=== PATIENT | female | born 1970 | race Caucasian/White ===

== ENCOUNTER 2017-03-06 12:45 | Emergency (ER) | payer MEDICAID, OTHER ==
[~2017-03-06] VITALS: Wt 130.0 kg
[~2017-03-06 12:45] MED LIST: LEVE500S8 PO; MAGN400T27 PO; ONDA-43 PO; POTA20TA96 PO; [UNRECOGNIZED DRUG - CODE] PR
[2017-03-06 12:47] VITALS: Wt 130.0 kg
[2017-03-06] MEDS ORDERED: HYDROmorphONE 2 MG/ML SYG IV STA (13:41)
--- NOTE | 2017-03-06 14:56 | RADRPT ---
PROCEDURE: US Lower extremity Venous. CLINICAL INDICATION: Right leg edema , pain TECHNIQUE: Multiple sonographic images of the right lower extremity deep venous system was obtaine d utilizing grayscale, color-flow, compressive sonography and doppler imaging with augmentation. Th e images were reviewed on a PACS workstation. COMPARISON: None. FINDINGS: There is normal compressibility and flow within the right common femoral, femoral, posterior tibial, peroneal and popliteal veins. RPTAT: AA IMPRESSION: No sonographic evidence for deep venous thrombosis. .Eliazar Burgos MD, MD Date Time Electronically viewed and signed by .Elizaar Burgos MD, on 03/06/2017 14:55 .S/
--- NOTE | 2017-03-06 14:56 | RADRPT ---
PROCEDURE: US Lower extremity Venous. CLINICAL INDICATION: Right leg edema , pain TECHNIQUE: Multiple sonographic images of the right lower extremity deep venous system was obtaine d utilizing grayscale, color-flow, compressive sonography and doppler imaging with augmentation. Th e images were reviewed on a PACS workstation. COMPARISON: None. FINDINGS: There is normal compressibility and flow within the right common femoral, femoral, posterior tibial, peroneal and popliteal veins. RPTAT: AA IMPRESSION: No sonographic evidence for deep venous thrombosis. .Eliazar Burgos MD, MD Date Time Electronically viewed and signed by .Eliazar Burgos MD, on 03/06/2017 14:55 .S/
--- NOTE | 2017-03-06 15:14 | ERD ---
ER Documentation Chief Complaint Chief Complaint R LEG PAIN DENIES INJURY; CURRENTLY ON CHEMO (LAST ONE ON MON) HPI 46y/o female patient with metastatic lung cancer, presents to the emergency department with c/o severe acute right lower extremity pain, that started 2 hours ago. pain is sharp, rated 10/10, radiated to the entire extremity. Denies fever, chills, N/V/D. Denies history of previous episodes. Treatment attempted: The patient is taking Percocet without good response ROS SYSTEMIC symptoms: no fever, chills, no night sweats, no weight loss EYE symptoms: No blurred vision, no eye discharge OTOLARYNGEAL symptoms: No hearing loss. No ear pain, no sore throat CARDIOVASCULAR symptoms: No chest pain or discomfort, no palpitations. PULMONARY symptoms: No dyspnea, no cough, no wheezing. GASTROINTESTINAL symptoms: No abdominal pain, no nausea, no vomiting, no diarrhea MUSCULOSKELETAL symptoms: + arthralgias, +muscle aches. NEUROLOGY symptoms: No confusion, no syncope, no numbness or tingling. SKIN no rashes All systems reviewed and are negative except as per history of present illness. Medications Home Meds Active Scripts Hydromorphone Hcl* (Dilaudid*) 2 Mg Tablet, 2 MG PO Q6H Y for SEVERE PAIN LEVEL 7-10, #14 TAB Prov:SANFORD SARABIA MD 03/06/17 Potassium Chloride* (Potassium Chloride*) 20 Meq Tablet.er, 20 MEQ PO DAILY, #1 TAB.SA Prov:ELDER HORN MD 07/14/15 Magnesium Oxide* (Mag-Oxide*) 400 Mg Tablet, 400 MG PO DAILY, #20 TAB Prov:ELDER HORN MD 07/14/15 Levetiracetam* (Keppra*) 500 Mg/5 Ml Solution, 500 MG PO BID, #60 BOTTLE 1 Refill Prov:ELDER HORN MD 07/14/15 Promethazine Hcl* (Phenergan* Supp) 12.5 Mg/Supp.rect Supp.rect, 12.5 MG [place] Q6H Y for NAUSEA AND OR VOMITING, #1 SUPP.RECT Prov:ELDER HORN MD 07/14/15 Ondansetron Hcl* (Zofran*) 4 Mg Tab, 4 MG PO Q4H Y for NAUSEA AND OR VOMITING, # 1 TAB Prov:ELDER HORN MD 07/14/15 Allergies Allergies: Coded Allergies: No Known Allergy (Unverified , 07/13/15) PMhx/Soc 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 Alert and fully oriented. EYES: PERRLA, EOMI, Sclera and conjunctiva appear normal. EARS: Canals clear, tympanic membranes WNL THROAT: Normal oropharynx. NECK: Supple, No lymphadenopathy. Full ROM without pain or tenderness. HEART: RRR, no rubs, murmurs, clicks or gallops. LUNGS: Clear to auscultation. ABDOMEN: Soft, non-tender without masses or hepatosplenomegaly. EXTREMITIES: No edema bilaterally, (+) pedal pulses MUSC: Full ROM, no deformity, normal back exam Result Diagram: 03/06/17 1400 03/06/17 1400 Results 24 hrs Laboratory Tests Test 03/06/17 14:00 White Blood Count 6.910^3/ul Red Blood Count 4.0710^6/ul Hemoglobin 10.7g/dl Hematocrit 34.6% Mean Corpuscular Volume 85.0fl Mean Corpuscular Hemoglobin 26.3pg Mean Corpuscular Hemoglobin Concent 30.9g/dl Red Cell Distribution Width 15.5% Platelet Count 60700^3/UL Mean Platelet Volume 10.7fl Neutrophils % % Segmented Neutrophils % (Manual) 81% Lymphocytes % % Lymphocytes % (Manual) 18% Monocytes % % Eosinophils % % Eosinophils % (Manual) 1% Basophils % % Nucleated Red Blood Cells % 0.0/100WBC Neutrophils # 10^3/ul Absolute Lymphocytes (Manual) 1.210^3/ul Lymphocytes # 1.210^3/ul Monocytes # 10^3/ul Eosinophils # 0.110^3/ul Basophils # 10^3/ul Nucleated Red Blood Cells # 10^3/ul Sodium Level 137mmol/L Potassium Level 4.4mmol/L Chloride Level 98mmol/L Carbon Dioxide Level 30mmol/L Anion Gap 13 Blood Urea Nitrogen 25mg/dl Creatinine 0.86mg/dl Glucose Level 107mg/dl Calcium Level 9.1mg/dl Total Bilirubin 1.2mg/dl Direct Bilirubin 0.00mg/dl Indirect Bilirubin 1.2mg/dl Aspartate Amino Transf (AST/SGOT) 63IU/L Alanine Aminotransferase (ALT/SGPT) 275IU/L Alkaline Phosphatase 230IU/L Total Protein 7.1g/dl Albumin 3.8g/dl Globulin 3.30g/dl Albumin/Globulin Ratio 1.15 Current Medications Medications (Trade) Dose Ordered Sig/Nikolay Route PRN Reason Start Time Stop Time Status Last Admin Dose Admin Hydromorphone HCl (Dilaudid) 2 mg ONCE STAT IV 03/06/17 13:41 03/06/17 13:44 DC 03/06/17 14:11 [place] [address] Radiology Main Line: [phone] DIAGNOSTIC IMAGING REPORT Patient: IVONNE BRASEWLL : 1970 Age: 46 Sex: F MR #: [id number] DOS: 03/06/17 0000 Ordering MD: SANFORD SARABIA MD Location: [facility] Room/Bed: PROCEDURE: US Lower extremity Venous. CLINICAL INDICATION: Right leg edema , pain TECHNIQUE: Multiple sonographic images of the right lower extremity deep venous system was obtained utilizing grayscale, color-flow, compressive sonography and doppler imaging with augmentation. The images were reviewed on a PACS workstation. COMPARISON: None. FINDINGS: There is normal compressibility and flow within the right common femoral, femoral, posterior tibial, peroneal and popliteal veins. RPTAT: AA IMPRESSION: No sonographic evidence for deep venous thrombosis. .Eliazar Burgos MD, MD Date Time Electronically viewed and signed by .Eliazar Burgos MD, MD on 03/06/2017 14: 55 .S/ CC: SANFORD SARABIA MD Procedures/[facility] 46y/o chronic female patient with history of metastatic lung cancer under current chemotherapy, presents to the ED c/o acute onset of right leg pain for 3 hours. Vital signs revealed tachycardia likely secondary to pain, Physical exam unremarkable, no cough no respiratory distress no chest pain or palpitations. Differential diagnosis include but not limited to: Acute musculoskeletal injury, stress fracture, cellulitis, abscess, shingles, DVT less likely arterial occlusion. Pertinent Data: Labs: CBC: shows anemia, most likely 2/2 malignancy and chemo, CMP: normal kidney function, transaminases elevated likely 2/2 to chemo, normal electrolytes. Venous Doppler: FINDINGS: There is normal compressibility and flow within the right common femoral, femoral, posterior tibial, peroneal and popliteal veins. Physical examination and clinical presentation consistent most likely with acute right leg pain without injury DVT is ruled out. During the ED course the patient received treatment with Dilaudid IV presenting overall improvement of the symptoms. Results and medical impression discussed with patient who agrees with management. The patient will be discharged home with a Rx for Dilaudid p.o. as needed for severe pain Side effects of prescribed narcotic medications (drowsiness, constipation, habituation) were reviewed. If symptoms persist, worsen or new symptoms develop, then patient is instructed to follow-up with the primary care provider. If the patient is unable to see the primary care provider, then return to the ED immediately. Departure Diagnosis: Primary Impression: Pain of right leg Additional Impression: Severe pain Condition: Stable Additional Instructions: Muchas walter por [facility] para [place] servicio. Esperamos que en [place] visita a la mohsen de emergencia [place] problema medico haya sido solucionado y que se sienta mucho mejor. Para estar seguros que wilcox mejoria sigue en proceso, le pedimos el favor de hacer ana ophelia de seguimiento medico con [place] doctor primario en los proximos 2-4 ortega. Lleve con usted estos documentos y las medicinas recetadas. Si etelvina sintomas empeoran y no puede tiffanie a [place] doctor, por favor regrese a mohsen de emergencia. En frances que usted no tenga un mdico de atencin primaria: Llame al mdico o clnica comunitaria de referencia que aparece abajo claudio las horas de consultorio para hacer ana ophelia para que le vean. CLINICAS: [facility] [phone] [facility] [phone] [address] [facility] [phone] [address] [facility]. [facility] [phone] [address] [place] [address] [phone] [facility]. [phone] SANFORD VALLE MD Mar 06, 2017 15:14
--- NOTE | 2017-03-06 15:14 | ERD ---
ER Documentation Chief Complaint Chief Complaint R LEG PAIN DENIES INJURY; CURRENTLY ON CHEMO (LAST ONE ON MON) HPI 46y/o female patient with metastatic lung cancer, presents to the emergency department with c/o severe acute right lower extremity pain, that started 2 hours ago. pain is sharp, rated 10/10, radiated to the entire extremity. Denies fever, chills, N/V/D. Denies history of previous episodes. Treatment attempted: The patient is taking Percocet without good response ROS SYSTEMIC symptoms: no fever, chills, no night sweats, no weight loss EYE symptoms: No blurred vision, no eye discharge OTOLARYNGEAL symptoms: No hearing loss. No ear pain, no sore throat CARDIOVASCULAR symptoms: No chest pain or discomfort, no palpitations. PULMONARY symptoms: No dyspnea, no cough, no wheezing. GASTROINTESTINAL symptoms: No abdominal pain, no nausea, no vomiting, no diarrhea MUSCULOSKELETAL symptoms: + arthralgias, +muscle aches. NEUROLOGY symptoms: No confusion, no syncope, no numbness or tingling. SKIN no rashes All systems reviewed and are negative except as per history of present illness. Medications Home Meds Active Scripts Hydromorphone Hcl* (Dilaudid*) 2 Mg Tablet, 2 MG PO Q6H Y for SEVERE PAIN LEVEL 7-10, #14 TAB Prov:SANFORD SARABIA MD 03/06/17 Potassium Chloride* (Potassium Chloride*) 20 Meq Tablet.er, 20 MEQ PO DAILY, #1 TAB.SA Prov:ELDER HORN MD 07/14/15 Magnesium Oxide* (Mag-Oxide*) 400 Mg Tablet, 400 MG PO DAILY, #20 TAB Prov:ELDER HORN MD 07/14/15 Levetiracetam* (Keppra*) 500 Mg/5 Ml Solution, 500 MG PO BID, #60 BOTTLE 1 Refill Prov:ELDER HORN MD 07/14/15 Promethazine Hcl* (Phenergan* Supp) 12.5 Mg/Supp.rect Supp.rect, 12.5 MG [place] Q6H Y for NAUSEA AND OR VOMITING, #1 SUPP.RECT Prov:ELDER HORN MD 07/14/15 Ondansetron Hcl* (Zofran*) 4 Mg Tab, 4 MG PO Q4H Y for NAUSEA AND OR VOMITING, # 1 TAB Prov:ELDER HORN MD 07/14/15 Allergies Allergies: Coded Allergies: No Known Allergy (Unverified , 07/13/15) PMhx/Soc 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 Alert and fully oriented. EYES: PERRLA, EOMI, Sclera and conjunctiva appear normal. EARS: Canals clear, tympanic membranes WNL THROAT: Normal oropharynx. NECK: Supple, No lymphadenopathy. Full ROM without pain or tenderness. HEART: RRR, no rubs, murmurs, clicks or gallops. LUNGS: Clear to auscultation. ABDOMEN: Soft, non-tender without masses or hepatosplenomegaly. EXTREMITIES: No edema bilaterally, (+) pedal pulses MUSC: Full ROM, no deformity, normal back exam Result Diagram: 03/06/17 1400 03/06/17 1400 Results 24 hrs Laboratory Tests Test 03/06/17 14:00 White Blood Count 6.910^3/ul Red Blood Count 4.0710^6/ul Hemoglobin 10.7g/dl Hematocrit 34.6% Mean Corpuscular Volume 85.0fl Mean Corpuscular Hemoglobin 26.3pg Mean Corpuscular Hemoglobin Concent 30.9g/dl Red Cell Distribution Width 15.5% Platelet Count 65342^3/UL Mean Platelet Volume 10.7fl Neutrophils % % Segmented Neutrophils % (Manual) 81% Lymphocytes % % Lymphocytes % (Manual) 18% Monocytes % % Eosinophils % % Eosinophils % (Manual) 1% Basophils % % Nucleated Red Blood Cells % 0.0/100WBC Neutrophils # 10^3/ul Absolute Lymphocytes (Manual) 1.210^3/ul Lymphocytes # 1.210^3/ul Monocytes # 10^3/ul Eosinophils # 0.110^3/ul Basophils # 10^3/ul Nucleated Red Blood Cells # 10^3/ul Sodium Level 137mmol/L Potassium Level 4.4mmol/L Chloride Level 98mmol/L Carbon Dioxide Level 30mmol/L Anion Gap 13 Blood Urea Nitrogen 25mg/dl Creatinine 0.86mg/dl Glucose Level 107mg/dl Calcium Level 9.1mg/dl Total Bilirubin 1.2mg/dl Direct Bilirubin 0.00mg/dl Indirect Bilirubin 1.2mg/dl Aspartate Amino Transf (AST/SGOT) 63IU/L Alanine Aminotransferase (ALT/SGPT) 275IU/L Alkaline Phosphatase 230IU/L Total Protein 7.1g/dl Albumin 3.8g/dl Globulin 3.30g/dl Albumin/Globulin Ratio 1.15 Current Medications Medications (Trade) Dose Ordered Sig/Nikolay Route PRN Reason Start Time Stop Time Status Last Admin Dose Admin Hydromorphone HCl (Dilaudid) 2 mg ONCE STAT IV 03/06/17 13:41 03/06/17 13:44 DC 03/06/17 14:11 [place] [address] Radiology Main Line: [phone] DIAGNOSTIC IMAGING REPORT Patient: IVONNE BRASWELL : 1970 Age: 46 Sex: F MR #: [id number] DOS: 03/06/17 0000 Ordering MD: SANFORD SARABIA MD Location: [facility] Room/Bed: PROCEDURE: US Lower extremity Venous. CLINICAL INDICATION: Right leg edema , pain TECHNIQUE: Multiple sonographic images of the right lower extremity deep venous system was obtained utilizing grayscale, color-flow, compressive sonography and doppler imaging with augmentation. The images were reviewed on a PACS workstation. COMPARISON: None. FINDINGS: There is normal compressibility and flow within the right common femoral, femoral, posterior tibial, peroneal and popliteal veins. RPTAT: AA IMPRESSION: No sonographic evidence for deep venous thrombosis. .Eliazar Burgos MD, MD Date Time Electronically viewed and signed by .Eliazar Burgos MD, MD on 03/06/2017 14: 55 .S/ CC: SANFORD SARABIA MD Procedures/[facility] 46y/o chronic female patient with history of metastatic lung cancer under current chemotherapy, presents to the ED c/o acute onset of right leg pain for 3 hours. Vital signs revealed tachycardia likely secondary to pain, Physical exam unremarkable, no cough no respiratory distress no chest pain or palpitations. Differential diagnosis include but not limited to: Acute musculoskeletal injury, stress fracture, cellulitis, abscess, shingles, DVT less likely arterial occlusion. Pertinent Data: Labs: CBC: shows anemia, most likely 2/2 malignancy and chemo, CMP: normal kidney function, transaminases elevated likely 2/2 to chemo, normal electrolytes. Venous Doppler: FINDINGS: There is normal compressibility and flow within the right common femoral, femoral, posterior tibial, peroneal and popliteal veins. Physical examination and clinical presentation consistent most likely with acute right leg pain without injury DVT is ruled out. During the ED course the patient received treatment with Dilaudid IV presenting overall improvement of the symptoms. Results and medical impression discussed with patient who agrees with management. The patient will be discharged home with a Rx for Dilaudid p.o. as needed for severe pain Side effects of prescribed narcotic medications (drowsiness, constipation, habituation) were reviewed. If symptoms persist, worsen or new symptoms develop, then patient is instructed to follow-up with the primary care provider. If the patient is unable to see the primary care provider, then return to the ED immediately. Departure Diagnosis: Primary Impression: Pain of right leg Additional Impression: Severe pain Condition: Stable Additional Instructions: Muchas walter por [facility] para [place] servicio. Esperamos que en [place] visita a la mohsen de emergencia [place] problema medico haya sido solucionado y que se sienta mucho mejor. Para estar seguros que wilcox mejoria sigue en proceso, le pedimos el favor de hacer ana ophelia de seguimiento medico con [place] doctor primario en los proximos 2-4 ortega. Lleve con usted estos documentos y las medicinas recetadas. Si etelvina sintomas empeoran y no puede tiffanie a [place] doctor, por favor regrese a mohsen de emergencia. En frances que usted no tenga un mdico de atencin primaria: Llame al mdico o clnica comunitaria de referencia que aparece abajo claudio las horas de consultorio para hacer ana ophelia para que le vean. CLINICAS: [facility] [phone] [facility] [phone] [address] [facility] [phone] [address] [facility]. [facility] [phone] [place] [id number] [phone] [facility]. [phone] SANFORD VALLE MD Mar 06, 2017 15:14
--- NOTE | 2017-03-06 15:14 | ERD ---
ER Documentation Chief Complaint Chief Complaint R LEG PAIN DENIES INJURY; CURRENTLY ON CHEMO (LAST ONE ON MON) HPI 46y/o female patient with metastatic lung cancer, presents to the emergency department with c/o severe acute right lower extremity pain, that started 2 hours ago. pain is sharp, rated 10/10, radiated to the entire extremity. Denies fever, chills, N/V/D. Denies history of previous episodes. Treatment attempted: The patient is taking Percocet without good response ROS SYSTEMIC symptoms: no fever, chills, no night sweats, no weight loss EYE symptoms: No blurred vision, no eye discharge OTOLARYNGEAL symptoms: No hearing loss. No ear pain, no sore throat CARDIOVASCULAR symptoms: No chest pain or discomfort, no palpitations. PULMONARY symptoms: No dyspnea, no cough, no wheezing. GASTROINTESTINAL symptoms: No abdominal pain, no nausea, no vomiting, no diarrhea MUSCULOSKELETAL symptoms: + arthralgias, +muscle aches. NEUROLOGY symptoms: No confusion, no syncope, no numbness or tingling. SKIN no rashes All systems reviewed and are negative except as per history of present illness. Medications Home Meds Active Scripts Hydromorphone Hcl* (Dilaudid*) 2 Mg Tablet, 2 MG PO Q6H Y for SEVERE PAIN LEVEL 7-10, #14 TAB Prov:SANFORD SARABIA MD 03/06/17 Potassium Chloride* (Potassium Chloride*) 20 Meq Tablet.er, 20 MEQ PO DAILY, #1 TAB.SA Prov:ELDER HORN MD 07/14/15 Magnesium Oxide* (Mag-Oxide*) 400 Mg Tablet, 400 MG PO DAILY, #20 TAB Prov:ELDER HORN MD 07/14/15 Levetiracetam* (Keppra*) 500 Mg/5 Ml Solution, 500 MG PO BID, #60 BOTTLE 1 Refill Prov:ELDER HORN MD 07/14/15 Promethazine Hcl* (Phenergan* Supp) 12.5 Mg/Supp.rect Supp.rect, 12.5 MG [place] Q6H Y for NAUSEA AND OR VOMITING, #1 SUPP.RECT Prov:ELDER HORN MD 07/14/15 Ondansetron Hcl* (Zofran*) 4 Mg Tab, 4 MG PO Q4H Y for NAUSEA AND OR VOMITING, # 1 TAB Prov:ELDER HORN MD 07/14/15 Allergies Allergies: Coded Allergies: No Known Allergy (Unverified , 07/13/15) PMhx/Soc 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 Alert and fully oriented. EYES: PERRLA, EOMI, Sclera and conjunctiva appear normal. EARS: Canals clear, tympanic membranes WNL THROAT: Normal oropharynx. NECK: Supple, No lymphadenopathy. Full ROM without pain or tenderness. HEART: RRR, no rubs, murmurs, clicks or gallops. LUNGS: Clear to auscultation. ABDOMEN: Soft, non-tender without masses or hepatosplenomegaly. EXTREMITIES: No edema bilaterally, (+) pedal pulses MUSC: Full ROM, no deformity, normal back exam Result Diagram: 03/06/17 1400 03/06/17 1400 Results 24 hrs Laboratory Tests Test 03/06/17 14:00 White Blood Count 6.910^3/ul Red Blood Count 4.0710^6/ul Hemoglobin 10.7g/dl Hematocrit 34.6% Mean Corpuscular Volume 85.0fl Mean Corpuscular Hemoglobin 26.3pg Mean Corpuscular Hemoglobin Concent 30.9g/dl Red Cell Distribution Width 15.5% Platelet Count 06377^3/UL Mean Platelet Volume 10.7fl Neutrophils % % Segmented Neutrophils % (Manual) 81% Lymphocytes % % Lymphocytes % (Manual) 18% Monocytes % % Eosinophils % % Eosinophils % (Manual) 1% Basophils % % Nucleated Red Blood Cells % 0.0/100WBC Neutrophils # 10^3/ul Absolute Lymphocytes (Manual) 1.210^3/ul Lymphocytes # 1.210^3/ul Monocytes # 10^3/ul Eosinophils # 0.110^3/ul Basophils # 10^3/ul Nucleated Red Blood Cells # 10^3/ul Sodium Level 137mmol/L Potassium Level 4.4mmol/L Chloride Level 98mmol/L Carbon Dioxide Level 30mmol/L Anion Gap 13 Blood Urea Nitrogen 25mg/dl Creatinine 0.86mg/dl Glucose Level 107mg/dl Calcium Level 9.1mg/dl Total Bilirubin 1.2mg/dl Direct Bilirubin 0.00mg/dl Indirect Bilirubin 1.2mg/dl Aspartate Amino Transf (AST/SGOT) 63IU/L Alanine Aminotransferase (ALT/SGPT) 275IU/L Alkaline Phosphatase 230IU/L Total Protein 7.1g/dl Albumin 3.8g/dl Globulin 3.30g/dl Albumin/Globulin Ratio 1.15 Current Medications Medications (Trade) Dose Ordered Sig/Nikolay Route PRN Reason Start Time Stop Time Status Last Admin Dose Admin Hydromorphone HCl (Dilaudid) 2 mg ONCE STAT IV 03/06/17 13:41 03/06/17 13:44 DC 03/06/17 14:11 [place] [id number] Radiology Main Line: [phone] DIAGNOSTIC IMAGING REPORT Patient: IVONNE BRASWELL : 1970 Age: 46 Sex: F MR #: [id number] DOS: 03/06/17 0000 Ordering MD: SANFORD SARABIA MD Location: [facility] Room/Bed: PROCEDURE: US Lower extremity Venous. CLINICAL INDICATION: Right leg edema , pain TECHNIQUE: Multiple sonographic images of the right lower extremity deep venous system was obtained utilizing grayscale, color-flow, compressive sonography and doppler imaging with augmentation. The images were reviewed on a PACS workstation. COMPARISON: None. FINDINGS: There is normal compressibility and flow within the right common femoral, femoral, posterior tibial, peroneal and popliteal veins. RPTAT: AA IMPRESSION: No sonographic evidence for deep venous thrombosis. .Eliazar Burgos MD, MD Date Time Electronically viewed and signed by .Eliazar Burgos MD, MD on 03/06/2017 14: 55 .S/ CC: SANFORD SARABIA MD Procedures/[facility] 46y/o chronic female patient with history of metastatic lung cancer under current chemotherapy, presents to the ED c/o acute onset of right leg pain for 3 hours. Vital signs revealed tachycardia likely secondary to pain, Physical exam unremarkable, no cough no respiratory distress no chest pain or palpitations. Differential diagnosis include but not limited to: Acute musculoskeletal injury, stress fracture, cellulitis, abscess, shingles, DVT less likely arterial occlusion. Pertinent Data: Labs: CBC: shows anemia, most likely 2/2 malignancy and chemo, CMP: normal kidney function, transaminases elevated likely 2/2 to chemo, normal electrolytes. Venous Doppler: FINDINGS: There is normal compressibility and flow within the right common femoral, femoral, posterior tibial, peroneal and popliteal veins. Physical examination and clinical presentation consistent most likely with acute right leg pain without injury DVT is ruled out. During the ED course the patient received treatment with Dilaudid IV presenting overall improvement of the symptoms. Results and medical impression discussed with patient who agrees with management. The patient will be discharged home with a Rx for Dilaudid p.o. as needed for severe pain Side effects of prescribed narcotic medications (drowsiness, constipation, habituation) were reviewed. If symptoms persist, worsen or new symptoms develop, then patient is instructed to follow-up with the primary care provider. If the patient is unable to see the primary care provider, then return to the ED immediately. Departure Diagnosis: Primary Impression: Pain of right leg Additional Impression: Severe pain Condition: Stable Additional Instructions: Muchas walter por [facility] para wilcox servicio. Esperamos que en wilcox visita a la mohsen de emergencia wilcox problema medico haya sido solucionado y que se sienta mucho mejor. Para estar seguros que wilcox mejoria sigue en proceso, le pedimos el favor de hacer ana ophelia de seguimiento medico con wilcox doctor primario en los proximos 2-4 ortega. Lleve con usted estos documentos y las medicinas recetadas. Si etelvina sintomas empeoran y no puede tiffanie a wilcox doctor, por favor regrese a mohsen de emergencia. En frances que usted no tenga un mdico de atencin primaria: Llame al mdico o clnica comunitaria de referencia que aparece abajo claudio las horas de consultorio para hacer ana ophelia para que le vean. CLINICAS: [facility] [phone] [facility] [phone] [facility] [phone] [facility]. [facility] [phone] [place] [id number] [phone] [facility]. [phone] SANFORD VALLE MD Mar 06, 2017 15:14
[2017-03-06] MEDS ORDERED: HYDR2TAB36 PO (15:53)
[2017-03-06 16:04] VITALS: BP 119/68; PULSE 77; RESP 16; TEMP 98.3
== END 2017-03-06 16:05 | disposition home or self-care (01) ==
LOC: FTE 12:45
DX: M79.604 Pain in right leg (principal); Z85.118 Personal history of other malignant neoplasm of bronchus and lung; Z85.841 Personal history of malignant neoplasm of brain
CPT/HCPCS: 36415; 80053; 85025; 93971; 96374; 99284; J1170

== ENCOUNTER 2017-03-10 15:31 | Inpatient (IN) | payer OTHER ==
[~2017-03-10] VITALS: Ht 165.1 cm; Wt 115.5 kg
[~2017-03-10 15:31] MED LIST changes: +HYDR2TAB36 PO
[2017-03-10] MEDS ORDERED: ONDANSETRON 4 MG INJ IV STA ×2 (16:19→19:15)
[2017-03-10] MEDS ORDERED: SOD CHLORIDE 0.9% 1,000 ML IV STA (16:19)
[2017-03-10] MEDS ORDERED: HYDROmorphONE 1 MG/ML SYG IV STA ×2 (16:19→19:07)
[2017-03-10 17:20] LABS: ABNORMAL IP MESSAGE 1; HEMATOCRIT 27.1 % (37.0-47.0); HEMOGLOBIN 9.2 g/dl (12.0-16.0); MEAN CORPUSCULAR HEMOGLOBIN 27.7 pg (29.0-33.0); MEAN CORPUSCULAR HGB CONC 33.9 g/dl (32.0-37.0); MEAN CORPUSCULAR VOLUME 81.6 fl (82.0-101.0); MEAN PLATELET VOLUME 11.8 fl (7.4-10.4); PLATELET COUNT 83 10^3/UL (140-415); RED BLOOD COUNT 3.32 10^6/ul (4.20-5.40); RED CELL DISTRIBUTION WIDTH 14.9 % (11.5-14.5); WHITE BLOOD COUNT 0.5 10^3/ul (4.8-10.8)
[2017-03-10 17:33] LABS: INR 1.13; PROTIME 14.5 Sec (12.2-14.2); PT RATIO 1.1
[2017-03-10 17:40] LABS: ALANINE AMINOTRANSFERASE 62 IU/L (13-69); ALBUMIN 3.2 g/dl (3.3-4.9); ALKALINE PHOSPHATASE 104 IU/L (42-121); ANION GAP 13 (8-16); ASPARTATE AMINO TRANSFERASE 15 IU/L (15-46); BILIRUBIN,INDIRECT 0.7 mg/dl (0-1.1); BILIRUBIN,TOTAL 0.7 mg/dl (0.2-1.3); BLOOD UREA NITROGEN 18 mg/dl (7-20); CALCIUM 8.1 mg/dl (8.4-10.2); CARBON DIOXIDE 24 mmol/L (21-31); CHLORIDE 95 mmol/L (97-110); CREATININE 0.74 mg/dl (0.44-1.00); GLUCOSE 119 mg/dl (70-220); POTASSIUM 3.4 mmol/L (3.5-5.1); SODIUM 129 mmol/L (135-144); TOTAL PROTEIN 6.1 g/dl (6.1-8.1)
--- NOTE | 2017-03-10 18:15 | ERD ---
ER Documentation Chief Complaint Chief Complaint C/O N/V, WEAKNESS; ON CHEMO FOR LUNG CA HPI 46-year-old woman presents with multiple episodes of vomiting abdominal cramping , diarrhea. She started a 5 day course of chemotherapy about 2 weeks ago and states her last dose of radiation was 2 years ago. Patient has a history of stage IV metastatic lung cancer and is status post craniotomy. She denies fevers or chills, no chest pain or shortness of breath, no headache or blurry vision. Patient has not been able to tolerate oral analgesics at home. ROS All systems reviewed and are negative except as per history of present illness. Medications Home Meds Active Scripts Hydromorphone Hcl* (Dilaudid*) 2 Mg Tablet, 2 MG PO Q6H Y for SEVERE PAIN LEVEL 7-10, #14 TAB Prov:SANFORD SARABIA MD 03/06/17 Potassium Chloride* (Potassium Chloride*) 20 Meq Tablet.er, 20 MEQ PO DAILY, #1 TAB.SA Prov:ELDER HORN MD 07/14/15 Magnesium Oxide* (Mag-Oxide*) 400 Mg Tablet, 400 MG PO DAILY, #20 TAB Prov:ELDER HORN MD 07/14/15 Levetiracetam* (Keppra*) 500 Mg/5 Ml Solution, 500 MG PO BID, #60 BOTTLE 1 Refill Prov:ELDER HORN MD 07/14/15 Promethazine Hcl* (Phenergan* Supp) 12.5 Mg/Supp.rect Supp.rect, 12.5 MG GA Q6H Y for NAUSEA AND OR VOMITING, #1 SUPP.RECT Prov:ELDER HORN MD 07/14/15 Ondansetron Hcl* (Zofran*) 4 Mg Tab, 4 MG PO Q4H Y for NAUSEA AND OR VOMITING, # 1 TAB Prov:ELDER HORN MD 07/14/15 Reported Medications Docusate Sodium* (Docusate Sodium*) 100 Mg Capsule, 100 MG PO DAILY, #30 CAP 03/10/17 Allergies Allergies: Coded Allergies: No Known Allergy (Unverified , 07/13/15) PMhx/Soc Metastatic lung carcinoma 5 day course of chemotherapy was started 2 weeks ago, last radiation therapy was 2 years ago, history of seizure, craniotomy, chronic pain syndrome, obesity, prior intracerebral metastatic hemorrhage History of Surgery: Yes (CRANIOTOMY ) Anesthesia Reaction: No Hx Neurological Disorder: No Hx Respiratory Disorders: Yes (LUNG CA) Hx Cardiac Disorders: No Hx Psychiatric Problems: No Hx Miscellaneous Medical Probl: Yes (BRAIN CA) Hx Alcohol Use: No Hx Substance Use: No Hx Tobacco Use: No Smoking Status: Never smoker FmHx Family History: No diabetes Physical Exam Vitals Vital Signs Date Time Temp Pulse Resp B/P Pulse Ox O2 Delivery O2 Flow Rate FiO2 03/10/17 15:34 97.3 107 24 120/71 99 Physical Exam GENERAL: Well-developed, well-nourished, dehydrated, afebrile HEENT: Dry mucous membranes, pale conjunctiva, craniotomy scar, no cervical spine tenderness or step-off deformities, no goiter, no jaundice or icterus, extraocular movements intact without pain. No submandibular induration, and no pharyngeal erythema NEURO: Alert and oriented 3, cranial nerves II through XII intact bilaterally, pupils equal round reactive to light, no focal deficits or facial asymmetry, sensation intact distally Strength 5/5 in upper and lower extremities bilaterally CARDIAC: Tachycardic and regular, no murmurs rubs or gallops LUNGS: Clear bilaterally no wheezing crackles or stridor SKIN: Warm and dry to touch, no abrasions, contusions, or hematomas, no lacerations, no ecchymosis, no target lesions, and without ulcers EXTREMITIES: No clubbing cyanosis, 2+ pitting edema in the lower extremity bilaterally, calves are bilaterally symmetrical, no Homans sign, no popliteal cord sign. Distal pulses equal and bilateral PSYCH: Normal affect without agitation or irritability Result Diagram: 03/10/17170903/10/171709 Results 24 hrs Laboratory Tests Test 03/10/17 17:10 White Blood Count 0.510^3/ul Red Blood Count 3.3210^6/ul Hemoglobin 9.2g/dl Hematocrit 27.1% Mean Corpuscular Volume 81.6fl Mean Corpuscular Hemoglobin 27.7pg Mean Corpuscular Hemoglobin Concent 33.9g/dl Red Cell Distribution Width 14.9% Platelet Count 8310^3/UL Mean Platelet Volume 11.8fl Neutrophils % % Segmented Neutrophils % (Manual) 1% Band Neutrophils % (Manual) 10% Lymphocytes % % Lymphocytes % (Manual) 54% Monocytes % % Monocytes % (Manual) 13% Eosinophils % % Eosinophils % (Manual) 16% Basophils % % Metamyelocytes % (manual) 3% Blast Cells % (Manual) 3.1% Nucleated Red Blood Cells % 0.0/100WBC Neutrophils # 10^3/ul Neutrophils # (Manual) 0.010^3/ul Band Neutrophils # 0.010^3/ul Absolute Lymphocytes (Manual) 0.210^3/ul Lymphocytes # 10^3/ul Monocytes # 10^3/ul Absolute Monocytes (Manual) 0.010^3/ul Eosinophils # 10^3/ul Basophils # 10^3/ul Metamyelocytes # 0.010^3/ul Platelet Estimate NORMAL Giant Platelets 4% Polychromasia 1+ Poikilocytosis 3+ Anisocytosis 1+ Microcytosis 1+ Prothrombin Time 14.5Sec Prothrombin Time Ratio 1.1 INR International Normalized Ratio 1.13 Sodium Level 129mmol/L Potassium Level 3.4mmol/L Chloride Level 95mmol/L Carbon Dioxide Level 24mmol/L Anion Gap 13 Blood Urea Nitrogen 18mg/dl Creatinine 0.74mg/dl Glucose Level 119mg/dl Calcium Level 8.1mg/dl Total Bilirubin 0.7mg/dl Direct Bilirubin 0.00mg/dl Indirect Bilirubin 0.7mg/dl Aspartate Amino Transf (AST/SGOT) 15IU/L Alanine Aminotransferase (ALT/SGPT) 62IU/L Alkaline Phosphatase 104IU/L Total Protein 6.1g/dl Albumin 3.2g/dl Globulin 2.90g/dl Albumin/Globulin Ratio 1.10 Lipase < 10U/L Serum HCG, Qualitative POSITIVE Beta HCG, Quantitative 70150.0mIU/ml Current Medications Medications (Trade) Dose Ordered Sig/Nikolay Route PRN Reason Start Time Stop Time Status Last Admin Dose Admin Sodium Chloride (NS) 1,000 ml @ 1,000 mls/hr Q1H STAT IV 03/10/17 16:19 03/10/17 17:18 DC 03/10/17 16:56 Hydromorphone HCl (Dilaudid) 1 mg ONCE STAT IV 03/10/17 16:19 03/10/17 16:20 DC 03/10/17 16:56 Ondansetron HCl (Zofran Inj) 4 mg ONCE STAT IV 03/10/17 16:19 03/10/17 16:20 DC 03/10/17 16:56 Procedures/MDM IV line was established patient was placed on warp knitter rhythm strip revealed a sinus tachycardia at 110 bpm with upright P and T waves. Patient was afebrile I administered 1 L normal saline intravenously, hydromorphone 1 mg IV and Zofran 4 mg IV with good effect. One view chest x-ray performed, read by me there are multiple pulmonary nodules noted bilaterally, no acute infiltrates, no pneumothorax. CBC revealed a severe leukopenia 0.5, and overall thrombocytopenia, electrolytes revealed hypokalemia 3.4, liver function tests normal, troponin negative, urinalysis negative for infection. test was positive and serum beta-hCG elevated at about 40,000, I suspect this is secondary to her cancer and not . CT scan of the abdomen and pelvis was ordered due to her vomiting had to be deferred until status is confirmed. Pelvic ultrasound was performed no IUP was noted. Please refer to radiologist dictation for full report. Patient admitted to [facility] for continued medical management and pain control. CT abdomen and pelvis deferred until further evaluation. Departure Diagnosis: Primary Impression: Metastatic lung cancer (metastasis from lung to other site) Laterality: right Qualified Code: C34.91 - Primary malignant neoplasm of right lung metastatic to other site Additional Impressions: Thrombocytopenia Anemia Anemia type: unspecified type Qualified Code: D64.9 - Anemia, unspecified type Acute hypokalemia Leukopenia due to antineoplastic chemotherapy Condition: ROSEMARIE Gray MD Mar 10, 2017 18:06
--- NOTE | 2017-03-10 18:25 | RADRPT ---
PROCEDURE: Chest x-ray CLINICAL INDICATION: Abdominal pain TECHNIQUE: Chest single view COMPARISON: 07/12/2015 FINDINGS: The heart is normal in size. The pulmonary vessels are normal in caliber. The lungs are clear. Th e costophrenic angles are sharp. The visualized bony thorax is unremarkable. IMPRESSION: No acute cardiopulmonary disease. RPTAT: HH .Norberto Thomas MD, Date Time Electronically viewed and signed by .Norberto Thomas MD, on 03/10/2017 18:25 .W/
--- NOTE | 2017-03-10 19:18 | RADRPT ---
PROCEDURE: US Pelvis. CLINICAL INDICATION: vaginal bleeding TECHNIQUE: Multiple sonographic images of the pelvis were obtained utilizing a transabdominal and endovaginal technique. The images were reviewed on a PACS workstation. COMPARISON: None. FINDINGS: Limited study due to the patient's body habitus and limited mobility. The uterus is enlarged in size and demonstrates a heterogeneous appearance of the myometrium. There is a 7.9 cm heterogeneous mass in the fundus of the uterus, suspicious for fibroid. The uterus measu res 12.2 x 7.2 x 8.0 cm. The endometrial stripe is not well seen. The endometrium measures 1.4 mm in thickness. No intrauterine gestation is noted. The ovaries are not visualized. No free fluid is present within the pelvis.. RPTAT: AA IMPRESSION: No intrauterine gestation visualized. If there is a positive test, differential diagnosis includes early , missed abort ion or ectopic . Enlarged heterogeneous uterus with a possible large fundal fibroid. Ovaries not visualized. Follow-up ultrasound and HCG levels is recommended. .Eliazar Burgos MD, MD Date Time Electronically viewed and signed by .Eliazar Burgos MD, on 03/10/2017 19:18 .S/
[2017-03-10] MEDS ORDERED: PROMETHAZINE 12.5 MG SUPP PR PRN (19:30)
[2017-03-10] MEDS ORDERED: NACL 0.9% 3 ML SYG IV SCH (19:30)
[2017-03-10 20:06] VITALS: TEMP 100.2
[2017-03-10] MEDS ORDERED: DOCU-159 PO (20:16)
[2017-03-10 20:39] LABS: ANISOCYTOSIS 1+ (0-0); BLAST% (M) 3.1 % (0-0); BURR CELLS 2+ (0-0); EOSINOPHILS % (M) 16 % (0-7); GIANT THROMBO% (M) 4 % (0-0); METAMYELOCYTES %M 3 % (0-0); MICROCYTOSIS 1+ (0-0); MONOCYTES % (M) 13 % (0-11); PLATELET ESTIMATE NORMAL; POIKILOCYTOSIS 3+ (0-0); POLYCHROMASIA 1+ (0-0)
[2017-03-10 20:40] LABS: POSITIVE DIFF @See below
[2017-03-10] MEDS: morphine 2 MG INJ IV PRN (20:53)
[2017-03-10] MEDS: LEVETIRACETAM 500 MG TAB PO SCH (20:53)
[2017-03-10] MEDS: HYDROmorphONE 2 MG TAB PO PRN (21:56)
[2017-03-10] MEDS: D5-NS + KCL 20 MEQ 1,000 ML IV SCH (21:59)
[2017-03-10 22:05] VITALS: BP 138/79; RESP 22
[2017-03-10 22:18] VITALS: Ht 165.1 cm; Wt 115.5 kg
[2017-03-10 23:00] VITALS: BP 135/74; PULSE 116
[2017-03-10] MEDS: ONDANSETRON 4 MG INJ IV PRN (23:00)
[2017-03-11 00:25] LABS: ADD UMIC YES; UR ASCORBIC ACID NEGATIVE (NEGATIVE); UR BACTERIA FEW /HPF (NONE SEEN); UR BILIRUBIN (Dip) NEGATIVE (NEGATIVE); UR BLOOD (Dip) 1+ mg/dL (NEGATIVE); UR CLARITY CLEAR (CLEAR); UR COLOR YELLOW (YELLOW); UR GLUCOSE (Dip) NEGATIVE (NEGATIVE); UR KETONES (Dip) 2+ mg/dL (NEGATIVE); UR LEUKOCYTE ESTERASE (Dip) NEGATIVE Leu/ul (NEGATIVE); UR NITRITE (Dip) NEGATIVE (NEGATIVE); UR RBC 6 /HPF (0-5); UR SPECIFIC GRAVITY (Dip) 1.023 (1.003-1.030); UR SQUAMOUS EPITHELIAL CELL FEW /HPF (FEW); UR TOTAL PROTEIN (Dip) 2+ mg/dl (NEGATIVE); UR UROBILINOGEN (Dip) NEGATIVE (NEGATIVE)
[2017-03-11 02:51] VITALS: BP 132/73; RESP 21
[2017-03-11] MEDS: morphine 2 MG INJ IV PRN ×5 (02:52→13:02)
[2017-03-11] MEDS ORDERED: ACETAMINOPHEN 325 MG TAB PO PRN (03:00)
[2017-03-11] MEDS: ONDANSETRON 4 MG INJ IV PRN ×3 (03:31→20:33)
[2017-03-11] MEDS: HYDROmorphONE 2 MG TAB PO PRN ×2 (05:09→11:22)
[2017-03-11] MEDS: D5-NS + KCL 20 MEQ 1,000 ML IV SCH ×2 (05:30→20:31)
[2017-03-11 05:46] LABS: ABNORMAL IP MESSAGE 1; HEMATOCRIT 27.1 % (37.0-47.0); HEMOGLOBIN 8.9 g/dl (12.0-16.0); MEAN CORPUSCULAR HEMOGLOBIN 26.6 pg (29.0-33.0); MEAN CORPUSCULAR HGB CONC 32.8 g/dl (32.0-37.0); MEAN CORPUSCULAR VOLUME 81.1 fl (82.0-101.0); MEAN PLATELET VOLUME 11.6 fl (7.4-10.4); PLATELET COUNT 93 10^3/UL (140-415); RED BLOOD COUNT 3.34 10^6/ul (4.20-5.40); WHITE BLOOD COUNT 0.7 10^3/ul (4.8-10.8)
[2017-03-11 06:10] LABS: ALBUMIN/GLOBULIN RATIO 1.03; BILIRUBIN,INDIRECT 0.6 mg/dl (0-1.1); BILIRUBIN,TOTAL 0.6 mg/dl (0.2-1.3); CALCIUM 7.9 mg/dl (8.4-10.2); CREATININE 0.64 mg/dl (0.44-1.00); MAGNESIUM 1.5 mg/dl (1.7-2.5); PHOSPHORUS 2.3 mg/dl (2.5-4.9); POTASSIUM 3.3 mmol/L (3.5-5.1); TOTAL PROTEIN 5.9 g/dl (6.1-8.1)
[2017-03-11 06:29] LABS: POSITIVE DIFF @See below
[2017-03-11] MEDS ORDERED: LORAZEPAM 2 MG INJ IV PRN (07:00)
[2017-03-11 08:00] VITALS: BP 132/64; RESP 20
--- NOTE | 2017-03-11 09:04 | HP ---
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 She said she recently changed oncologist and was started on chemo last week. For the past 3 days she has been experiencing above-stated symptoms. She takes 8 mg of Zofran twice a day which has not been effective. She takes 2 mg of Dilaudid and 10/325 Percocet for pain. When she presented to the ER she was found to be leukopenic with a WBC of 0.5 and she was febrile with a temperature of 101. UA and chest x-ray are negative. PMH/Family/Social Past Surgical History Past Surgical Hx: no surgical history Social History Smoking Status: Never smoker Exam/Review of Systems Vital Signs Vitals Vital Signs Date Time Temp Pulse Resp B/P Pulse Ox O2 Delivery O2 Flow Rate FiO2 03/11/17 08:00 98.6 80 20 132/64 96 03/10/17 23:00 Room Air Intake and Output 03/10/17 03/10/17 03/11/17 15:00 23:00 07:00 Intake Total 1420 ml Balance 1420 ml Exam Constitutional: other (Obese. Appears weak and tired) Head: atraumatic, normocephalic Eyes: EOMI, PERRL Respiratory: clear to auscultation, normal air movement Gastrointestinal: soft Musculoskeletal: other (Right flank tenderness as well as some tenderness and lumbar area) Extremities: normal pulses Labs Result Diagram: 03/11/17 0500 03/11/17 0500 Medications Medications Current Medications Ondansetron HCl (Zofran Inj) 4 mg Q4 PRN IV NAUSEA AND/OR VOMITING Last administered on 03/11/17 03:31; Admin Dose 4 MG; Start 03/10/17 at 19:30 Morphine Sulfate 2 mg 2 mg Q3 PRN IV SEVERE PAIN LEVEL 7-10 Last administered on 03/11/17 06:14; Admin Dose 2 MG; Start 03/10/17 at 19:30 Potassium Chloride/Dextrose/ Sod Cl (D5-NS + KCl 20 Meq) 1,000 ml @ 100 mls/hr Q10H IV Last administered on 03/10/17 21:59; Admin Dose 100 MLS/HR; Start at 19:30 Hydromorphone HCl (Dilaudid) 2 mg Q6H PRN PO SEVERE PAIN LEVEL 7-10 Last administered on 03/11/17 05:09; Admin Dose 2 MG; Start 03/10/17 at 19:30 Levetiracetam (Keppra) 500 mg BID PO Last administered on 03/10/17 20:53; Admin Dose 500 MG; Start 03/10/17 at 21:00 Magnesium Oxide (Mag-Ox 400) 400 mg DAILY PO ; Start 03/11/17 at 09:00 Potassium Chloride (Klor-Con 20) 20 meq DAILY PO ; Start 03/11/17 at 09:00 Promethazine HCl (Phenadoz) 12.5 mg Q6H PRN ND NAUSEA AND/OR VOMITING Last administered on 03/11/17 02:38; Admin Dose 12.5 MG; Start 03/10/17 at 19:30 Acetaminophen (Tylenol Tab) 650 mg Q6H PRN PO PAIN AND OR ELEVATED TEMP Last administered on 03/11/17 03:32; Admin Dose 650 MG; Start 03/11/17 at 03:00 Lorazepam 1 mg 1 mg Q4H PRN IV anxiety; Start 03/11/17 at 07:00 Cefepime HCl (Maxipime 1gm/50 ml (Pmx)) 50 ml @ 100 mls/hr Q12 IVPB ; Start at 09:00 DEMETRIUS ARCOS MD Mar 11, 2017 09:04
[2017-03-11] MEDS: POTASSIUM CHLORIDE (SR) 20 MEQ TAB PO SCH (09:43)
[2017-03-11] MEDS: LEVETIRACETAM 500 MG TAB PO SCH ×2 (09:43→20:32)
[2017-03-11] MEDS: CEFEPIME 1GM/50 ML (PMX) 50 ML IVPB SCH ×2 (09:44→20:31)
[2017-03-11] MEDS: MAGNESIUM OXIDE 400 MG TAB PO SCH (09:53)
[2017-03-11] MEDS ORDERED: MAGNESIUM SULFATE 4 GM/100 ML 100 ML IVPB ONE (10:00)
[2017-03-11] MEDS ORDERED: IOHEXOL 300MG/ML 150 ML BTL ONE (11:38)
[2017-03-11] MEDS ORDERED: SOD CHLORIDE 0.9% 100 ML ONE (11:38)
--- NOTE | 2017-03-11 11:42 | PN ---
Date/Time of Note Date/Time of Note DATE: 03/11/17 TIME: 11:42 Assessment/Plan VTE Prophylaxis VTE Prophylaxis Intervention: SCD's Lines/Catheters IV Catheter Type (from Nrsg): Midline Assessment/Plan Assessment/Plan 1. Neutropenic fever - Patient has been afebrile - Will continue on IV antibiotics and monitor for fevers 2. Intractable nausea with vomiting - Zofran PRN - IVF for hydration - Will keep NPO for now 3. Abdominal pain secondary to ileitis seen on CT - CT scan abdomen shows mildly dilated segments of jejunum with thickening of the bowel wall and with stranding extending into the adjacent mesenteric fat suggestion of ileitis. There is no evidence of high-grade bowel obstruction. There is a small hiatal hernia and the stomach is moderately distended with fluid. A normal vermiform appendix is evident. - will keep NPO, continue IV antibiotics and monitor for improvement in pain - If no improvement, will consult Gi for further recommendations 4. h/o metastatic lung cancer - Follows with Dr. Aiken oncology. Finished round of chemotherapy last Monday and has not been feeling week since Monday. Does not want to continue with chemotherapy but advised patient to discuss with Oncologist 5. electrolyte abnormalities - K and Mg replaced 6. Leukopenia - neutropenic precautions. Starting to trend up but if no improvement, will consult Hematology 7. Pancytopenia - Continue to monitor 8. Disposition - Continue monitoring on med/surg - Keep NPO for now and will try clear liquid diet when nausea and abdominal pain improves Subjective 24 Hr Interval Summary Free Text/Dictation Patient still experiencing abdominal discomfort and nausea without vomiting. Exam/Review of Systems Vital Signs Vitals Vital Signs Date Time Temp Pulse Resp B/P Pulse Ox O2 Delivery O2 Flow Rate FiO2 03/11/17 08:00 98.6 80 20 132/64 96 03/10/17 23:00 Room Air Intake and Output 03/10/17 03/10/17 03/11/17 15:00 23:00 07:00 Intake Total 1420 ml Balance 1420 ml Exam Constitutional: alert, distress, oriented Psych: nl mood/affect Head: atraumatic, normocephalic Eyes: EOMI, PERRL ENMT: mucosa pink and moist Neck: non-tender, supple Respiratory: clear to auscultation, No crackles/rales, No wheezing Cardiovascular: nl pulses, other (tachycardia, normal rhythm), No systolic murmur Gastrointestinal: soft, tender, No distended, No rebound or guarding Genitourinary - Female: CVA tenderness (right) Musculoskeletal: nl extremities to inspection Extremities: normal pulses, No cyanosis, No edema 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, nl mental status, nl speech Skin: No ecchymosis, No laceration Lymph: nl lymph nodes Results Result Diagram: 03/11/17 0500 03/11/17 0500 Results 24 hrs Laboratory Tests Test 03/10/17 17:10 03/10/17 23:42 03/11/17 05:00 White Blood Count 0.5 #L 0.7 #L Red Blood Count 3.32 L 3.34 L Hemoglobin 9.2 L 8.9 L Hematocrit 27.1 #L 27.1 L Mean Corpuscular Volume 81.6 L 81.1 L Mean Corpuscular Hemoglobin 27.7 L 26.6 L Mean Corpuscular Hemoglobin Concent 33.9 32.8 Red Cell Distribution Width 14.9 H 15.0 H Platelet Count 83 #L 93 L Mean Platelet Volume 11.8 H 11.6 H Neutrophils % Segmented Neutrophils % (Manual) 1 L Band Neutrophils % (Manual) 10 H Lymphocytes % Lymphocytes % (Manual) 54 H Monocytes % Monocytes % (Manual) 13 H Eosinophils % Eosinophils % (Manual) 16 H Basophils % Metamyelocytes % (manual) 3 H Blast Cells % (Manual) 3.1 H Nucleated Red Blood Cells % 0.0 0.0 Neutrophils # Neutrophils # (Manual) 0.0 L Band Neutrophils # 0.0 Absolute Lymphocytes (Manual) 0.2 L Lymphocytes # Monocytes # Absolute Monocytes (Manual) 0.0 L Eosinophils # Basophils # Metamyelocytes # 0.0 Platelet Estimate NORMAL Giant Platelets 4 H Polychromasia 1+ Poikilocytosis 3+ Anisocytosis 1+ Microcytosis 1+ Prothrombin Time 14.5 H Prothrombin Time Ratio 1.1 INR International Normalized Ratio 1.13 Sodium Level 129 L 131 L Potassium Level 3.4 L 3.3 L Chloride Level 95 L 97 Carbon Dioxide Level 24 25 Anion Gap 13 12 Blood Urea Nitrogen 18 14 Creatinine 0.74 0.64 Glucose Level 119 141 Calcium Level 8.1 L 7.9 L Total Bilirubin 0.7 0.6 Direct Bilirubin 0.00 0.00 Indirect Bilirubin 0.7 0.6 Aspartate Amino Transf (AST/SGOT) 15 14 L Alanine Aminotransferase (ALT/SGPT) 62 51 Alkaline Phosphatase 104 83 Total Protein 6.1 5.9 L Albumin 3.2 L 3.0 L Globulin 2.90 2.90 Albumin/Globulin Ratio 1.10 1.03 Lipase < 10 L Serum HCG, Qualitative POSITIVE Beta HCG, Quantitative 11094.0 Urine Color YELLOW Urine Clarity CLEAR Urine pH 5.0 Urine Specific [place] 1.023 Urine Ketones 2+ H Urine Nitrite NEGATIVE Urine Bilirubin NEGATIVE Urine Urobilinogen NEGATIVE Urine Leukocyte Esterase NEGATIVE Urine Microscopic RBC 6 H Urine Microscopic WBC 1 Urine Squamous Epithelial Cells FEW Urine Bacteria FEW A Urine Hemoglobin 1+ H Urine Glucose NEGATIVE Urine Total Protein 2+ H Nucleated Red Blood Cells # Hemoglobin A1c 5.4 Phosphorus Level 2.3 L Magnesium Level 1.5 L Medications Medications Current Medications Ondansetron HCl (Zofran Inj) 4 mg Q4 PRN IV NAUSEA AND/OR VOMITING Last administered on 03/11/17 03:31; Admin Dose 4 MG; Start 03/10/17 at 19:30 Morphine Sulfate 2 mg 2 mg Q3 PRN IV SEVERE PAIN LEVEL 7-10 Last administered on 03/11/17 09:44; Admin Dose 2 MG; Start 03/10/17 at 19:30 Potassium Chloride/Dextrose/ Sod Cl (D5-NS + KCl 20 Meq) 1,000 ml @ 100 mls/hr Q10H IV Last administered on 03/10/17 21:59; Admin Dose 100 MLS/HR; Start at 19:30 Hydromorphone HCl (Dilaudid) 2 mg Q6H PRN PO SEVERE PAIN LEVEL 7-10 Last administered on 03/11/17 11:22; Admin Dose 2 MG; Start 03/10/17 at 19:30 Levetiracetam (Keppra) 500 mg BID PO Last administered on 03/11/17 09:43; Admin Dose 500 MG; Start 03/10/17 at 21:00 Magnesium Oxide (Mag-Ox 400) 400 mg DAILY PO Last administered on 03/11/17 09 :53; Admin Dose 400 MG; Start 03/11/17 at 09:00 Potassium Chloride (Klor-Con 20) 20 meq DAILY PO Last administered on 09:43; Admin Dose 20 MEQ; Start 03/11/17 at 09:00 Promethazine HCl (Phenadoz) 12.5 mg Q6H PRN [place] NAUSEA AND/OR VOMITING Last administered on 03/11/17 02:38; Admin Dose 12.5 MG; Start 03/10/17 at 19:30 Acetaminophen (Tylenol Tab) 650 mg Q6H PRN PO PAIN AND OR ELEVATED TEMP Last administered on 03/11/17 03:32; Admin Dose 650 MG; Start 03/11/17 at 03:00 Lorazepam 1 mg 1 mg Q4H PRN IV anxiety; Start 03/11/17 at 07:00 Cefepime HCl 50 ml @ 100 mls/hr Q12 IVPB Last administered on 03/11/17 09:44 ; Admin Dose 100 MLS/HR; Start 03/11/17 at 09:00 Magnesium Sulfate 100 ml @ 25 mls/hr ONCE ONCE IVPB ; Start 03/11/17 at 10:00 ; Stop 03/11/17 at 13:59 Potassium Chloride (KCl 40 MEQ/250 ML NS) 250 ml @ 62.5 mls/hr Q4H IVPB ; Start 03/11/17 at 10:00; Stop 03/11/17 at 17:59 PHIL SPEARS MD Mar 11, 2017 11:42
[2017-03-11] MEDS ORDERED: SENNA/DOCUSATE NA (8.6MG/50MG) TAB PO PRN (12:00)
--- NOTE | 2017-03-11 12:24 | RADRPT ---
PROCEDURE: CT Abdomen and Pelvis with Contrast CLINICAL INDICATION: Abdominal pain, and nausea, vomiting, history of metastatic along with mets to brain TECHNIQUE: Transaxial images were obtained through the abdomen and pelvis on a multi-slice scanner following the intravenous administration of 100 ml of Omnipaque-300 contrast. Some oral contrast schaffer d previously been given. Sagittal and coronal re-formations were subsequently reconstructed. One or more of the following dose reduction techniques were used: - Automated exposure control. - Adjustment of the mA and/or kV according to patient size. - Use of iterative reconstruction technique. Radiation dose: CTDIvol = 23.07 mGy; DLP = 1408.61 mGy-cm. COMPARISON: No prior studies are available for comparison. FINDINGS: Lung bases: Multiple noncalcified nodules are seen within the inferior lung daniel bilaterally with the largest measuring 1.2 cm in diameter. No effusion or pneumothorax is identified. There is a smal l pericardial effusion. Liver: The liver is mildly enlarged and appears mildly diffusely fatty infiltrated with no focal mas s identified. Gallbladder: Surgical sudheer are seen in the gallbladder fossa. Bile ducts: There is mild intrahepatic bile duct dilatation. The common hepatic duct measures 1.2 cm in cross diameter. The common bile duct tapers normally to the head of the pancreas. Pancreas: Appears normal with no mass or inflammation evident. Spleen: Normal in size with no focal lesion. Adrenals: Normal with no mass identified. Kidneys, ureters and bladder: The renal contours are slightly lobulated compatible with cortical sca rring at the kidneys are otherwise unremarkable without evidence of urinary outflow obstruction. The ureters appear unremarkable as does the bladder. Reproductive organs: Unremarkable. Stomach, bowel, and mesentery: There is a small hiatal hernia. The stomach is moderately distended w ith fluid. There is dilatation of bowel wall thickening involving several loops of jejunum with stra nding within the adjacent fat. The ileum appears unremarkable. There is contrast within the colon wi thout evidence of colonic obstruction or inflammation. Appendix: A normal vermiform appendix is evident. Peritoneum: There is a trace amount of free fluid seen within the cul-de-sac. No free air is identif ied. There is a small fat containing umbilical hernia. Aorta: Normal in caliber with no aneurysmal dilatation. 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 Lymph nodes: No pathologically enlarged nodes are identified. Osseous structures: There is minimal anterior wedging of T11 which is not appear acute. There is los s of disc height at all 5 S1 with degenerative endplate changes. There is mild diffuse degenerative change. IMPRESSION: 1. There are mildly dilated segments of jejunum with thickening of the bowel wall and with strandi ng extending into the adjacent mesenteric fat suggestion of ileitis. There is no evidence of high-gr brian bowel obstruction. There is a small hiatal hernia and the stomach is moderately distended with f luid. A normal vermiform appendix is evident. 2. Mild renal cortical scarring without evidence of urinary outflow obstruction or ureterolithiasis within normal appearing bladder. 3. Trace amount of free intraperitoneal fluid seen in the left cul-de-sac with no free air evident. There is a small fat containing umbilical hernia. 4. Status post cholecystectomy with mild intrahepatic and extrahepatic bile duct dilatation. No cho ledocholith is identified and the pancreas appears normal. 5. Multiple noncalcified nodules are seen within both the inferior lung daniel compatible with pulm onary metastasis. 6. 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 7. Minimal old compression fracture deformity to T11 with degenerative disc and endplate changes mo st severe at L5-S1. Physician Hemanth Date Time Electronically viewed and signed by Physician Hemanth on 03/11/2017 12:23 /
[2017-03-11] MEDS: POTASSIUM CHLORIDE 250 ML IVPB SCH ×2 (12:35→17:26)
[2017-03-11] MEDS ORDERED: OMEP40CA6 PO (12:39)
[2017-03-11] MEDS ORDERED: OXYC-209 PO (12:41)
[2017-03-11 14:00] VITALS: BP 165/73; RESP 18
[2017-03-11] MEDS: HYDROmorphONE 1 MG/ML SYG IV PRN ×2 (16:10→20:33)
[2017-03-11] MEDS: metroNIDAZOLE 500 MG/NS (PMX) 100 ML IVPB SCH ×2 (17:26→21:23)
[2017-03-11 19:42] VITALS: BP 122/84; RESP 18
[2017-03-11 22:15] VITALS: BP 125/82; PULSE 107
[2017-03-12] MEDS: HYDROmorphONE 1 MG/ML SYG IV PRN ×8 (00:33→23:49)
[2017-03-12] MEDS: ONDANSETRON 4 MG INJ IV PRN ×4 (00:33→12:39)
[2017-03-12] MEDS: D5-NS + KCL 20 MEQ 1,000 ML IV SCH ×3 (01:30→20:26)
[2017-03-12 02:04] VITALS: BP 137/70; RESP 20
[2017-03-12 05:12] LABS: ABNORMAL IP MESSAGE 1; HEMATOCRIT 26.4 % (37.0-47.0); HEMOGLOBIN 8.6 g/dl (12.0-16.0); MEAN CORPUSCULAR HEMOGLOBIN 26.5 pg (29.0-33.0); MEAN CORPUSCULAR HGB CONC 32.6 g/dl (32.0-37.0); MEAN CORPUSCULAR VOLUME 81.2 fl (82.0-101.0); MEAN PLATELET VOLUME 11.2 fl (7.4-10.4); PLATELET COUNT 83 10^3/UL (140-415); RED BLOOD COUNT 3.25 10^6/ul (4.20-5.40); RED CELL DISTRIBUTION WIDTH 15.2 % (11.5-14.5); WHITE BLOOD COUNT 0.9 10^3/ul (4.8-10.8)
[2017-03-12 05:18] LABS: POSITIVE DIFF @See below
[2017-03-12] MEDS: metroNIDAZOLE 500 MG/NS (PMX) 100 ML IVPB SCH ×3 (05:30→22:50)
[2017-03-12 05:46] LABS: ALBUMIN 2.5 g/dl (3.3-4.9); CREATININE 0.62 mg/dl (0.44-1.00); PHOSPHORUS 2.1 mg/dl (2.5-4.9); POTASSIUM 3.3 mmol/L (3.5-5.1)
[2017-03-12 07:25] VITALS: BP 134/87; RESP 18
[2017-03-12] MEDS: LEVETIRACETAM 500 MG TAB PO SCH ×2 (08:19→20:26)
[2017-03-12] MEDS: POTASSIUM CHLORIDE (SR) 20 MEQ TAB PO SCH (08:19)
[2017-03-12] MEDS: MAGNESIUM OXIDE 400 MG TAB PO SCH (08:19)
[2017-03-12] MEDS: CEFEPIME 1GM/50 ML (PMX) 50 ML IVPB SCH ×2 (08:19→20:26)
--- NOTE | 2017-03-12 09:45 | PN ---
Date/Time of Note Date/Time of Note DATE: 03/12/17 TIME: 09:45 Assessment/Plan VTE Prophylaxis VTE Prophylaxis Intervention: SCD's Lines/Catheters IV Catheter Type (from Nrsg): Mid Line Assessment/Plan Assessment/Plan 1. Neutropenic fever- improving - WBC trending up - Patient has been afebrile - Will continue on IV antibiotics and monitor for fevers 2. Intractable nausea with vomiting - Zofran PRN - IVF for hydration - Clear liquid diet and will advance as tolerated 3. Abdominal pain secondary to ileitis seen on CT - CT scan abdomen shows mildly dilated segments of jejunum with thickening of the bowel wall and with stranding extending into the adjacent mesenteric fat suggestion of ileitis. There is no evidence of high-grade bowel obstruction. There is a small hiatal hernia and the stomach is moderately distended with fluid. A normal vermiform appendix is evident. - Clear diet, continue IV antibiotics and monitor for improvement in pain - If no improvement, will consult Gi for further recommendations 4. h/o metastatic lung cancer - Follows with Dr. Aiken oncology. Finished round of chemotherapy last Monday and has not been feeling week since Monday. Does not want to continue with chemotherapy but advised patient to discuss with Oncologist 5. electrolyte abnormalities - K and Mg replaced 6. Leukopenia - neutropenic precautions. Starting to trend up but if no improvement, will consult Hematology 7. Pancytopenia - Continue to monitor 8. Disposition - Continue monitoring on med/surg - clear liquid diet and advance as tolerated Subjective 24 Hr Interval Summary Free Text/Dictation Patient still experiencing nausea but tolerating clear diet. States abdominal pain is slightly better than yesterday. No acute overnight events. Exam/Review of Systems Vital Signs Vitals Vital Signs Date Time Temp Pulse Resp B/P Pulse Ox O2 Delivery O2 Flow Rate FiO2 03/12/17 07:25 98.3 115 18 134/87 96 03/10/17 23:00 Room Air Intake and Output 03/11/17 03/11/17 03/12/17 14:59 22:59 06:59 Intake Total 1380 ml 1380 ml Balance 1380 ml 1380 ml Exam Constitutional: alert, distress, oriented Head: atraumatic, normocephalic Eyes: EOMI, PERRL Neck: non-tender, supple Respiratory: clear to auscultation, No crackles/rales, No wheezing Cardiovascular: nl pulses, tachycardia, normal rhythm, No systolic murmur Gastrointestinal: soft, tender, No distended, No rebound or guarding Musculoskeletal: nl extremities to inspection Extremities: normal pulses, No cyanosis, No edema 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, nl mental status, nl speech Results Result Diagram: 03/12/1743903/12/17439 Results 24 hrs Laboratory Tests Test 03/12/17 04:40 White Blood Count 0.9 #L Red Blood Count 3.25 L Hemoglobin 8.6 L Hematocrit 26.4 L Mean Corpuscular Volume 81.2 L Mean Corpuscular Hemoglobin 26.5 L Mean Corpuscular Hemoglobin Concent 32.6 Red Cell Distribution Width 15.2 H Platelet Count 83 L Mean Platelet Volume 11.2 H Neutrophils % Lymphocytes % Monocytes % Eosinophils % Basophils % Nucleated Red Blood Cells % 0.0 Neutrophils # Lymphocytes # Monocytes # Eosinophils # Basophils # Nucleated Red Blood Cells # Sodium Level 131 L Potassium Level 3.3 L Chloride Level 98 Carbon Dioxide Level 26 Anion Gap 10 Blood Urea Nitrogen 14 Creatinine 0.62 Glucose Level 131 Calcium Level 8.0 L Phosphorus Level 2.1 L Magnesium Level 2.0 Albumin 2.5 L Medications Medications Current Medications Ondansetron HCl (Zofran Inj) 4 mg Q4 PRN IV NAUSEA AND/OR VOMITING Last administered on 03/12/17 08:19; Admin Dose 4 MG; Start 03/10/17 at 19:30 Morphine Sulfate 2 mg 2 mg Q3 PRN IV SEVERE PAIN LEVEL 7-10 Last administered on 03/11/17 13:02; Admin Dose 2 MG; Start 03/10/17 at 19:30 Potassium Chloride/Dextrose/ Sod Cl (D5-NS + KCl 20 Meq) 1,000 ml @ 100 mls/hr Q10H IV Last administered on 03/12/17 06:52; Admin Dose 100 MLS/HR; Start at 19:30 Levetiracetam (Keppra) 500 mg BID PO Last administered on 03/12/17 08:19; Admin Dose 500 MG; Start 03/10/17 at 21:00 Magnesium Oxide (Mag-Ox 400) 400 mg DAILY PO Last administered on 03/12/17 08 :19; Admin Dose 400 MG; Start 03/11/17 at 09:00 Potassium Chloride (Klor-Con 20) 20 meq DAILY PO Last administered on 08:19; Admin Dose 20 MEQ; Start 03/11/17 at 09:00 Promethazine HCl (Phenadoz) 12.5 mg Q6H PRN [place] NAUSEA AND/OR VOMITING Last administered on 03/11/17 02:38; Admin Dose 12.5 MG; Start 03/10/17 at 19:30 Acetaminophen (Tylenol Tab) 650 mg Q6H PRN PO PAIN AND OR ELEVATED TEMP Last administered on 03/11/17 03:32; Admin Dose 650 MG; Start 03/11/17 at 03:00 Lorazepam 1 mg 1 mg Q4H PRN IV anxiety; Start 03/11/17 at 07:00 Cefepime HCl (Maxipime 1gm/50 ml (Pmx)) 50 ml @ 100 mls/hr Q12 IVPB Last administered on 03/12/17 08:19; Admin Dose 100 MLS/HR; Start 03/11/17 at 09: 00 Hydromorphone HCl (Dilaudid) 1 mg Q4H PRN IV PAIN LEVEL 7-10 Last administered on 03/12/17 08:19; Admin Dose 1 MG; Start 03/11/17 at 12:00 Senna/Docusate Sodium 1 tab 1 tab DAILY PRN PO constipation; Start 03/11/17 at 12:00 Metronidazole 100 ml @ 100 mls/hr Q8 IVPB Last administered on 03/12/17 05: 30; Admin Dose 100 MLS/HR; Start 03/11/17 at 16:00 Potassium Chloride (KCl 40 MEQ/250 ML NS) 250 ml @ 62.5 mls/hr Q4H IVPB ; Start 03/12/17 at 10:30; Stop 03/12/17 at 18:29 PHIL SPEARS MD Mar 12, 2017 09:45
[2017-03-12 10:17] LABS: EOSINOPHILS % (M) 18 % (0-7); ERYTHROBLAST% (NRBC) (M) 4 % (0-0); GIANT THROMBO% (M) 17 % (0-0); MONOCYTES % (M) 5 % (0-11); PLATELET ESTIMATE DECREASED; POIKILOCYTOSIS 1+ (0-0); POLYCHROMASIA 3+ (0-0)
[2017-03-12] MEDS: POTASSIUM CHLORIDE 250 ML IVPB SCH ×2 (10:51→15:57)
[2017-03-12 14:03] VITALS: BP 150/86; RESP 18
[2017-03-12 19:32] VITALS: BP 134/79; RESP 18
[2017-03-13 02:00] VITALS: BP 128/72; RESP 20
[2017-03-13] MEDS: D5-NS + KCL 20 MEQ 1,000 ML IV SCH ×2 (02:59→13:12)
[2017-03-13] MEDS: HYDROmorphONE 1 MG/ML SYG IV PRN ×7 (02:59→21:18)
[2017-03-13] MEDS: metroNIDAZOLE 500 MG/NS (PMX) 100 ML IVPB SCH ×3 (05:56→22:27)
[2017-03-13 06:18] LABS: ABNORMAL IP MESSAGE 1; HEMOGLOBIN 7.8 g/dl (12.0-16.0); MEAN CORPUSCULAR HEMOGLOBIN 26.2 pg (29.0-33.0); MEAN CORPUSCULAR HGB CONC 32.5 g/dl (32.0-37.0); MEAN CORPUSCULAR VOLUME 80.5 fl (82.0-101.0); MEAN PLATELET VOLUME 10.5 fl (7.4-10.4); PLATELET COUNT 73 10^3/UL (140-415); RED BLOOD COUNT 2.98 10^6/ul (4.20-5.40); RED CELL DISTRIBUTION WIDTH 15.2 % (11.5-14.5); WHITE BLOOD COUNT 2.4 10^3/ul (4.8-10.8)
[2017-03-13 06:48] LABS: ALBUMIN 2.1 g/dl (3.3-4.9); CALCIUM 7.6 mg/dl (8.4-10.2); CREATININE 0.6 mg/dl (0.44-1.00); PHOSPHORUS 1.8 mg/dl (2.5-4.9); POTASSIUM 3.6 mmol/L (3.5-5.1)
[2017-03-13 06:56] LABS: POSITIVE DIFF @See below
[2017-03-13 07:06] LABS: MAGNESIUM 1.8 mg/dl (1.7-2.5)
[2017-03-13 07:38] VITALS: BP 124/79; RESP 18
[2017-03-13 07:59] LABS: BASOPHILS % (M) 1 % (0-2); BLAST% (M) 6.1 % (0-0); EOSINOPHILS % (M) 12 % (0-7); GIANT THROMBO% (M) 5 % (0-0); MONOCYTES % (M) 10 % (0-11); MYELOCYTES % (M) 1 % (0-0); PLATELET ESTIMATE DECREASED; POIKILOCYTOSIS 2+ (0-0); POLYCHROMASIA 3+ (0-0)
[2017-03-13] MEDS: CEFEPIME 1GM/50 ML (PMX) 50 ML IVPB SCH ×2 (08:14→21:16)
[2017-03-13] MEDS: LEVETIRACETAM 500 MG TAB PO SCH ×2 (08:14→21:16)
[2017-03-13] MEDS: MAGNESIUM OXIDE 400 MG TAB PO SCH (08:14)
[2017-03-13] MEDS: POTASSIUM CHLORIDE (SR) 20 MEQ TAB PO SCH (08:14)
[2017-03-13] MEDS: ONDANSETRON 4 MG INJ IV PRN (09:21)
[2017-03-13 14:15] VITALS: BP 126/72; RESP 20
--- NOTE | 2017-03-13 15:23 | PN ---
Date/Time of Note Date/Time of Note DATE: 03/13/17 TIME: 15:13 Assessment/Plan VTE Prophylaxis VTE Prophylaxis Intervention: SCD's Lines/Catheters IV Catheter Type (from Nrsg): Mid Line Assessment/Plan Assessment/Plan 1. Neutropenic fever, improved, continue on antibiotics 2. Pancytopenia, chemotherapy related, follow up with CBC 3. Intractable nausea with vomiting, chemotherapy related, zofran prn, on protonix 4. Metastatic lung cancer, Follows with Dr. Aiken, oncology 5. DVT prophylaxis: SCDs Subjective 24 Hr Interval Summary Free Text/Dictation afebrile. diffuse abdominal pain. nausea but no vomiting today Exam/Review of Systems Vital Signs Vitals Vital Signs Date Time Temp Pulse Resp B/P Pulse Ox O2 Delivery O2 Flow Rate FiO2 03/13/17 14:15 98.5 91 20 126/72 96 03/10/17 23:00 Room Air Intake and Output 03/12/17 03/12/17 03/13/17 15:00 23:00 07:00 Intake Total 300 ml 1140 ml 1385 ml Balance 300 ml 1140 ml 1385 ml Exam Constitutional: alert, oriented, well developed Psych: nl mood/affect, no complaints Head: atraumatic, normocephalic Eyes: EOMI, nl conjunctiva, nl lids ENMT: nl external ears & nose, nl lips & teeth, nl nasal mucosa & septum Neck: non-tender, supple Respiratory: clear to auscultation, normal air movement, No congested cough, No crackles/rales, No diminished breath sounds, No intercostal retraction, No labored breathing, No other, No respirations, No tactile fremitus, No wheezing Cardiovascular: nl pulses, regular rate and rhythm, No S3, No S4, No bruits, No diastolic murmur, No edema, No gallop, No irregular rhythm, No jugular venous distention (JVD), No murmurs/extra sounds, No other, No rub, No systolic murmur Gastrointestinal: nl liver, spleen, soft, tender Musculoskeletal: nl extremities to inspection, No joint tenderness, No muscle tone, No muscle weakness, No nl gait and stance, No other, No range of motion, No spine non-tender, No swelling Extremities: normal pulses, No calf tenderness, No clubbing, No cyanosis, No edema, No other, No palpable cord, No pitting pedal edema, No tenderness 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, nl mental status, nl speech, nl strength Results Result Diagram: 03/13/17 0540 03/13/17 0540 Results 24 hrs Laboratory Tests Test 03/13/17 05:40 White Blood Count 2.4 #L Red Blood Count 2.98 L Hemoglobin 7.8 L Hematocrit 24.0 L Mean Corpuscular Volume 80.5 L Mean Corpuscular Hemoglobin 26.2 L Mean Corpuscular Hemoglobin Concent 32.5 Red Cell Distribution Width 15.2 H Platelet Count 73 L Mean Platelet Volume 10.5 H Neutrophils % Segmented Neutrophils % (Manual) 42 Band Neutrophils % (Manual) 7 H Lymphocytes % Lymphocytes % (Manual) 20 Monocytes % Monocytes % (Manual) 10 Eosinophils % Eosinophils % (Manual) 12 H Basophils % Basophils % (Manual) 1 Myelocytes % (Manual) 1 H Blast Cells % (Manual) 6.1 H Nucleated Red Blood Cells % 0.0 Neutrophils # Neutrophils # (Manual) 1.0 L Band Neutrophils # 0.1 Absolute Lymphocytes (Manual) 0.4 L Lymphocytes # Monocytes # Absolute Monocytes (Manual) 0.2 L Eosinophils # Basophils # Basophils # (Manual) 0.0 Myelocytes # 0.0 Nucleated Red Blood Cells # Platelet Estimate DECREASED Giant Platelets 5 H Polychromasia 3+ Poikilocytosis 2+ Sodium Level 131 L Potassium Level 3.6 Chloride Level 103 Carbon Dioxide Level 23 Anion Gap 9 Blood Urea Nitrogen 15 Creatinine 0.60 Glucose Level 104 Calcium Level 7.6 L Phosphorus Level 1.8 L Magnesium Level 1.8 Albumin 2.1 L Medications Medications Current Medications Ondansetron HCl 4 mg 4 mg Q4 PRN IV NAUSEA AND/OR VOMITING Last administered on 03/13/17 09:21; Admin Dose 4 MG; Start 03/10/17 at 19:30 Potassium Chloride/Dextrose/ Sod Cl (D5-NS + KCl 20 Meq) 1,000 ml @ 100 mls/hr Q10H IV Last administered on 03/13/17 13:12; Admin Dose 100 MLS/HR; Start at 19:30 Levetiracetam (Keppra) 500 mg BID PO Last administered on 03/13/17 08:14; Admin Dose 500 MG; Start 03/10/17 at 21:00 Magnesium Oxide (Mag-Ox 400) 400 mg DAILY PO Last administered on 03/13/17 08 :14; Admin Dose 400 MG; Start 03/11/17 at 09:00 Potassium Chloride (Klor-Con 20) 20 meq DAILY PO Last administered on 08:14; Admin Dose 20 MEQ; Start 03/11/17 at 09:00 Promethazine HCl (Phenadoz) 12.5 mg Q6H PRN [place] NAUSEA AND/OR VOMITING Last administered on 03/11/17 02:38; Admin Dose 12.5 MG; Start 03/10/17 at 19:30 Acetaminophen (Tylenol Tab) 650 mg Q6H PRN PO PAIN AND OR ELEVATED TEMP Last administered on 03/11/17 03:32; Admin Dose 650 MG; Start 03/11/17 at 03:00 Lorazepam 1 mg 1 mg Q4H PRN IV anxiety; Start 03/11/17 at 07:00 Cefepime HCl (Maxipime 1gm/50 ml (Pmx)) 50 ml @ 100 mls/hr Q12 IVPB Last administered on 03/13/17 08:14; Admin Dose 100 MLS/HR; Start 03/11/17 at 09: 00 Senna/Docusate Sodium 1 tab 1 tab DAILY PRN PO constipation; Start 03/11/17 at 12:00 Metronidazole (Flagyl 500 Mg (Pmx)) 100 ml @ 100 mls/hr Q8 IVPB Last administered on 03/13/17 13:19; Admin Dose 100 MLS/HR; Start 03/11/17 at 16: 00 Hydromorphone HCl (Dilaudid) 1 mg Q3H PRN IV PAIN LEVEL 7-10 Last administered on 03/13/17 12:03; Admin Dose 1 MG; Start 03/12/17 at 11:00 ROMAN LOONEY MD Mar 13, 2017 15:23
[2017-03-13 20:56] VITALS: BP 129/69; RESP 18
[2017-03-14] MEDS: D5-NS + KCL 20 MEQ 1,000 ML IV SCH ×3 (00:23→21:44)
[2017-03-14] MEDS: HYDROmorphONE 1 MG/ML SYG IV PRN ×8 (00:25→21:40)
[2017-03-14 03:23] VITALS: BP 132/68; RESP 20
[2017-03-14 05:41] LABS: ABNORMAL IP MESSAGE 1; HEMATOCRIT 24.3 % (37.0-47.0); HEMOGLOBIN 7.9 g/dl (12.0-16.0); MEAN CORPUSCULAR HEMOGLOBIN 26.8 pg (29.0-33.0); MEAN CORPUSCULAR HGB CONC 32.5 g/dl (32.0-37.0); MEAN CORPUSCULAR VOLUME 82.4 fl (82.0-101.0); MEAN PLATELET VOLUME 10.7 fl (7.4-10.4); PLATELET COUNT 69 10^3/UL (140-415); RED BLOOD COUNT 2.95 10^6/ul (4.20-5.40); RED CELL DISTRIBUTION WIDTH 15.5 % (11.5-14.5)
[2017-03-14] MEDS: metroNIDAZOLE 500 MG/NS (PMX) 100 ML IVPB SCH (05:48)
[2017-03-14 05:49] LABS: POSITIVE DIFF @See below
[2017-03-14 06:20] LABS: ALBUMIN 1.8 g/dl (3.3-4.9); CALCIUM 7.5 mg/dl (8.4-10.2); CREATININE 0.55 mg/dl (0.44-1.00); MAGNESIUM 1.5 mg/dl (1.7-2.5); PHOSPHORUS 2.3 mg/dl (2.5-4.9); POTASSIUM 3.3 mmol/L (3.5-5.1)
[2017-03-14 06:21] LABS: CALCIUM 7.6 mg/dl (8.4-10.2); CREATININE 0.58 mg/dl (0.44-1.00); POTASSIUM 3.3 mmol/L (3.5-5.1)
[2017-03-14 07:57] VITALS: BP 126/59; RESP 18
[2017-03-14] MEDS: MAGNESIUM OXIDE 400 MG TAB PO SCH (08:21)
[2017-03-14] MEDS: CEFEPIME 1GM/50 ML (PMX) 50 ML IVPB SCH (08:21)
[2017-03-14] MEDS: POTASSIUM CHLORIDE (SR) 20 MEQ TAB PO SCH (08:21)
[2017-03-14] MEDS: LEVETIRACETAM 500 MG TAB PO SCH ×2 (08:21→21:04)
[2017-03-14] MEDS ORDERED: MAGNESIUM SULFATE 2 GM/50 ML 50 ML IVPB ONE (13:00)
[2017-03-14 13:24] LABS: METAMYELOCYTES %M 2 % (0-0)
[2017-03-14 14:39] VITALS: BP 131/80; RESP 16
[2017-03-14] MEDS ORDERED: POTASSIUM CHLORIDE (SR) 20 MEQ TAB PO STA (14:48)
--- NOTE | 2017-03-14 14:58 | PN ---
Date/Time of Note Date/Time of Note DATE: 03/14/17 TIME: 14:56 Assessment/Plan VTE Prophylaxis VTE Prophylaxis Intervention: SCD's Lines/Catheters IV Catheter Type (from Nrsg): Mid Line Assessment/Plan Assessment/Plan 1. Neutropenic fever, improved, stop antibiotics 2. Pancytopenia, chemotherapy related, follow up with CBC 3. Intractable nausea with vomiting, chemotherapy related, zofran prn, on protonix 4. Metastatic lung cancer, Follows with Dr. Aiken, oncology 5. DVT prophylaxis: SCDs Subjective 24 Hr Interval Summary Free Text/Dictation nausea, no vomiting, no diarrhea. still with abdominal pain. no fever or chills Exam/Review of Systems Vital Signs Vitals Vital Signs Date Time Temp Pulse Resp B/P Pulse Ox O2 Delivery O2 Flow Rate FiO2 03/14/17 14:39 98.4 80 16 131/80 98 03/10/17 23:00 Room Air Intake and Output 03/13/17 03/13/17 03/14/17 15:00 23:00 07:00 Intake Total 850 ml 1200 ml 1410 ml Balance 850 ml 1200 ml 1410 ml Exam Constitutional: alert, oriented, well developed Psych: nl mood/affect, no complaints Head: atraumatic, normocephalic Eyes: EOMI, PERRL, nl conjunctiva, nl lids, nl sclera ENMT: nl external ears & nose, nl lips & teeth, nl nasal mucosa & septum Neck: non-tender, supple Respiratory: clear to auscultation, normal air movement, No congested cough, No crackles/rales, No diminished breath sounds, No intercostal retraction, No labored breathing, No other, No respirations, No tactile fremitus, No wheezing Cardiovascular: nl pulses, regular rate and rhythm, No S3, No S4, No bruits, No diastolic murmur, No edema, No gallop, No irregular rhythm, No jugular venous distention (JVD), No murmurs/extra sounds, No other, No rub, No systolic murmur Gastrointestinal: soft Musculoskeletal: nl extremities to inspection Extremities: normal pulses, No calf tenderness, No clubbing, No cyanosis, No edema, No other, No palpable cord, No pitting pedal edema, No tenderness Neurological: PREPARER SAMPLES AND REPAIRS II-XII intact, nl mental status, nl speech, nl strength Skin: nl turgor Lymph: nl lymph nodes Results Result Diagram: 03/14/17 0437 03/14/17 0438 Results 24 hrs Laboratory Tests Test 03/14/17 04:37 03/14/17 04:38 White Blood Count 4.0 #L Red Blood Count 2.95 L Hemoglobin 7.9 L Hematocrit 24.3 L Mean Corpuscular Volume 82.4 Mean Corpuscular Hemoglobin 26.8 L Mean Corpuscular Hemoglobin Concent 32.5 Red Cell Distribution Width 15.5 H Platelet Count 69 L Mean Platelet Volume 10.7 H Neutrophils % Lymphocytes % Monocytes % Eosinophils % Basophils % Nucleated Red Blood Cells % 0.0 Neutrophils # Lymphocytes # Monocytes # Eosinophils # Basophils # Nucleated Red Blood Cells # Sodium Level 134 L 133 L Potassium Level 3.3 L 3.3 L Chloride Level 104 104 Carbon Dioxide Level 26 25 Anion Gap 7 L 7 L Blood Urea Nitrogen 10 10 Creatinine 0.58 0.55 Glucose Level 91 90 Calcium Level 7.6 L 7.5 L Phosphorus Level 2.3 L Magnesium Level 1.5 L Albumin 1.8 L Medications Medications Current Medications Ondansetron HCl 4 mg 4 mg Q4 PRN IV NAUSEA AND/OR VOMITING Last administered on 03/13/17 09:21; Admin Dose 4 MG; Start 03/10/17 at 19:30 Potassium Chloride/Dextrose/ Sod Cl (D5-NS + KCl 20 Meq) 1,000 ml @ 100 mls/hr Q10H IV Last administered on 03/14/17 11:59; Admin Dose 100 MLS/HR; Start at 19:30 Levetiracetam (Keppra) 500 mg BID PO Last administered on 03/14/17 08:21; Admin Dose 500 MG; Start 03/10/17 at 21:00 Magnesium Oxide (Mag-Ox 400) 400 mg DAILY PO Last administered on 03/14/17 08 :21; Admin Dose 400 MG; Start 03/11/17 at 09:00 Potassium Chloride (Klor-Con 20) 20 meq DAILY PO Last administered on 08:21; Admin Dose 20 MEQ; Start 03/11/17 at 09:00 Promethazine HCl (Phenadoz) 12.[address] NAUSEA AND/OR VOMITING Last administered on 03/11/17 02:38; Admin Dose 12.5 MG; Start 03/10/17 at 19:30 Acetaminophen (Tylenol Tab) 650 mg Q6H PRN PO PAIN AND OR ELEVATED TEMP Last administered on 03/11/17 03:32; Admin Dose 650 MG; Start 03/11/17 at 03:00 Lorazepam (Ativan) 1 mg Q4H PRN IV anxiety; Start 03/11/17 at 07:00 Senna/Docusate Sodium (Senokot-S) 1 tab DAILY PRN PO constipation; Start 03/11 at 12:00 Hydromorphone HCl 1 mg 1 mg Q3H PRN IV PAIN LEVEL 7-10 Last administered on 12:02; Admin Dose 1 MG; Start 03/12/17 at 11:00 Magnesium Sulfate (Magnesium Sulfate 2 Gm/50 ml) 50 ml @ 25 mls/hr ONCE ONCE IVPB Last administered on 03/14/17 13:08; Admin Dose 25 MLS/HR; Start at 13:00; Stop 03/14/17 at 14:59 ROMAN LOONEY MD Mar 14, 2017 14:58
[2017-03-14 20:20] VITALS: BP 134/73; RESP 20
[2017-03-15] MEDS: HYDROmorphONE 1 MG/ML SYG IV PRN ×8 (00:40→22:55)
[2017-03-15 01:57] VITALS: BP 122/59; RESP 20
[2017-03-15 06:21] LABS: ABNORMAL IP MESSAGE 1; HEMATOCRIT 26.2 % (37.0-47.0); HEMOGLOBIN 8.2 g/dl (12.0-16.0); MEAN CORPUSCULAR HEMOGLOBIN 26.7 pg (29.0-33.0); MEAN CORPUSCULAR HGB CONC 31.3 g/dl (32.0-37.0); MEAN CORPUSCULAR VOLUME 85.3 fl (82.0-101.0); MEAN PLATELET VOLUME 10.8 fl (7.4-10.4); NUCLEATED RED BLOOD CELLS% 1.4 /100WBC (0.0-0.0); PLATELET COUNT 82 10^3/UL (140-415); RED BLOOD COUNT 3.07 10^6/ul (4.20-5.40); RED CELL DISTRIBUTION WIDTH 15.7 % (11.5-14.5)
[2017-03-15 06:22] LABS: POSITIVE DIFF @See below
[2017-03-15] MEDS: D5-NS + KCL 20 MEQ 1,000 ML IV SCH ×3 (06:41→19:30)
[2017-03-15 07:00] LABS: CALCIUM 7.4 mg/dl (8.4-10.2); CREATININE 0.55 mg/dl (0.44-1.00); MAGNESIUM 1.8 mg/dl (1.7-2.5); PHOSPHORUS 2.7 mg/dl (2.5-4.9); POTASSIUM 4.1 mmol/L (3.5-5.1)
[2017-03-15 07:46] VITALS: BP 125/73; RESP 17
[2017-03-15 09:20] LABS: EOSINOPHILS # 0.4 10^3/ul (0.0-0.5); EOSINOPHILS % (M) 7 % (0.0-7.0); ERYTHROBLAST% (NRBC) (M) 2 % (0-0); LYMPHOCYTES # 1.9 10^3/ul (0.8-2.9); METAMYELOCYTES %M 5 % (0-0); MONOCYTE # 0.6 10^3/ul (0.3-0.9); MONOCYTES % (M) 11 % (0-11); MYELOCYTES % (M) 4 % (0-0); REACTIVE LYMPHOCYTES% (M) 3 % (0-0)
[2017-03-15] MEDS: LEVETIRACETAM 500 MG TAB PO SCH ×2 (09:47→20:48)
[2017-03-15] MEDS: MAGNESIUM OXIDE 400 MG TAB PO SCH (09:47)
[2017-03-15] MEDS: POTASSIUM CHLORIDE (SR) 20 MEQ TAB PO SCH (09:48)
[2017-03-15 15:17] VITALS: BP 140/79; RESP 16
--- NOTE | 2017-03-15 15:30 | PN ---
Date/Time of Note Date/Time of Note DATE: 03/15/17 TIME: 15:28 Assessment/Plan VTE Prophylaxis VTE Prophylaxis Intervention: SCD's Lines/Catheters IV Catheter Type (from Nrsg): Mid Line Urinary Cath still in place: No Assessment/Plan Assessment/Plan 1. Neutropenic fever, improved, stop antibiotics 2. Pancytopenia, chemotherapy related, improving 3. Intractable nausea with vomiting, chemotherapy related, improving, zofran prn , on protonix, advance diet 4. Metastatic lung cancer, Follows with Dr. Aiken, oncology 5. DVT prophylaxis: SCDs Subjective 24 Hr Interval Summary Free Text/Dictation no fever or chills. abdominal pain is much less, some retrosternal pain Exam/Review of Systems Vital Signs Vitals Vital Signs Date Time Temp Pulse Resp B/P Pulse Ox O2 Delivery O2 Flow Rate FiO2 03/15/17 15:17 98.5 85 16 140/79 96 Intake and Output 03/14/17 03/14/17 03/15/17 15:00 23:00 07:00 Intake Total 550 ml 2240 ml 1350 ml Balance 550 ml 2240 ml 1350 ml Exam Constitutional: alert, oriented, well developed Psych: nl mood/affect, no complaints Head: atraumatic, normocephalic Eyes: EOMI, PERRL, nl conjunctiva, nl lids, nl sclera ENMT: mucosa pink and moist, nl external ears & nose, nl lips & teeth, nl nasal mucosa & septum Neck: non-tender, supple Respiratory: clear to auscultation, normal air movement, No congested cough, No crackles/rales, No diminished breath sounds, No intercostal retraction, No labored breathing, No other, No respirations, No tactile fremitus, No wheezing Cardiovascular: regular rate and rhythm, No S3, No S4, No bruits, No diastolic murmur, No edema, No gallop, No irregular rhythm, No jugular venous distention (JVD), No murmurs/extra sounds, No nl pulses, No other, No rub, No systolic murmur Gastrointestinal: nl liver, spleen, soft Musculoskeletal: nl extremities to inspection Extremities: normal pulses, No calf tenderness, No clubbing, No cyanosis, No edema, No other, No palpable cord, No pitting pedal edema, No tenderness Neurological: MOLD OPERATOR II-XII intact, nl mental status, nl speech, nl strength Skin: nl turgor Lymph: nl lymph nodes Results Result Diagram: 03/15/1742303/15/17423 Results 24 hrs Laboratory Tests Test 03/15/17 04:24 White Blood Count 5.0 # Red Blood Count 3.07 L Hemoglobin 8.2 L Hematocrit 26.2 L Mean Corpuscular Volume 85.3 Mean Corpuscular Hemoglobin 26.7 L Mean Corpuscular Hemoglobin Concent 31.3 L Red Cell Distribution Width 15.7 H Platelet Count 82 L Mean Platelet Volume 10.8 H Neutrophils % Segmented Neutrophils % (Manual) 25 L Band Neutrophils % (Manual) 7 H Lymphocytes % Lymphocytes % (Manual) 38 Reactive Lymphocytes % (Manual) 3 H Monocytes % Monocytes % (Manual) 11 Eosinophils % Eosinophils % (Manual) 7 Basophils % Metamyelocytes % (manual) 5 H Myelocytes % (Manual) 4 H Nucleated Red Blood Cells % 2 H Neutrophils # Neutrophils # (Manual) 1.3 L Band Neutrophils # 0.3 Absolute Lymphocytes (Manual) 1.9 Lymphocytes # 1.9 Reactive Lymphocytes # 0.1 H Monocytes # 0.6 Absolute Monocytes (Manual) 0.5 Eosinophils # 0.4 Basophils # Metamyelocytes # 0.2 H Myelocytes # 0.2 H Nucleated Red Blood Cells # Sodium Level 136 Potassium Level 4.1 Chloride Level 104 Carbon Dioxide Level 27 Anion Gap 9 Blood Urea Nitrogen 8 Creatinine 0.55 Glucose Level 87 Calcium Level 7.4 L Phosphorus Level 2.7 Magnesium Level 1.8 Medications Medications Current Medications Ondansetron HCl 4 mg 4 mg Q4 PRN IV NAUSEA AND/OR VOMITING Last administered on 03/13/17 09:21; Admin Dose 4 MG; Start 03/10/17 at 19:30 Potassium Chloride/Dextrose/ Sod Cl (D5-NS + KCl 20 Meq) 1,000 ml @ 100 mls/hr Q10H IV Last administered on 03/15/17 06:41; Admin Dose 100 MLS/HR; Start at 19:30 Levetiracetam (Keppra) 500 mg BID PO Last administered on 03/15/17 09:47; Admin Dose 500 MG; Start 03/10/17 at 21:00 Magnesium Oxide (Mag-Ox 400) 400 mg DAILY PO Last administered on 03/15/17 09 :47; Admin Dose 400 MG; Start 03/11/17 at 09:00 Potassium Chloride (Klor-Con 20) 20 meq DAILY PO Last administered on 09:48; Admin Dose 20 MEQ; Start 03/11/17 at 09:00 Promethazine HCl (Phenadoz) 12.5 mg Q6H PRN [place] NAUSEA AND/OR VOMITING Last administered on 03/11/17 02:38; Admin Dose 12.5 MG; Start 03/10/17 at 19:30 Acetaminophen (Tylenol Tab) 650 mg Q6H PRN PO PAIN AND OR ELEVATED TEMP Last administered on 03/11/17 03:32; Admin Dose 650 MG; Start 03/11/17 at 03:00 Lorazepam (Ativan) 1 mg Q4H PRN IV anxiety; Start 03/11/17 at 07:00 Senna/Docusate Sodium (Senokot-S) 1 tab DAILY PRN PO constipation; Start 03/11 at 12:00 Hydromorphone HCl (Dilaudid) 1 mg Q3H PRN IV PAIN LEVEL 7-10 Last administered on 03/15/17 12:58; Admin Dose 1 MG; Start 03/12/17 at 11:00 ROMAN LOONEY MD Mar 15, 2017 15:30
[2017-03-15 20:57] VITALS: BP 120/68; RESP 18
[2017-03-16 02:15] VITALS: BP 123/72; PULSE 90; RESP 18
[2017-03-16] MEDS: HYDROmorphONE 1 MG/ML SYG IV PRN ×5 (04:39→20:33)
[2017-03-16] MEDS: D5-NS + KCL 20 MEQ 1,000 ML IV SCH ×3 (04:40→16:38)
[2017-03-16 06:22] LABS: ABNORMAL IP MESSAGE 1; HEMATOCRIT 26.4 % (37.0-47.0); HEMOGLOBIN 8.4 g/dl (12.0-16.0); MEAN CORPUSCULAR HEMOGLOBIN 26.7 pg (29.0-33.0); MEAN CORPUSCULAR HGB CONC 31.8 g/dl (32.0-37.0); MEAN CORPUSCULAR VOLUME 83.8 fl (82.0-101.0); MEAN PLATELET VOLUME 10.9 fl (7.4-10.4); PLATELET COUNT 109 10^3/UL (140-415); RED BLOOD COUNT 3.15 10^6/ul (4.20-5.40); RED CELL DISTRIBUTION WIDTH 15.9 % (11.5-14.5); WHITE BLOOD COUNT 6.9 10^3/ul (4.8-10.8)
[2017-03-16 06:34] LABS: POSITIVE DIFF @See below
[2017-03-16 06:57] LABS: CALCIUM 7.5 mg/dl (8.4-10.2); CREATININE 0.56 mg/dl (0.44-1.00); POTASSIUM 4.3 mmol/L (3.5-5.1)
[2017-03-16 07:55] VITALS: BP 116/59; RESP 18
[2017-03-16] MEDS: MAGNESIUM OXIDE 400 MG TAB PO SCH (08:06)
[2017-03-16] MEDS: POTASSIUM CHLORIDE (SR) 20 MEQ TAB PO SCH (08:06)
[2017-03-16] MEDS: LEVETIRACETAM 500 MG TAB PO SCH ×2 (08:06→20:30)
[2017-03-16 08:39] LABS: ANISOCYTOSIS 1+ (0-0); EOSINOPHILS % (M) 5 % (0-7); ERYTHROBLAST% (NRBC) (M) 1 % (0-0); METAMYELOCYTES %M 9 % (0-0); MICROCYTOSIS 1+ (0-0); MONOCYTES % (M) 7 % (0-11); MYELOCYTES % (M) 6 % (0-0); PLATELET ESTIMATE DECREASED; POIKILOCYTOSIS 1+ (0-0); POLYCHROMASIA 3+ (0-0); PROMYELOCYTES % (M) 1 % (0-0); REACTIVE LYMPHOCYTES% (M) 4 % (0-0)
[2017-03-16 14:00] VITALS: BP 120/61; RESP 18
--- NOTE | 2017-03-16 15:04 | DS ---
Date/Time of Note Date/Time of Note DATE: 03/16/17 TIME: 15:00 Discharge Summary Admission/Discharge Info Admit Date/Time Mar 10, 2017 at 18:30 Discharge Date/Time Discharge Diagnosis 1. Neutropenic fever, improved 2. Pancytopenia, chemotherapy related, improving 3. Intractable nausea with vomiting, chemotherapy related, improved 4. Metastatic lung cancer, Follows with Dr. 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 She said she recently changed oncologist and was started on chemo last week. For the past 3 days she has been experiencing above-stated symptoms. She takes 8 mg of Zofran twice a day which has not been effective. She takes 2 mg of Dilaudid and 10/325 Percocet for pain. When she presented to the ER she was found to be leukopenic with a WBC of 0.5 and she was febrile with a temperature of 101. UA and chest x-ray are negative. Patient was treated with antibiotics initially for neutropenic fever then stopped when WBC improved. She was treated with IVF and symptomatic treatment for nausea, vomiting and diarrhea those symptoms are improved. Patient will follow up with oncology outpatient. On 03/16/2017: WBC 6.9, H/H 8.4/26.4, PLT 109. Home Meds Active Scripts Magnesium Oxide* (Mag-Oxide*) 400 Mg Tablet, 400 MG PO DAILY, #20 TAB Prov:ELDER HORN MD 07/14/15 Levetiracetam* (Keppra*) 500 Mg/5 Ml Solution, 500 MG PO BID, #60 BOTTLE 1 Refill Prov:ELDER HORN MD 07/14/15 Promethazine Hcl* (Phenergan* Supp) 12.5 Mg/Supp.rect Supp.rect, 12.5 MG SD Q6H Y for NAUSEA AND OR VOMITING, #1 SUPP.RECT Prov:ELDER HORN MD 07/14/15 Ondansetron Hcl* (Zofran*) 4 Mg Tab, 4 MG PO Q4H Y for NAUSEA AND OR VOMITING, # 1 TAB Prov:ELDER HORN MD 07/14/15 Reported Medications Omeprazole* (Omeprazole*) 40 Mg Capsule.dr, 40 MG PO DAILY, #30 CAP 03/11/17 Discontinued Reported Medications Oxycodone HCl/Acetaminophen (Percocet 10-325 mg Tablet) 1 Each Tablet, 1 EACH PO Q4, TAB 03/11/17 Docusate Sodium* (Docusate Sodium*) 100 Mg Capsule, 100 MG PO DAILY, #30 CAP 03/10/17 Discontinued Scripts Hydromorphone Hcl* (Dilaudid*) 2 Mg Tablet, 2 MG PO Q6H Y for SEVERE PAIN LEVEL 7-10, #14 TAB Prov:SANFORD SARABIA MD 03/06/17 Potassium Chloride* (Potassium Chloride*) 20 Meq Tablet.er, 20 MEQ PO DAILY, #1 TAB.SA Prov:ELDER HORN MD 07/14/15 Follow-up Plan PCP and oncology in one week Primary Care Provider Joann Sharp Pending Labs Laboratory Tests Test 03/16/17 05:52 White Blood Count 6.910^3/ul (4.8-10.8) Red Blood Count 3.1510^6/ul (4.20-5.40) Hemoglobin 8.4g/dl (12.0-16.0) Hematocrit 26.4% (37.0-47.0) Mean Corpuscular Volume 83.8fl (82.0-101.0) Mean Corpuscular Hemoglobin 26.7pg (29.0-33.0) Mean Corpuscular Hemoglobin Concent 31.8g/dl (32.0-37.0) Red Cell Distribution Width 15.9% (11.5-14.5) Platelet Count 76783^3/UL (140-415) Mean Platelet Volume 10.9fl (7.4-10.4) Neutrophils % % (39.0-77.0) Segmented Neutrophils % (Manual) 38% (39-77) Band Neutrophils % (Manual) 10% (0-4) Lymphocytes % % (15.0-51.0) Lymphocytes % (Manual) 20% (15-51) Reactive Lymphocytes % (Manual) 4% (0-0) Monocytes % % (0.0-11.0) Monocytes % (Manual) 7% (0-11) Eosinophils % % (0.0-7.0) Eosinophils % (Manual) 5% (0-7) Basophils % % (0.0-2.0) Metamyelocytes % (manual) 9% (0-0) Myelocytes % (Manual) 6% (0-0) Promyelocytes % (Manual) 1% (0-0) Nucleated Red Blood Cells % 1% (0-0) Neutrophils # 10^3/ul (1.6-7.5) Neutrophils # (Manual) 2.710^3/ul (1.7-7.5) Band Neutrophils # 0.610^3/ul (0.0-0.6) Absolute Lymphocytes (Manual) 1.310^3/ul (0.8-2.9) Lymphocytes # 10^3/ul (0.8-2.9) Reactive Lymphocytes # 0.210^3/ul (0.0-0.0) Monocytes # 10^3/ul (0.3-0.9) Absolute Monocytes (Manual) 0.410^3/ul (0.3-0.9) Eosinophils # 10^3/ul (0.0-0.5) Basophils # 10^3/ul (0.0-0.1) Metamyelocytes # 0.610^3/ul (0.0-0.0) Myelocytes # 0.410^3/ul (0.0-0.0) Promyelocytes # 0.010^3/ul (0-0) Nucleated Red Blood Cells # 10^3/ul (0.0-0.0) Platelet Estimate DECREASED Polychromasia 3+ (0-0) Poikilocytosis 1+ (0-0) Anisocytosis 1+ (0-0) Microcytosis 1+ (0-0) Sodium Level 133mmol/L (135-144) Potassium Level 4.3mmol/L (3.5-5.1) Chloride Level 104mmol/L (97-110) Carbon Dioxide Level 24mmol/L (21-31) Anion Gap 9 (8-16) Blood Urea Nitrogen 8mg/dl (7-20) Creatinine 0.56mg/dl (0.44-1.00) Glucose Level 104mg/dl (70-220) Calcium Level 7.5mg/dl (8.4-10.2) ROMAN LOONEY MD Mar 16, 2017 15:04
[2017-03-16 20:00] VITALS: BP 113/68; RESP 19
[2017-03-17] MEDS: HYDROmorphONE 1 MG/ML SYG IV PRN ×6 (01:54→19:58)
[2017-03-17 02:00] VITALS: BP 129/69; RESP 19
[2017-03-17] MEDS: D5-NS + KCL 20 MEQ 1,000 ML IV SCH ×2 (06:08→11:30)
[2017-03-17 08:00] VITALS: BP 114/62; RESP 19
[2017-03-17] MEDS: MAGNESIUM OXIDE 400 MG TAB PO SCH (09:14)
[2017-03-17] MEDS: LEVETIRACETAM 500 MG TAB PO SCH (09:14)
[2017-03-17] MEDS: POTASSIUM CHLORIDE (SR) 20 MEQ TAB PO SCH (09:14)
[2017-03-17 14:00] VITALS: BP 103/68; RESP 19
--- NOTE | 2017-03-17 15:30 | DS ---
Date/Time of Note Date/Time of Note DATE: 03/17/17 TIME: 15:30 Discharge Summary Admission/Discharge Info Admit Date/Time Mar 10, 2017 at 18:30 Discharge Date/Time Discharge Diagnosis 1. Neutropenic fever, improved 2. Pancytopenia, chemotherapy related, improving 3. Intractable nausea with vomiting, chemotherapy related, improved 4. Metastatic lung cancer, Follows with Dr. 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 She said she recently changed oncologist and was started on chemo last week. For the past 3 days she has been experiencing above-stated symptoms. She takes 8 mg of Zofran twice a day which has not been effective. She takes 2 mg of Dilaudid and 10/325 Percocet for pain. When she presented to the ER she was found to be leukopenic with a WBC of 0.5 and she was febrile with a temperature of 101. UA and chest x-ray are negative. Patient was treated with antibiotics initially for neutropenic fever then stopped when WBC improved. She was treated with IVF and symptomatic treatment for nausea, vomiting and diarrhea those symptoms are improved. Patient will follow up with oncology outpatient. On 03/16/2017: WBC 6.9, H/H 8.4/26.4, PLT 109. Patient complained of abdominal pain yesterday that improved today. Home Meds Active Scripts Magnesium Oxide* (Mag-Oxide*) 400 Mg Tablet, 400 MG PO DAILY, #20 TAB Prov:ELDER HORN MD 07/14/15 Levetiracetam* (Keppra*) 500 Mg/5 Ml Solution, 500 MG PO BID, #60 BOTTLE 1 Refill Prov:ELDER HORN MD 07/14/15 Promethazine Hcl* (Phenergan* Supp) 12.5 Mg/Supp.rect Supp.rect, 12.5 MG NM Q6H Y for NAUSEA AND OR VOMITING, #1 SUPP.RECT Prov:ELDER HORN MD 07/14/15 Ondansetron Hcl* (Zofran*) 4 Mg Tab, 4 MG PO Q4H Y for NAUSEA AND OR VOMITING, # 1 TAB Prov:ELDER HORN MD 07/14/15 Reported Medications Omeprazole* (Omeprazole*) 40 Mg Capsule.dr, 40 MG PO DAILY, #30 CAP 03/11/17 Discontinued Reported Medications Oxycodone HCl/Acetaminophen (Percocet 10-325 mg Tablet) 1 Each Tablet, 1 EACH PO Q4, TAB 03/11/17 Docusate Sodium* (Docusate Sodium*) 100 Mg Capsule, 100 MG PO DAILY, #30 CAP 03/10/17 Discontinued Scripts Hydromorphone Hcl* (Dilaudid*) 2 Mg Tablet, 2 MG PO Q6H Y for SEVERE PAIN LEVEL 7-10, #14 TAB Prov:SANFORD SARABIA MD 03/06/17 Potassium Chloride* (Potassium Chloride*) 20 Meq Tablet.er, 20 MEQ PO DAILY, #1 TAB.SA Prov:ELDER HORN MD 07/14/15 Follow-up Plan PCP and oncology in one week Primary Care Provider ROMAN Jones MD Mar 17, 2017 15:30
== END 2017-03-17 20:24 | disposition home or self-care (01) | DRG 871 ==
LOC: E/R 15:31 → PP2 18:30
PROVIDERS: ADMIT Internal Medicine; ATTEND Internal Medicine
DX: A41.9 Sepsis, unspecified organism (principal); D61.810 Antineoplastic chemotherapy induced pancytopenia; C79.31 Secondary malignant neoplasm of brain; Z68.41 Body mass index [BMI] 40.0-44.9, adult; D70.1 Agranulocytosis secondary to cancer chemotherapy; E87.1 Hypo-osmolality and hyponatremia; E66.01 Morbid (severe) obesity due to excess calories; C34.90 Malignant neoplasm of unspecified part of unspecified bronchus or lung; R50.81 Fever presenting with conditions classified elsewhere; G40.909 Epilepsy, unspecified, not intractable, without status epilepticus; G89.4 Chronic pain syndrome; R11.2 Nausea with vomiting, unspecified; T45.1X5A Adverse effect of antineoplastic and immunosuppressive drugs, initial encounter; Y92.019 Unspecified place in single-family (private) house as the place of occurrence of the external cause
CPT/HCPCS: 36415; 71010; 74177; 76801; 76817; 80048; 80053; 80069; 81001; 83036; 83690; 83735; 84100; 84702; 84703; 85025; 85610; 87040; 87086; 96374; 96375; 96376; 97163; J0692; J1170; J2270; J2405; J3475; J3480; J7030; Q9967

== ENCOUNTER → 2017-04-04 | Outpatient (CLI) | payer OTHER ==
[~2017-04-04] MED LIST changes: -HYDR2TAB36 PO; +OMEP40CA6 PO; +ONDA8TAB83 PO; -POTA20TA96 PO
--- NOTE | 2017-04-04 14:25 | RADRPT ---
PROCEDURE: Right knee radiographs. CLINICAL INDICATION: Trauma. Right knee pain. TECHNIQUE: Three views. Frontal, lateral, and oblique. COMPARISON: No prior studies are available for comparison. FINDINGS: There is an acute supracondylar fracture of the distal femur with angulation apex-anterior. There is marked surrounding soft tissue swelling. There is a joint effusion. The articular surfaces are intact. There are degenerative changes with osteophytes arising from the joint margins. There is no lytic or blastic lesion. There is no radiopaque foreign body. IMPRESSION: 1. Acute supracondylar fracture of the distal femur with angulation apex-anterior. 2. Surrounding soft tissue swelling. 3. Joint effusion. 4. Mild degenerative changes of the right knee. 5. Otherwise unremarkable images of the right knee. RPTAT: QQ .Louis Valentin MD, MD Date Time Electronically viewed and signed by .Louis Valentin MD, on 04/04/2017 14:24 .R/
== END | disposition home or self-care (01) ==
LOC: RAD 13:12
PROVIDERS: ATTEND Emergency Medicine
DX: M25.561 Pain in right knee (principal); M25.461 Effusion, right knee
CPT/HCPCS: 73562

== ENCOUNTER 2017-04-07 08:59 | Inpatient (IN) | payer OTHER ==
[~2017-04-07] VITALS: Ht 162.6 cm; Wt 107.0 kg
[~2017-04-07 08:59] MED LIST changes: -ONDA8TAB83 PO
[2017-04-07] MEDS ORDERED: SOD CHLORIDE 0.9% 1,000 ML IV STA (09:09)
[2017-04-07] MEDS ORDERED: ONDANSETRON 4 MG INJ IV STA (09:09)
[2017-04-07] MEDS ORDERED: HYDROmorphONE 1 MG/ML SYG IV STA ×2 (09:09→13:42)
--- NOTE | 2017-04-07 09:30 | RADRPT ---
PROCEDURE: Chest x-ray CLINICAL INDICATION: Shortness of breath TECHNIQUE: Chest single view COMPARISON: 03/10/2017 FINDINGS: The heart is normal in size. The pulmonary vessels are normal in caliber. Lung volumes are low. No confluent pneumonia seen. The costophrenic angles are sharp. The visualized bony thorax is unremar kable. IMPRESSION: No acute cardiopulmonary disease. Low lung volumes RPTAT: HH .Norberto Thomas MD, MD Date Time Electronically viewed and signed by .Norberto Thomas MD, on 04/07/2017 09:30 .W/
[2017-04-07 09:49] LABS: BASOPHIL # 0.1 10^3/ul (0.0-0.1); BASOPHILS % 0.6 % (0.0-2.0); EOSINOPHILS # 0.3 10^3/ul (0.0-0.5); EOSINOPHILS % 3.9 % (0.0-7.0); HEMATOCRIT 28.3 % (37.0-47.0); HEMOGLOBIN 8.8 g/dl (12.0-16.0); LYMPHOCYTES # 1.5 10^3/ul (0.8-2.9); MEAN CORPUSCULAR HEMOGLOBIN 27.3 pg (29.0-33.0); MEAN CORPUSCULAR HGB CONC 31.1 g/dl (32.0-37.0); MEAN CORPUSCULAR VOLUME 87.9 fl (82.0-101.0); MEAN PLATELET VOLUME 10.4 fl (7.4-10.4); MONOCYTE # 0.8 10^3/ul (0.3-0.9); NEUTROPHILS % 64.8 % (39.0-77.0); PLATELET COUNT 237 10^3/UL (140-415); RED BLOOD COUNT 3.22 10^6/ul (4.20-5.40); RED CELL DISTRIBUTION WIDTH 17.6 % (11.5-14.5); WHITE BLOOD COUNT 7.8 10^3/ul (4.8-10.8)
--- NOTE | 2017-04-07 09:51 | RADRPT ---
PROCEDURE: XR Knee. CLINICAL INDICATION: Pain TECHNIQUE: AP, lateral and oblique view of the right knee were obtained. The images reviewed on a PACS workstation. COMPARISON: 04/04/2017 FINDINGS: Again noted is a supracondylar fracture with impaction. The alignment of the fracture fragments is u nchanged. No new fractures are seen. Fracture cleft does not appear to extend to the articular surfa ce. The medial lateral joint spaces are well preserved. Bones are moderately osteopenic. There is a small knee joint effusion. IMPRESSION: 1. A stable appearance of supracondylar fracture with impaction and mild angulation. 2. The alignment of the fracture fragments is unchanged. 3. No new fractures are seen. 4. Small knee joint effusion. 5. Mild osteopenia 6. There is an area of mild sclerosis along the intramedullary space on the lateral side in the reg ion of the fracture. Given the history of cancer, this could represent a bone lesion/pathologic frac ture. Recommend obtaining a CT scan for further clarification. RPTAT: HH .Norberto Thomas MD, Date Time Electronically viewed and signed by .Norberto Thomas MD, on 04/07/2017 09:51 .W/
--- NOTE | 2017-04-07 09:58 | ERD ---
ER Documentation Chief Complaint Chief Complaint R90, BIBA FROM , SINCE LAST NIGHT WITH VOMITTING, R KNEE PAIN HPI This is a 46-year-old female with a history of metastatic lung cancer to the bone and brain who presents with multiple complaints that include chest pain, shortness of breath, headache, nausea. She is also been describing several weeks of right knee pain. She denies any fall or injury. No history of DVT or pulmonary embolism. The chest pain is occasionally sharp, no significant pleuritic pain, no hemoptysis. Headache is mild at this time, gradual in onset. Her last chemotherapy was 1 month ago. ROS All systems reviewed and are negative except as per history of present illness. Medications Home Meds Active Scripts Levetiracetam* (Keppra*) 500 Mg/5 Ml Solution, 500 MG PO BID, #60 BOTTLE 1 Refill Prov:ELDER HORN MD 07/14/15 Reported Medications Ondansetron Hcl* (Ondansetron Hcl*) 8 Mg Tablet, 8 MG PO Q6H Y for NAUSEA AND OR VOMITING, TAB 04/07/17 Omeprazole* (Omeprazole*) 40 Mg Capsule.dr, 40 MG PO DAILY, #30 CAP 03/11/17 Discontinued Scripts Magnesium Oxide* (Mag-Oxide*) 400 Mg Tablet, 400 MG PO DAILY, #20 TAB Prov:ELDER HORN MD 07/14/15 Promethazine Hcl* (Phenergan* Supp) 12.5 Mg/Supp.rect Supp.rect, 12.5 MG TN Q6H Y for NAUSEA AND OR VOMITING, #1 SUPP.RECT Prov:ELDER HORN MD 07/14/15 Ondansetron Hcl* (Zofran*) 4 Mg Tab, 4 MG PO Q4H Y for NAUSEA AND OR VOMITING, # 1 TAB Prov:ELDER HORN MD 07/14/15 Allergies Allergies: Coded Allergies: No Known Allergy (Unverified , 04/07/17) PMhx/Soc History of Surgery: Yes (BRAIN SUGERY 2013, OVARIAN REMOVAL 2011, CHOLECYSTECTOMY 2004) Anesthesia Reaction: No Hx Neurological Disorder: Yes (HX OF SEIZURE) Hx Respiratory Disorders: Yes (LUNG CA) Hx Cardiac Disorders: No Hx Psychiatric Problems: No Hx Miscellaneous Medical Probl: Yes (morbid obesity, lung CA w mets to brain, crainotomy, seizure) Hx Alcohol Use: No Hx Substance Use: No Hx Tobacco Use: No FmHx Family History: No diabetes Physical Exam Vitals Vital Signs Date Time Temp Pulse Resp B/P Pulse Ox O2 Delivery O2 Flow Rate FiO2 04/07/17 13:52 81 136/71 99 Room Air 04/07/17 12:15 79 18 128/71 99 Room Air 04/07/17 09:10 98.9 72 14 121/68 100 Physical Exam General: Well developed, well nourished, no acute distress Head: Normocephalic, atraumatic. Eyes: Pupils equally reactive, EOM intact ENT: Moist mucous membranes Neck: Supple, no lymphadenopathy Respiratory: Lungs clear bilaterally, no distress Cardiovascular: RRR, no murmurs, rubs, or gallops Abdominal: Soft, non-tender, non-distended, no peritoneal signs : Deferred MSK: Negative Homans sign bilaterally. mild soft tissue tenderness to the right knee with limited range of motion secondary to pain. Neurologic: Alert and oriented, moving all extremities, normal speech, no focal weakness, no cerebellar signs Skin: No rash Psych: Normal mood Result Diagram: 04/07/17 0910 04/07/17 0910 Results 24 hrs Laboratory Tests Test 04/07/17 09:10 04/07/17 10:14 04/07/17 11:50 White Blood Count 7.810^3/ul Red Blood Count 3.2210^6/ul Hemoglobin 8.8g/dl Hematocrit 28.3% Mean Corpuscular Volume 87.9fl Mean Corpuscular Hemoglobin 27.3pg Mean Corpuscular Hemoglobin Concent 31.1g/dl Red Cell Distribution Width 17.6% Platelet Count 33362^3/UL Mean Platelet Volume 10.4fl Neutrophils % 64.8% Lymphocytes % 19.0% Monocytes % 10.0% Eosinophils % 3.9% Basophils % 0.6% Nucleated Red Blood Cells % 0.0/100WBC Neutrophils # 5.010^3/ul Lymphocytes # 1.510^3/ul Monocytes # 0.810^3/ul Eosinophils # 0.310^3/ul Basophils # 0.110^3/ul Nucleated Red Blood Cells # 0.010^3/ul Prothrombin Time 12.8Sec Prothrombin Time Ratio 1.0 INR International Normalized Ratio 0.95 Activated Partial Thromboplast Time 27.8Sec Sodium Level 138mmol/L Potassium Level 3.9mmol/L Chloride Level 103mmol/L Carbon Dioxide Level 28mmol/L Anion Gap 11 Blood Urea Nitrogen 14mg/dl Creatinine 0.74mg/dl Glucose Level 99mg/dl Lactic Acid Level 1.4mmol/L 0.9mmol/L Calcium Level 9.1mg/dl Total Bilirubin 0.5mg/dl Direct Bilirubin 0.00mg/dl Indirect Bilirubin 0.5mg/dl Aspartate Amino Transf (AST/SGOT) 33IU/L Alanine Aminotransferase (ALT/SGPT) 33IU/L Alkaline Phosphatase 104IU/L Troponin I 2.910ng/ml Total Protein 6.6g/dl Albumin 3.5g/dl Globulin 3.10g/dl Albumin/Globulin Ratio 1.12 Urine Color COLORLESS Urine Clarity CLEAR Urine pH 7.0 Urine Specific Steger 1.004 Urine Ketones NEGATIVEmg/dL Urine Nitrite NEGATIVEmg/dL Urine Bilirubin NEGATIVEmg/dL Urine Urobilinogen NEGATIVEmg/dL Urine Leukocyte Esterase NEGATIVELeu/ul Urine Hemoglobin NEGATIVEmg/dL Urine Glucose NEGATIVEmg/dL Urine Total Protein NEGATIVEmg/dl Current Medications Medications (Trade) Dose Ordered Sig/Nikolay Route PRN Reason Start Time Stop Time Status Last Admin Dose Admin Sodium Chloride (NS) 1,000 ml @ 1,000 mls/hr Q1H STAT IV 04/07/17 09:09 04/07/17 10:08 DC 04/07/17 09:33 Ondansetron HCl (Zofran Inj) 4 mg ONCE STAT IV 04/07/17 09:09 04/07/17 09:12 DC 04/07/17 09:32 Hydromorphone HCl (Dilaudid) 1 mg ONCE STAT IV 04/07/17 09:09 04/07/17 09:12 DC 04/07/17 09:33 IV Flush 10 ml 10 ml STK-MED ONCE .ROUTE 04/07/17 10:39 04/07/17 10:40 DC Sodium Chloride 100 ml @ ud STK-MED ONCE .ROUTE 04/07/17 10:39 04/07/17 10:40 DC Iohexol (Omnipaque) 100 ml @ ud STK-MED ONCE .ROUTE 04/07/17 10:39 04/07/17 10:40 DC Iohexol (Omnipaque 350mg/ ml) 50 ml STK-MED ONCE .ROUTE 04/07/17 10:39 04/07/17 10:40 DC Hydromorphone HCl (Dilaudid) 1 mg ONCE STAT IV 04/07/17 13:42 04/07/17 13:45 DC 04/07/17 13:51 Aspirin (Aspirin) 324 mg ONCE ONCE PO 04/07/17 14:00 04/07/17 14:01 DC 04/07/17 13:51 Ondansetron HCl (Zofran Inj) 4 mg ER BRIDGE PRN IV NAUSEA AND/OR VOMITING 04/07/17 14:00 04/08/17 13:59 Acetaminophen (Tylenol Tab) 650 mg ER BRIDGE PRN PO MILD PAIN/FEVER 04/07/17 14:00 04/08/17 13:59 Procedures/MDM EKG, MONITORS, & DIAGNOSTIC IMAGING: EKG: I reviewed and interpreted a 12-lead EKG. Rhythm: Normal sinus rhythm Ectopy: None Intervals: No abnormalities ST segments: No elevations or depressions T waves: No contiguous inversions Chest x-ray: I reviewed and interpreted a 1 view of the chest Mediastinum: No enlargement Cardiac silhouette: No cardiomegaly Airspace: Clear lung daniel bilaterally without evidence of pneumothorax Bones: No evidence of fracture CT brain: No evidence of acute intracranial process CTPA: IMPRESSION: 1. No evidence of acute pulmonary emboli. No evidence of aortic aneurysm or dissection. Cardiomegaly. 2. Numerous pulmonary nodules scattered throughout both lungs, most likely consistent with malignancy/metastatic disease. 3. No focal air space disease/consolidation. No pleural effusions. 4. Status post cholecystectomy. Mild intrahepatic and extrahepatic biliary dilatation. X-ray right knee: IMPRESSION: 1. A stable appearance of supracondylar fracture with impaction and mild angulation. 2. The alignment of the fracture fragments is unchanged. 3. No new fractures are seen. 4. Small knee joint effusion. 5. Mild osteopenia 6. There is an area of mild sclerosis along the intramedullary space on the lateral side in the region of the fracture. Given the history of cancer, this could represent a bone lesion/pathologic fracture. Recommend obtaining a CT scan for further clarification. RPTAT: PROCEDURE: PROCEDURES: Splint Application Note: Splint type: Knee immobilizer Extremity: Right lower extremity Indication: Knee fracture The patient was consented at bedside prior to splint application and states understanding of risks, benefits, and alternatives. The patient was neurovascularly intact prior to and status post application of the splint. The patient tolerated the procedure well and there were no complications. LAB INTERPRETATION: Troponin elevation MEDICAL DECISION MAKING: The patient has metastatic cancer from the lung to the brain. I spoke to the patient's oncologist, Dr. Aiken, phone #[phone]. He states that the patient has advanced disease process. He also reviewed an x-ray of the right knee from several days ago that showed a knee fracture. He states the patient has no evidence of persistent lesions in the brain, anticoagulation would be appropriate if the patient truly has a pulmonary embolism. There seems to be a significant disconnect between the patient's understanding of her prognosis and what is described by her oncologist. Her oncologist reports significant and advanced disease that is likely end-stage. The patient does not report similar understanding. Further inpatient care will likely be required, consideration of palliative care consultation would be reasonable. The patient has multiple etiologies for her pain. She appears to have a potential occult fracture of the right knee concerning for metastatic disease process. The patient is at risk for pulmonary embolism. The patient will need CT imaging of the head, CT pulmonary angiogram and inpatient hospitalization. Low concern for cardiac etiology. ER COURSE: Patient's troponin is elevated. She is not having active chest pain. Patient' s EKG was nonischemic. The patient CTPA is negative for pulmonary embolism. Unclear etiology of troponin leak as given her age it seems unlikely this is acute plaque rupture though aspirin provided. The patient will benefit from inpatient hospitalization, echocardiogram, serial enzymes. Consider troponin leak is related to malignancy. The patient has no evidence of DVT on ultrasound. She also has evidence of a subacute knee fracture and will benefit from nonemergent orthopedic surgery consultation. She was immobilized as documented above. I kept the patient and/or family informed of laboratory and diagnostic imaging results throughout the emergency room course. DISPOSITION PLAN: Telemetry admission CONSULTATION: [] Accepting care team and consultations: I discussed the current laboratory data, diagnostic imaging and emergency care provided. Admitting team: Dr. Celestin Admitting team indication: Insurance directed Departure Diagnosis: Primary Impression: Metastatic primary lung cancer Laterality: unspecified laterality Qualified Code: C34.90 - Primary malignant neoplasm of lung metastatic to other site, unspecified laterality Additional Impressions: Non-ST elevation myocardial infarction (NSTEMI) Headache Headache type: unspecified Headache chronicity pattern: acute headache Intractability: not intractable Qualified Code: R51 - Acute nonintractable headache, unspecified headache type Closed fracture of right knee region Condition: Stable RAIN CURTIS MD Apr 07, 2017 09:58
--- NOTE | 2017-04-07 10:02 | RADRPT ---
PROCEDURE: US Lower extremity Venous. CLINICAL INDICATION: leg pain hx of ca TECHNIQUE: Multiple sonographic images of the bilateral lower extremity deep venous system was obt ained utilizing grayscale, color-flow, compressive sonography and doppler imaging with augmentation. The images were reviewed on a PACS workstation. COMPARISON: None. FINDINGS: There is normal compressibility and flow within the bilateral common femoral, deep femoral, superfic ial femoral, posterior tibial, peroneal and popliteal veins. IMPRESSION: No sonographic evidence for deep venous thrombosis. RPTAT:AAJJ Physician Jessica Date Time Electronically viewed and signed by Physician Jessica on 04/07/2017 10:01 SUNNY/
[2017-04-07 10:11] LABS: ALBUMIN 3.5 g/dl (3.3-4.9); ALBUMIN/GLOBULIN RATIO 1.12; BILIRUBIN,INDIRECT 0.5 mg/dl (0-1.1); BILIRUBIN,TOTAL 0.5 mg/dl (0.2-1.3); CALCIUM 9.1 mg/dl (8.4-10.2); CREATININE 0.74 mg/dl (0.44-1.00); POTASSIUM 3.9 mmol/L (3.5-5.1); TOTAL PROTEIN 6.6 g/dl (6.1-8.1)
[2017-04-07 10:14] LABS: INR 0.95; PROTIME 12.8 Sec (11.9-14.9)
[2017-04-07 10:15] LABS: PARTIAL THROMBOPLASTIN TIME 27.8 Sec (25.0-35.0)
[2017-04-07 10:33] LABS: TROPONIN-I 2.91 ng/ml (0.00-0.12)
[2017-04-07] MEDS ORDERED: IOHEXOL 350MG/ML 50 ML BTL ONE (10:39)
[2017-04-07] MEDS ORDERED: SOD CHLORIDE 0.9% 100 ML ONE (10:39)
[2017-04-07] MEDS ORDERED: IOHEXOL 100 ML ONE (10:39)
[2017-04-07 11:10] LABS: ADD UMIC NO; UR ASCORBIC ACID NEGATIVE (NEGATIVE); UR BILIRUBIN (Dip) NEGATIVE (NEGATIVE); UR BLOOD (Dip) NEGATIVE (NEGATIVE); UR CLARITY CLEAR (CLEAR); UR COLOR COLORLESS (YELLOW); UR GLUCOSE (Dip) NEGATIVE (NEGATIVE); UR KETONES (Dip) NEGATIVE (NEGATIVE); UR LEUKOCYTE ESTERASE (Dip) NEGATIVE Leu/ul (NEGATIVE); UR NITRITE (Dip) NEGATIVE (NEGATIVE); UR SPECIFIC GRAVITY (Dip) 1.004 (1.003-1.030); UR TOTAL PROTEIN (Dip) NEGATIVE (NEGATIVE); UR UROBILINOGEN (Dip) NEGATIVE (NEGATIVE)
[2017-04-07] MEDS ORDERED: ONDA8TAB83 PO (11:24)
--- NOTE | 2017-04-07 13:15 | RADRPT ---
PROCEDURE: CT Brain without contrast. CLINICAL INDICATION: Metastatic cancer TECHNIQUE: A CT of the brain was performed on a multidetector CT scanner utilizing axial imaging f rom the skull base through the vertex without IV contrast. Multiplanar reformatted images were made . Images were reviewed on a PACS workstation. The CTDIvol is 43 mGy and the DLP is a 630 mGycm. DICOM images are available. One or more of the following dose reduction techniques were utilized: 1.) Automated exposure control 2.) Adjustment of the mA +/- kV according to patient's size 3.) Use of iterative reconstruction technique. COMPARISON: None FINDINGS: There is no intracranial hemorrhage, mass effect, or midline shift. No extra-axial fluid collection is seen. There is mild to moderate diffuse cerebral volume loss with sulcal and ventricular dilatat ion. Ventricles are in the midline and of normal configuration. The density of the brain is normal, and the jimenez white matter differentiation appears well-preserved. The visualized paranasal sinuses are grossly unremarkable. Patient is status post right temporal parietal craniotomy. IMPRESSION: 1. No evidence of acute intracranial pathology. 2. Atrophy. .Donovan Abraham MD, Date Time Electronically viewed and signed by .Donovan Abraham MD, on 04/07/2017 13:15 .A/
--- NOTE | 2017-04-07 13:36 | RADRPT ---
PROCEDURE: CTA Chest and pulmonary angiogram. CLINICAL INDICATION: Chest pain and shortness of breath. TECHNIQUE: CT scan of the chest and CT pulmonary angiogram was performed on a multidetector high-r esolution CT scanner. High-resolution thin slice coronal and sagittal imaging was obtained from the axial source images. 3-D volumetric rendered post processing was not performed. The patient was e xamined following the uncomplicated intravenous administration of 110 cc of Omnipaque-300 E. The brandon ges were reviewed on a PACS workstation. The total exam CTDI equals 68 mGy, and the total exam DLP e quals 750 mGy-cm. One or more of the following dose reduction techniques were used: Automated exposure control. Adjustment of the mA and/or kV according to patient size. Use of iterative reconstruction technique. DICOM images are available. COMPARISON: None FINDINGS: CT chest: The trachea is midline. Thyroid gland is unremarkable. There is no significant axillary lymphadenopa thy. There is no significant mediastinal or hilar lymphadenopathy. The aorta is within normal limits. The pulmonary arterial trunk is normal size. There is no evidence of abnormal filling defects in the main pulmonary artery and its segmental branches. The heart size is enlarged. There is no significant pericardial effusion. Numerous pulmonary nodules are scattered throughout the entire lungs, highly concerning for malignan cy/metastatic disease. No focal air space disease/consolidation. No pleural effusions. Airways are p atent. The visualized upper abdominal organs demonstrates nonvisualization of the gallbladder. There is mil d intrahepatic dilatation and dilatation of the common bile duct. The visualized osseous structures demonstrate multilevel degenerative disease of the spine. IMPRESSION: 1. No evidence of acute pulmonary emboli. No evidence of aortic aneurysm or dissection. Cardiomegaly . 2. Numerous pulmonary nodules scattered throughout both lungs, most likely consistent with malignanc y/metastatic disease. 3. No focal air space disease/consolidation. No pleural effusions. 4. Status post cholecystectomy. Mild intrahepatic and extrahepatic biliary dilatation. RPTAT: AAPP Physician Mecca Date Time Electronically viewed and signed by Physician Mecca on 04/07/2017 13:36 JL/
[2017-04-07] MEDS ORDERED: ONDANSETRON 4 MG INJ IV PRN ×2 (14:00→15:30)
[2017-04-07] MEDS ORDERED: ACETAMINOPHEN 325 MG TAB PO PRN (14:00)
[2017-04-07] MEDS ORDERED: ASPIRIN 81 MG TAB PO ONE (14:00)
--- NOTE | 2017-04-07 15:32 | HP ---
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 1. Chest pain secondary to an STEMI 2. Right knee pain likely secondary to possible pathologic fracture seen on x- ray 3. 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 Known metastatic choriocarcinoma: Chemo currently on hold per patient's wishes. Plan Patient is admitted to telemetry floor, full dose anticoagulation, aspirin therapy, cardiology consult, trend troponins, 2D echo, pain management, low- dose beta-yoko. CT of the lower extremity for her right knee, consider orthopedic consultation if necessary. Continue home Keppra for seizures. At this time oncology consultation is not indicated as patient has voluntarily chosen not to pursue chemo, however upon review of findings and her CT if patient chooses to speak to an oncologist we can consult one at that time. In the interim we will continue supportive care. Further interventions per clinical course. HPI/ROS Admit Date/Time Admit Date/Time 04/07/17 Hx of Present Illness This is a very pleasant 46-year-old unfortunate female with a history of metastatic choriocarcinoma with metastases to the lungs as well as to the brain. She is managed as outpatient with Dr. Aiken but after 4 years of different therapies, at this time she has chosen to put chemotherapy on hold. After her last session about 5 weeks ago, she developed severe pain in her right knee. This pain has kept her debilitated, and now she is only able to ambulate with assist assistance and sometimes with a walker. She has had multiple outpatient imaging studies for this knee, and she is still awaiting insurance approval to see an outpatient surgeon for her knee. The knee pain is quite severe, but also 2 days ago she started having intermittent left-sided chest pain that was associated with some shortness of breath. Pain is said to radiates to the back of her neck. She has no history of coronary artery disease. She has a history of high blood pressure or diabetes. ROS 12 point review if systems was done and pertinent findings are as noted. PMH/Family/Social Past Medical History * Metastatic choriocarcinoma * GERD * R knee pain * Seizure episode from brain mets Past Surgical History * Hx of craniectomy in the past "to relieve pressure from mets" * Cholecystectomy Family History Significant Family History: diabetes Social History Alcohol Use: none Smoking Status: Never smoker Drug Use: none Exam/Review of Systems Vital Signs Vitals VS - Last 72 Hours, by Label Date Time Temp Pulse Resp B/P Pulse Ox O2 Delivery O2 Flow Rate FiO2 04/07/17 13:52 81 136/71 99 Room Air 04/07/17 12:15 79 18 128/71 99 Room Air 04/07/17 09:10 98.9 72 14 121/68 100 Vital Signs Date Time Temp Pulse Resp B/P Pulse Ox O2 Delivery O2 Flow Rate FiO2 04/07/17 13:52 81 136/71 99 Room Air 04/07/17 12:15 18 04/07/17 09:10 98.9 Exam Constitutional: alert, oriented, other (obese, currently comfortable) Psych: nl mood/affect Head: normocephalic Eyes: PERRL ENMT: mucosa pink and moist Neck: non-tender, supple Respiratory: clear to auscultation, No crackles/rales, No labored breathing Cardiovascular: regular rate and rhythm, No murmurs/extra sounds Gastrointestinal: bowel sounds, non-tender, soft Musculoskeletal: other (Right knee swollen and immobilized in a soft brace.) Extremities: No edema Neurological: nl mental status, No focal weakness Skin: No rash or lesions Labs Result Diagram: 04/07/17 0910 04/07/17 0910 Procedures Procedures Laboratory Tests Test 04/07/17 09:10 04/07/17 10:14 04/07/17 11:50 White Blood Count 7.810^3/ul Red Blood Count 3.2210^6/ul Hemoglobin 8.8g/dl Hematocrit 28.3% Mean Corpuscular Volume 87.9fl Mean Corpuscular Hemoglobin 27.3pg Mean Corpuscular Hemoglobin Concent 31.1g/dl Red Cell Distribution Width 17.6% Platelet Count 27458^3/UL Mean Platelet Volume 10.4fl Neutrophils % 64.8% Lymphocytes % 19.0% Monocytes % 10.0% Eosinophils % 3.9% Basophils % 0.6% Nucleated Red Blood Cells % 0.0/100WBC Neutrophils # 5.010^3/ul Lymphocytes # 1.510^3/ul Monocytes # 0.810^3/ul Eosinophils # 0.310^3/ul Basophils # 0.110^3/ul Nucleated Red Blood Cells # 0.010^3/ul Prothrombin Time 12.8Sec Prothrombin Time Ratio 1.0 INR International Normalized Ratio 0.95 Activated Partial Thromboplast Time 27.8Sec Sodium Level 138mmol/L Potassium Level 3.9mmol/L Chloride Level 103mmol/L Carbon Dioxide Level 28mmol/L Anion Gap 11 Blood Urea Nitrogen 14mg/dl Creatinine 0.74mg/dl Glucose Level 99mg/dl Lactic Acid Level 1.4mmol/L 0.9mmol/L Calcium Level 9.1mg/dl Total Bilirubin 0.5mg/dl Direct Bilirubin 0.00mg/dl Indirect Bilirubin 0.5mg/dl Aspartate Amino Transf (AST/SGOT) 33IU/L Alanine Aminotransferase (ALT/SGPT) 33IU/L Alkaline Phosphatase 104IU/L Troponin I 2.910ng/ml Total Protein 6.6g/dl Albumin 3.5g/dl Globulin 3.10g/dl Albumin/Globulin Ratio 1.12 Urine Color COLORLESS Urine Clarity CLEAR Urine pH 7.0 Urine Specific [place] 1.004 Urine Ketones NEGATIVEmg/dL Urine Nitrite NEGATIVEmg/dL Urine Bilirubin NEGATIVEmg/dL Urine Urobilinogen NEGATIVEmg/dL Urine Leukocyte Esterase NEGATIVELeu/ul Urine Hemoglobin NEGATIVEmg/dL Urine Glucose NEGATIVEmg/dL Urine Total Protein NEGATIVEmg/dl Current Medications Medications (Trade) Dose Ordered Sig/Nikolay Route PRN Reason Start Time Stop Time Status Last Admin Dose Admin Sodium Chloride (NS) 1,000 ml @ 1,000 mls/hr Q1H STAT IV 04/07/17 09:09 04/07/17 10:08 DC 04/07/17 09:33 1,000 MLS/HR Ondansetron HCl (Zofran Inj) 4 mg ONCE STAT IV 04/07/17 09:09 04/07/17 09:12 DC 04/07/17 09:32 4 MG Hydromorphone HCl (Dilaudid) 1 mg ONCE STAT IV 04/07/17 09:09 04/07/17 09:12 DC 04/07/17 09:33 1 MG IV Flush 10 ml 10 ml STK-MED ONCE .ROUTE 04/07/17 10:39 04/07/17 10:40 DC Sodium Chloride 100 ml @ ud STK-MED ONCE .ROUTE 04/07/17 10:39 04/07/17 10:40 DC Iohexol (Omnipaque) 100 ml @ ud STK-MED ONCE .ROUTE 04/07/17 10:39 04/07/17 10:40 DC Iohexol (Omnipaque 350mg/ ml) 50 ml STK-MED ONCE .ROUTE 04/07/17 10:39 04/07/17 10:40 DC Hydromorphone HCl (Dilaudid) 1 mg ONCE STAT IV 04/07/17 13:42 04/07/17 13:45 DC 04/07/17 13:51 1 MG Aspirin (Aspirin) 324 mg ONCE ONCE PO 04/07/17 14:00 04/07/17 14:01 DC 04/07/17 13:51 324 MG Ondansetron HCl (Zofran Inj) 4 mg ER BRIDGE PRN IV NAUSEA AND/OR VOMITING 04/07/17 14:00 04/08/17 13:59 Acetaminophen (Tylenol Tab) 650 mg ER BRIDGE PRN PO MILD PAIN/FEVER 04/07/17 14:00 04/08/17 13:59 PROCEDURE: XR Knee. CLINICAL INDICATION: Pain TECHNIQUE: AP, lateral and oblique view of the right knee were obtained. The images reviewed on a PACS workstation. COMPARISON: 04/04/2017 FINDINGS: Again noted is a supracondylar fracture with impaction. The alignment of the fracture fragments is unchanged. No new fractures are seen. Fracture cleft does not appear to extend to the articular surface. The medial lateral joint spaces are well preserved. Bones are moderately osteopenic. There is a small knee joint effusion. IMPRESSION: 1. A stable appearance of supracondylar fracture with impaction and mild angulation. 2. The alignment of the fracture fragments is unchanged. 3. No new fractures are seen. 4. Small knee joint effusion. 5. Mild osteopenia 6. There is an area of mild sclerosis along the intramedullary space on the lateral side in the region of the fracture. Given the history of cancer, this could represent a bone lesion/pathologic fracture. Recommend obtaining a CT scan for further clarification. RPTAT: HH .Norberto Thomas MD, MD Date Time Electronically viewed and signed by .Norberto Thomas MD, MD on 04/07/2017 09:51 .W/ CC: ARIN CURTIS MD PROCEDURE: CTA Chest and pulmonary angiogram. CLINICAL INDICATION: Chest pain and shortness of breath. TECHNIQUE: CT scan of the chest and CT pulmonary angiogram was performed on a multidetector high-resolution CT scanner. High-resolution thin slice coronal and sagittal imaging was obtained from the axial source images. 3-D volumetric rendered post processing was not performed. The patient was examined following the uncomplicated intravenous administration of 110 cc of Omnipaque-300 E. The images were reviewed on a PACS workstation. The total exam CTDI equals 68 mGy, and the total exam DLP equals 750 mGy-cm. One or more of the following dose reduction techniques were used: Automated exposure control. Adjustment of the mA and/or kV according to patient size. Use of iterative reconstruction technique. DICOM images are available. COMPARISON: None FINDINGS: CT chest: The trachea is midline. Thyroid gland is unremarkable. There is no significant axillary lymphadenopathy. There is no significant mediastinal or hilar lymphadenopathy. The aorta is within normal limits. The pulmonary arterial trunk is normal size. There is no evidence of abnormal filling defects in the main pulmonary artery and its segmental branches. The heart size is enlarged. There is no significant pericardial effusion. Numerous pulmonary nodules are scattered throughout the entire lungs, highly concerning for malignancy/metastatic disease. No focal air space disease/ consolidation. No pleural effusions. Airways are patent. The visualized upper abdominal organs demonstrates nonvisualization of the gallbladder. There is mild intrahepatic dilatation and dilatation of the common bile duct. The visualized osseous structures demonstrate multilevel degenerative disease of the spine. IMPRESSION: 1. No evidence of acute pulmonary emboli. No evidence of aortic aneurysm or dissection. Cardiomegaly. 2. Numerous pulmonary nodules scattered throughout both lungs, most likely consistent with malignancy/metastatic disease. 3. No focal air space disease/consolidation. No pleural effusions. 4. Status post cholecystectomy. Mild intrahepatic and extrahepatic biliary dilatation. RPTAT: AAPP Physician Mecca Date Time Electronically viewed and signed by Physician Mecca on 04/07/2017 13:36 JL/ CC: RAIN CURTIS MD PROCEDURE: Chest x-ray CLINICAL INDICATION: Shortness of breath TECHNIQUE: Chest single view COMPARISON: 03/10/2017 FINDINGS: The heart is normal in size. The pulmonary vessels are normal in caliber. Lung volumes are low. No confluent pneumonia seen. The costophrenic angles are sharp. The visualized bony thorax is unremarkable. IMPRESSION: No acute cardiopulmonary disease. Low lung volumes RPTAT: HH .Norberto Thomas MD, MD Date Time Electronically viewed and signed by .Norberto Thomas MD, MD on 04/07/2017 09:30 .W/ CC: RAIN CURTIS MD I reviewed EKG Rate: Within normal limits Rhythm: sinus Note: No ST elevation or depressions noted concerning for acute ischemic event. PROCEDURE: US Lower extremity Venous. CLINICAL INDICATION: leg pain hx of ca TECHNIQUE: Multiple sonographic images of the bilateral lower extremity deep venous system was obtained utilizing grayscale, color-flow, compressive sonography and doppler imaging with augmentation. The images were reviewed on a PACS workstation. COMPARISON: None. FINDINGS: There is normal compressibility and flow within the bilateral common femoral, deep femoral, superficial femoral, posterior tibial, peroneal and popliteal veins. IMPRESSION: No sonographic evidence for deep venous thrombosis. RPTAT:AAJJ Demian Piña, Physician Date Time Electronically viewed and signed by Demian Piña, Physician on 04/07/2017 10: 01 MC/ CC: RAIN CURTIS MD ABE, BOLATITO M. Apr 07, 2017 15:27
[2017-04-07 16:42] LABS: CK-MB 12.8 ng/ml (0.0-2.4)
[2017-04-07 16:44] LABS: TROPONIN-I 4.17 ng/ml (0.00-0.12)
--- NOTE | 2017-04-07 17:06 | RADRPT ---
PROCEDURE: CT SCAN right knee without IV contrast CLINICAL INDICATION: Pain, fracture, evaluate for pathologic fracture TECHNIQUE: Transaxial slices through the chest was obtained without IV contrast.. Additional sagit enrico and coronal MPR images were acquired. . DICOM images available One of more of the following dose reduction techniques were utilized: -automatic exposure control.-a djustment of the mA and/or kV according to patient size. -Use of iterative reconstruction technique. Contrast: None Radiation Dose: CTDI 18.39 mGy. DLP 644.81 mGy-cm. COMPARISON: 04/07/2017 FINDINGS: Supracondylar fracture is seen without significant displacement. Abnormal sclerotic lesion in the in tramedullary region with periosteal reaction noted anterior to it suggestive of pathologic fracture. Osseous structures appear osteopenic. Femoral condyles, patella, proximal tibia appears intact. Sup rapatellar effusion is seen. IMPRESSION: Abnormal sclerotic trabeculae in the medullary cavity of the distal femur at the fracture site is wilcox ggestive of infiltrative process. Periosteal reaction is seen in the anterior tissue. Findings hig hly suggestive of pathologic fracture. RPTAT: AAOO Physician Krystal Date Time Electronically viewed and signed by Physician Krystal on 04/07/2017 17:06 MB/
[2017-04-07] MEDS: morphine 4 MG/ML VIAL IV PRN ×2 (17:19→20:00)
[2017-04-07] MEDS: ENOXAPARIN 100 MG/ML SYG SC SCH (17:24)
[2017-04-07 18:11] VITALS: BP 124/80; RESP 16
[2017-04-07 18:16] VITALS: PULSE 69
[2017-04-07 20:09] VITALS: BP 115/58; RESP 20
[2017-04-07 20:28] VITALS: PULSE 73
[2017-04-07] MEDS: LEVETIRACETAM (100 MG/ML) 5ML CUP PO SCH (21:24)
[2017-04-07] MEDS: METOPROLOL 25 MG TAB PO SCH (21:25)
[2017-04-07] MEDS ORDERED: HYDROCODONE/APAP (10/325) TAB PO PRN (22:00)
[2017-04-07 22:11] LABS: CK-MB 8.5 ng/ml (0.0-2.4)
[2017-04-07 22:14] LABS: TROPONIN-I 3.12 ng/ml (0.00-0.12)
[2017-04-07] MEDS: morphine (ER) 15 MG TAB PO SCH (22:41)
[2017-04-07] MEDS: HYDROmorphONE 1 MG/ML SYG IV PRN (22:42)
[2017-04-07 23:15] VITALS: Ht 162.6 cm; Wt 107.0 kg
[2017-04-08] VITALS (13 sets, daily range): BP systolic 110–127; BP diastolic 57–65; PULSE 50–84; RESP 18–19
[2017-04-08 03:51] LABS: CK-MB 5.25 ng/ml (0.0-2.4)
[2017-04-08 04:09] LABS: TROPONIN-I 2.05 ng/ml (0.00-0.12)
[2017-04-08] MEDS: HYDROmorphONE 1 MG/ML SYG IV PRN ×5 (05:02→21:19)
[2017-04-08] MEDS: ENOXAPARIN 100 MG/ML SYG SC SCH ×2 (05:09→17:00)
[2017-04-08] MEDS: PANTOPRAZOLE (EC) 40 MG TAB PO SCH (05:55)
[2017-04-08] MEDS: LEVETIRACETAM (100 MG/ML) 5ML CUP PO SCH ×2 (08:10→21:33)
[2017-04-08] MEDS: morphine (ER) 15 MG TAB PO SCH ×2 (08:11→21:19)
[2017-04-08] MEDS: ASPIRIN (EC) 81 MG TAB PO SCH (08:11)
[2017-04-08] MEDS: METOPROLOL 25 MG TAB PO SCH ×2 (08:12→21:35)
[2017-04-08 08:26] LABS: BASOPHIL # 0.1 10^3/ul (0.0-0.1); BASOPHILS % 0.7 % (0.0-2.0); EOSINOPHILS # 0.4 10^3/ul (0.0-0.5); EOSINOPHILS % 5.1 % (0.0-7.0); HEMATOCRIT 27.6 % (37.0-47.0); HEMOGLOBIN 8.6 g/dl (12.0-16.0); LYMPHOCYTES # 1.6 10^3/ul (0.8-2.9); LYMPHOCYTES % 22.7 % (15.0-51.0); MEAN CORPUSCULAR HEMOGLOBIN 27.3 pg (29.0-33.0); MEAN CORPUSCULAR HGB CONC 31.2 g/dl (32.0-37.0); MEAN CORPUSCULAR VOLUME 87.6 fl (82.0-101.0); MEAN PLATELET VOLUME 10.9 fl (7.4-10.4); MONOCYTE # 0.6 10^3/ul (0.3-0.9); NEUTROPHIL # 4.2 10^3/ul (1.6-7.5); NEUTROPHILS % 61.3 % (39.0-77.0); PLATELET COUNT 238 10^3/UL (140-415); RED BLOOD COUNT 3.15 10^6/ul (4.20-5.40); RED CELL DISTRIBUTION WIDTH 17.4 % (11.5-14.5); WHITE BLOOD COUNT 6.9 10^3/ul (4.8-10.8)
[2017-04-08 08:41] LABS: INR 1.09; PROTIME 14.3 Sec (11.9-14.9); PT RATIO 1.1
[2017-04-08 08:42] LABS: PARTIAL THROMBOPLASTIN TIME 43.7 Sec (25.0-35.0)
[2017-04-08 08:46] LABS: CALCIUM 9.1 mg/dl (8.4-10.2); CHOL/HDL RATIO 3.8 RATIO; CREATININE 0.82 mg/dl (0.44-1.00); MAGNESIUM 1.8 mg/dl (1.7-2.5); POTASSIUM 4.1 mmol/L (3.5-5.1)
[2017-04-08 09:15] LABS: THYROID STIMULATING HORMONE 0.632 MIU/L (0.465-4.680)
--- NOTE | 2017-04-08 11:28 | CONS ---
Date/Time of Note Date/Time of Note DATE: 04/08/17 TIME: 11:23 Assessment/Plan Assessment/Plan Additional Assessment/Plan Assessment: 1. NSTEMI 2. Metastatic choriocarcinoma 3. Right knee pathologic fracture 4. Seizures secondary to brain metastases stable on Keppra therapy Recommendations: 1. ASA 81 mg daily, start Plavix 75 mg daily. Continue Lovenox until tomorrow 2. Lipitor 40 mg qhs 3. Continue Lopressor 12.5 mg bid 4. Discussed management options considering advanced metastatic choriocarcinoma. Med Rx vs cardiac cath +/- PCI. She wants to discuss with her prior to making a decision. Conservative measures may be more reasonable given poor prognosis. Will readdress tomorrow am Remainder per other MDs Consultation Date/Type/Reason Admit Date/Time 04/07/17 Date of Consultation: Apr 08, 2017 Type of Consultation: Cardiology Reason for Consultation Elevated troponin Referring Provider: HARVINDER ESCOBAR Hx of Present Illness 46-year-old female with a history of 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 She is followed by Oncology as an OP. Last chemo was 5 weeks ago and she is contemplating discontinuing treatment. On 04/06/17 at 10:00 pm, while at rest she developed acute onset of mid-sternal chest pressure with radiation to the jaw and posterior neck. Her face felt warm as well. The symptoms lasted 15 minutes and spontaneously subsided. On 04/07/17 at 0800, the constellation of symptoms returned with a 8/10 severity. She then presented to the [facility] ED. Here. troponins have been elevated and are now down-trending. EKG showed no acute changes. Her cardiac symptoms have completely resolved. She now denies chest pain, shortness of breath, PND, orthopnea, LE edema, presyncope, syncope or palpitations. No prior CV history or known CV risk factors. She also complains of severe right knee pain. Full 14 point ROS is negative unless otherwise stated. Past Medical History * Metastatic choriocarcinoma * GERD * Seizure episode from brain mets Past Surgical History * Hx of craniectomy in the past "to relieve pressure from mets" * Cholecystectomy * s/p right salpingo-oopherectomy Social History Alcohol Use: none Smoking Status: Never smoker Drug Use: none Other Social History Exam/Review of Systems Vital Signs Vitals Vital Signs Date Time Temp Pulse Resp B/P Pulse Ox O2 Delivery O2 Flow Rate FiO2 04/08/17 08:26 62 04/08/17 07:49 98.1 18 110/57 98 04/07/17 13:52 Room Air Intake and Output 04/07/17 04/07/17 04/08/17 15:00 23:00 07:00 Intake Total 250 ml Balance 250 ml Exam Constitutional: alert, oriented Psych: nl mood/affect, no complaints Head: other (old craniotomy scar noted) Eyes: EOMI, nl conjunctiva, nl lids ENMT: nl external ears & nose, nl lips & teeth, nl nasal mucosa & septum Neck: non-tender, supple, No bruits, No jvd Respiratory: clear to auscultation, normal air movement, No crackles/rales, No wheezing Cardiovascular: nl pulses, regular rate and rhythm, No S3, No S4, No diastolic murmur, No edema, No jugular venous distention ( JVD), No murmurs/extra sounds, No systolic murmur Gastrointestinal: bowel sounds, non-tender, soft Extremities: normal pulses, No calf tenderness, No clubbing, No cyanosis, No edema Neurological: nl mental status, nl speech Skin: nl turgor, rash or lesions Results Result Diagram: 04/08/1772104/08/17721 Results 24 hrs Laboratory Tests Test 04/07/17 11:50 04/07/17 15:30 04/07/17 21:20 04/08/17 02:55 Lactic Acid Level 0.9 0.8 Creatine Kinase 228 H 211 H 151 Creatine Kinase Index 5.6 4.0 3.5 Creatinine Kinase MB (Mass) 12.80 H 8.50 H 5.25 H Troponin I 4.170 *H 3.120 *H 2.050 *H Test 04/08/17 07:22 White Blood Count 6.9 Red Blood Count 3.15 L Hemoglobin 8.6 L Hematocrit 27.6 L Mean Corpuscular Volume 87.6 Mean Corpuscular Hemoglobin 27.3 L Mean Corpuscular Hemoglobin Concent 31.2 L Red Cell Distribution Width 17.4 H Platelet Count 238 Mean Platelet Volume 10.9 H Neutrophils % 61.3 Lymphocytes % 22.7 Monocytes % 9.0 Eosinophils % 5.1 Basophils % 0.7 Nucleated Red Blood Cells % 0.0 Neutrophils # 4.2 Lymphocytes # 1.6 Monocytes # 0.6 Eosinophils # 0.4 Basophils # 0.1 Nucleated Red Blood Cells # 0.0 Prothrombin Time 14.3 Prothrombin Time Ratio 1.1 INR International Normalized Ratio 1.09 Activated Partial Thromboplast Time 43.7 H Sodium Level 137 Potassium Level 4.1 Chloride Level 101 Carbon Dioxide Level 29 Anion Gap 11 Blood Urea Nitrogen 15 Creatinine 0.82 Glucose Level 85 Hemoglobin A1c 5.0 Calcium Level 9.1 Phosphorus Level 4.0 Magnesium Level 1.8 Triglycerides Level 147 Cholesterol Level 131 LDL Cholesterol, Calculated 68 HDL Cholesterol 34 Cholesterol/HDL Ratio 3.8 Thyroid Stimulating Hormone (TSH) 0.632 Imaging Free Text/Dictation BLE venous ultrasound: no DVT CT right knee: Abnormal sclerotic trabeculae in the medullary cavity of the distal femur at the fracture site is suggestive of infiltrative process. Periosteal reaction is seen in the anterior tissue. Findings highly suggestive of pathologic fracture. CT brain: atrophic changes CXR: unremarkable CTPA: 1. No evidence of acute pulmonary emboli. No evidence of aortic aneurysm or dissection. Cardiomegaly. 2. Numerous pulmonary nodules scattered throughout both lungs, most likely consistent with malignancy/metastatic disease. 3. No focal air space disease/consolidation. No pleural effusions. 4. Status post cholecystectomy. Mild intrahepatic and extrahepatic biliary dilatation. Medications Medications Current Medications Enoxaparin Sodium (Lovenox) 105 mg Q12H SC Last administered on 04/08/17 05:09 ; Admin Dose 105 MG; Start 04/07/17 at 17:00 Aspirin (Halfprin) 81 mg DAILY PO Last administered on 04/08/17 08:11; Admin Dose 81 MG; Start 04/08/17 at 09:00 Ondansetron HCl (Zofran Inj) 4 mg Q6H PRN IV NAUSEA AND/OR VOMITING; Start 04/07/17 at 15:30 Levetiracetam (Keppra Liquid) 500 mg BID PO Last administered on 04/08/17 08: 10; Admin Dose 500 MG; Start 04/07/17 at 21:00 Pantoprazole (Protonix Tab) 40 mg DAILY@06 PO Last administered on 04/08/17 05 :55; Admin Dose 40 MG; Start 04/08/17 at 06:00 Metoprolol Tartrate (Lopressor) 12.5 mg BID PO Last administered on 04/08/17 08:12; Admin Dose 12.5 MG; Start 04/07/17 at 21:00 Morphine Sulfate (morphine) 4 mg Q4H PRN IV pain; Start 04/07/17 at 23:30 Hydromorphone HCl (Dilaudid) 1 mg Q3H PRN IV pain Last administered on 08:16; Admin Dose 1 MG; Start 04/07/17 at 22:00 Acetaminophen/ Hydrocodone Bitart ([place] (10/325)) 1 tab Q4H PRN PO PAIN; Start 04/07/17 at 22:00 Morphine Sulfate (Ms Contin (Er)) 15 mg BID PO Last administered on 04/08/17 08:11; Admin Dose 15 MG; Start 04/07/17 at 22:00 Procedures Procedures Echo 04/08/17: 1. Normal left ventricular systolic function. Ejection fraction is visually estimated at 55-60 %. 2. Mild left ventricular hypertrophy with Stage I diastolic dysfunction. 3. Normal valvular structure and function. 4. Borderline PHTN. MIREILLE CHAND MD Apr 08, 2017 11:28
--- NOTE | 2017-04-08 11:43 | RADRPT ---
Echocardiogram Report Patient Name: IVONNE BRASWELL Gender: Female Date: 1970 Study Date: 08-Apr-2017 General Inspector: VEE Location: E Ref. Physician: HARVINDER ESCOBAR Quality: Adequate Procedures: Transthoracic echocardiogram with complete 2D, M-Mode, and Doppler examination. Indications: NSTEMI. 2D/M Mode Doppler Measurement Value Normal Ranges Measurement Value Normal Ranges AoR Diam MM 3.1 cm AV Peak Ajith 1.6 m/sec ACS MM 2.0 cm AV Peak PG 10.0 mmHg LVIDd 2D 4.0 3.5 - 5.6 cm LVOT Peak Ajith 0.9 m/sec LVIDs 2D 2.6 2.1 - 4.1 cm LVOT Peak PG 2.9 mmHg LVPWd 2D 1.0 0.6 - 1.1 cm MV E Peak Ajith 0.7 m/sec IVSd 2D 1.0 0.6 - 1.1 cm MV A Peak Ajith 0.8 m/sec EDV 2D 71.8 cm3 MV E/A 0.8 ESV 2D 16.6 cm3 MV Decel Time 227 msec LA Dimen 2D 4.2 2.3 - 4.0 cm MV Decel [place] 3 MV E/A 0.8 TR Peak Ajith 3.0 m/sec TR Peak PG 35.4 mmHg PV Peak Ajith 1.0 m/sec PV Peak PG 4.0 mmHg RVSP 38.4 mmHg Findings Left Ventricle: Normal left ventricular systolic function. Normal left ventricular cavity size. Mild concentric left ventricular hypertrophy. Ejection fraction is visually estimated at 5560 %. Tissue Doppler/Mitral Doppler indices are consistent with impaired relaxation (Stage I diastolic dysfunction). E/E`=8. Right Ventricle: Normal right ventricular size. Normal right ventricular systolic function. Left Atrium: There is mild to moderate enlargement of left atrium. Right Atrium: The right atrium is normal in size. Atrial Septum: Normal atrial septum. Aneurysmal atrial septum. Mitral Valve: Normal appearance and function of the mitral valve with trace physiologic regurgitation. Aortic Valve: No significant aortic stenosis or insufficiency. Normal trileaflet aortic valve structure. Tricuspid Valve: Normal appearance of the tricuspid valve. Estimated peak PA systolic pressure 38 mmHg. There is mild tricuspid regurgitation. Pulmonic Valve: Normal pulmonic valve appearance. There is trace pulmonic regurgitation. Pericardium: Normal pericardium with no significant pericardial effusion. No pleural effusion noted. Aorta: Normal aortic root. IVC: Normal size and normal respiratory collapse consistent with normal right atrial pressure. Pulmonary Artery: Normal pulmonary artery size. Conclusions 1.Normal left ventricular systolic function. Ejection fraction is visually estimated at 55-60 %. 2.Mild left ventricular hypertrophy with Stage I diastolic dysfunction. 3.Normal valvular structure and function. 4.Borderline PHTN. Electronically Signed By: Bhupendra Hsieh 08-Apr-2017 11:41:44 -0800 Patient Name: IVONNE BRASWELL Study Date: 08-Apr-[id number]
[2017-04-08] MEDS: CLOPIDOGREL 75 MG TAB PO SCH (12:46)
--- NOTE | 2017-04-08 14:47 | PN ---
Date/Time of Note Date/Time of Note DATE: 04/08/17 TIME: 14:43 Assessment/Plan VTE Prophylaxis VTE Prophylaxis Intervention: SCD's Lines/Catheters IV Catheter Type (from Nrs): Saline Lock Assessment/Plan Chief Complaint/Hosp Course Assessment and plan 1. Chest pain secondary to non ST elevated myocardial infarction. Hook Tender following. Continue the recommendations. Patient at this time is considering possible PCI. Will follow up with decision. Continue on therapeutic Lovenox for now 2. Right knee pathologic fracture. Continue with analgesics. 3. 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 Continue Keppra 4. Metastatic cholangiocarcinoma. Chemotherapy on hold due to patient's decision. Patient for outpatient follow-up for this issue. Disposition and plan: Continue monitoring on telemetry. Follow-up with patient decision for possible PCI. Will follow up. Discussed plan of care with Dr. Mera Problems: Subjective 24 Hr Interval Summary Free Text/Dictation Seen sitting in chair. No reports of chest pain at this time. Exam/Review of Systems Vital Signs Vitals Vital Signs Date Time Temp Pulse Resp B/P Pulse Ox O2 Delivery O2 Flow Rate FiO2 04/08/17 12:16 64 04/08/17 11:31 97.8 18 120/59 98 04/07/17 13:52 Room Air Intake and Output 04/07/17 04/07/17 04/08/17 14:59 22:59 06:59 Intake Total 250 ml Balance 250 ml Exam Constitutional: alert, obese, oriented Head: atraumatic, normocephalic Neck: non-tender, supple Respiratory: clear to auscultation Cardiovascular: regular rate and rhythm Gastrointestinal: non-tender, soft Musculoskeletal: nl extremities to inspection Extremities: normal pulses Neurological: CLOCK MAKER II-XII intact, nl mental status, nl speech Skin: nl turgor Results Result Diagram: 04/08/17 0722 04/08/17 0722 Results 24 hrs Laboratory Tests Test 04/07/17 15:30 04/07/17 21:20 04/08/17 02:55 04/08/17 07:22 Lactic Acid Level 0.8 Creatine Kinase 228 H 211 H 151 Creatine Kinase Index 5.6 4.0 3.5 Creatinine Kinase MB (Mass) 12.80 H 8.50 H 5.25 H Troponin I 4.170 *H 3.120 *H 2.050 *H White Blood Count 6.9 Red Blood Count 3.15 L Hemoglobin 8.6 L Hematocrit 27.6 L Mean Corpuscular Volume 87.6 Mean Corpuscular Hemoglobin 27.3 L Mean Corpuscular Hemoglobin Concent 31.2 L Red Cell Distribution Width 17.4 H Platelet Count 238 Mean Platelet Volume 10.9 H Neutrophils % 61.3 Lymphocytes % 22.7 Monocytes % 9.0 Eosinophils % 5.1 Basophils % 0.7 Nucleated Red Blood Cells % 0.0 Neutrophils # 4.2 Lymphocytes # 1.6 Monocytes # 0.6 Eosinophils # 0.4 Basophils # 0.1 Nucleated Red Blood Cells # 0.0 Prothrombin Time 14.3 Prothrombin Time Ratio 1.1 INR International Normalized Ratio 1.09 Activated Partial Thromboplast Time 43.7 H Sodium Level 137 Potassium Level 4.1 Chloride Level 101 Carbon Dioxide Level 29 Anion Gap 11 Blood Urea Nitrogen 15 Creatinine 0.82 Glucose Level 85 Hemoglobin A1c 5.0 Calcium Level 9.1 Phosphorus Level 4.0 Magnesium Level 1.8 Triglycerides Level 147 Cholesterol Level 131 LDL Cholesterol, Calculated 68 HDL Cholesterol 34 Cholesterol/HDL Ratio 3.8 Thyroid Stimulating Hormone (TSH) 0.632 Medications Medications Current Medications Enoxaparin Sodium (Lovenox) 105 mg Q12H SC Last administered on 04/08/17 05:09 ; Admin Dose 105 MG; Start 04/07/17 at 17:00 Aspirin (Halfprin) 81 mg DAILY PO Last administered on 04/08/17 08:11; Admin Dose 81 MG; Start 04/08/17 at 09:00 Ondansetron HCl (Zofran Inj) 4 mg Q6H PRN IV NAUSEA AND/OR VOMITING; Start 04/07/17 at 15:30 Levetiracetam (Keppra Liquid) 500 mg BID PO Last administered on 04/08/17 08: 10; Admin Dose 500 MG; Start 04/07/17 at 21:00 Pantoprazole (Protonix Tab) 40 mg DAILY@06 PO Last administered on 04/08/17 05 :55; Admin Dose 40 MG; Start 04/08/17 at 06:00 Metoprolol Tartrate (Lopressor) 12.5 mg BID PO Last administered on 04/08/17 08:12; Admin Dose 12.5 MG; Start 04/07/17 at 21:00 Morphine Sulfate (morphine) 4 mg Q4H PRN IV pain; Start 04/07/17 at 23:30 Hydromorphone HCl (Dilaudid) 1 mg Q3H PRN IV pain Last administered on 12:46; Admin Dose 1 MG; Start 04/07/17 at 22:00 Acetaminophen/ Hydrocodone Bitart ([place] (10/325)) 1 tab Q4H PRN PO PAIN; Start 04/07/17 at 22:00 Morphine Sulfate (Ms Contin (Er)) 15 mg BID PO Last administered on 04/08/17 08:11; Admin Dose 15 MG; Start 04/07/17 at 22:00 Atorvastatin Calcium (Lipitor) 40 mg HS PO ; Start 04/08/17 at 21:00 Clopidogrel Bisulfate (plaVIX) 75 mg DAILY PO Last administered on 04/08/17 12 :46; Admin Dose 75 MG; Start 04/08/17 at 13:00 BERENICE COE Apr 08, 2017 14:47
[2017-04-08] MEDS: ATORVASTATIN 40 MG TAB PO SCH (21:33)
[2017-04-09] VITALS (12 sets, daily range): BP systolic 96–125; BP diastolic 57–71; PULSE 62–94; RESP 15–19
[2017-04-09] MEDS: PANTOPRAZOLE (EC) 40 MG TAB PO SCH (05:35)
[2017-04-09] MEDS: HYDROmorphONE 1 MG/ML SYG IV PRN ×5 (05:35→21:15)
[2017-04-09] MEDS: ENOXAPARIN 100 MG/ML SYG SC SCH (05:49)
[2017-04-09 06:12] LABS: BASOPHIL # 0.1 10^3/ul (0.0-0.1); BASOPHILS % 0.9 % (0.0-2.0); EOSINOPHILS # 0.4 10^3/ul (0.0-0.5); EOSINOPHILS % 5.4 % (0.0-7.0); HEMOGLOBIN 8.7 g/dl (12.0-16.0); LYMPHOCYTES # 1.7 10^3/ul (0.8-2.9); LYMPHOCYTES % 25.9 % (15.0-51.0); MEAN CORPUSCULAR HEMOGLOBIN 27.1 pg (29.0-33.0); MEAN CORPUSCULAR HGB CONC 31.1 g/dl (32.0-37.0); MEAN CORPUSCULAR VOLUME 87.2 fl (82.0-101.0); MEAN PLATELET VOLUME 10.5 fl (7.4-10.4); MONOCYTE # 0.7 10^3/ul (0.3-0.9); MONOCYTES % 10.5 % (0.0-11.0); NEUTROPHIL # 3.8 10^3/ul (1.6-7.5); NUCLEATED RED BLOOD CELLS% 0.3 /100WBC (0.0-0.0); PLATELET COUNT 225 10^3/UL (140-415); RED BLOOD COUNT 3.21 10^6/ul (4.20-5.40); RED CELL DISTRIBUTION WIDTH 17.6 % (11.5-14.5); WHITE BLOOD COUNT 6.7 10^3/ul (4.8-10.8)
[2017-04-09 06:48] LABS: CALCIUM 9.1 mg/dl (8.4-10.2); CREATININE 0.77 mg/dl (0.44-1.00); POTASSIUM 3.9 mmol/L (3.5-5.1)
--- NOTE | 2017-04-09 07:38 | CONS ---
Date/Time of Note Date/Time of Note DATE: 04/09/17 TIME: 07:36 Consult Date/Type/Reason Admit Date/Time Apr 07, 2017 at 13:46 Initial Consult Date 04/08/17 Type of Consultation: Cardiology Ordering Provider: HARVINDER ESCOBAR Subjective Had short-lived jaw pain yest. Now resolved. Denies CP/SOB Objective Vital Signs Date Time Temp Pulse Resp B/P Pulse Ox O2 Delivery O2 Flow Rate FiO2 04/09/17 04:09 62 04/09/17 04:06 98.2 19 118/60 98 04/07/17 13:52 Room Air Intake and Output 04/08/17 04/08/17 04/09/17 15:00 23:00 07:00 Intake Total 400 ml Balance 400 ml Exam Constitutional: alert, oriented Neck: non-tender, supple, no bruits, No jvd Respiratory: clear to auscultation, normal air movement, no crackles/rales, No wheezing Cardiovascular: nl pulses, regular rate and rhythm, N S3, No S4, No diastolic murmur, No edema, No jugular venous distention (JVD), No murmurs/extra sounds Gastrointestinal: bowel sounds, non-tender, soft Extremities: normal pulses, no calf tenderness, No clubbing, No cyanosis, No edema Skin: nl turgor, rash or lesions Results/Medications Result Diagram: 04/09/17 0550 04/09/17 0550 Results 24 hrs Laboratory Tests Test 04/09/17 05:50 White Blood Count 6.7 Red Blood Count 3.21 L Hemoglobin 8.7 L Hematocrit 28.0 L Mean Corpuscular Volume 87.2 Mean Corpuscular Hemoglobin 27.1 L Mean Corpuscular Hemoglobin Concent 31.1 L Red Cell Distribution Width 17.6 H Platelet Count 225 Mean Platelet Volume 10.5 H Neutrophils % 56.0 Lymphocytes % 25.9 Monocytes % 10.5 Eosinophils % 5.4 Basophils % 0.9 Nucleated Red Blood Cells % 0.3 H Neutrophils # 3.8 Lymphocytes # 1.7 Monocytes # 0.7 Eosinophils # 0.4 Basophils # 0.1 Nucleated Red Blood Cells # 0.0 Sodium Level 140 Potassium Level 3.9 Chloride Level 104 Carbon Dioxide Level 29 Anion Gap 11 Blood Urea Nitrogen 13 Creatinine 0.77 Glucose Level 89 Calcium Level 9.1 Medications Current Medications Enoxaparin Sodium (Lovenox) 105 mg Q12H SC Last administered on 04/09/17 05: 49; Admin Dose 105 MG; Start 04/07/17 at 17:00 Aspirin (Halfprin) 81 mg DAILY PO Last administered on 04/08/17 08:11; Admin Dose 81 MG; Start 04/08/17 at 09:00 Ondansetron HCl (Zofran Inj) 4 mg Q6H PRN IV NAUSEA AND/OR VOMITING; Start 04/07/17 at 15:30 Levetiracetam (Keppra Liquid) 500 mg BID PO Last administered on 04/08/17 21: 33; Admin Dose 500 MG; Start 04/07/17 at 21:00 Pantoprazole (Protonix Tab) 40 mg DAILY@06 PO Last administered on 04/09/17 05:35; Admin Dose 40 MG; Start 04/08/17 at 06:00 Metoprolol Tartrate (Lopressor) 12.5 mg BID PO Last administered on 04/08/17 21:35; Admin Dose 12.5 MG; Start 04/07/17 at 21:00 Morphine Sulfate (morphine) 4 mg Q4H PRN IV pain; Start 04/07/17 at 23:30 Hydromorphone HCl (Dilaudid) 1 mg Q3H PRN IV pain Last administered on 05:35; Admin Dose 1 MG; Start 04/07/17 at 22:00 Acetaminophen/ Hydrocodone Bitart ([place] (10/325)) 1 tab Q4H PRN PO PAIN; Start 04/07/17 at 22:00 Morphine Sulfate (Ms Contin (Er)) 15 mg BID PO Last administered on 04/08/17 21:19; Admin Dose 15 MG; Start 04/07/17 at 22:00 Atorvastatin Calcium (Lipitor) 40 mg HS PO Last administered on 04/08/17 21:33 ; Admin Dose 40 MG; Start 04/08/17 at 21:00 Clopidogrel Bisulfate (plaVIX) 75 mg DAILY PO Last administered on 04/08/17 12 :46; Admin Dose 75 MG; Start 04/08/17 at 13:00 Assessment/Plan Chief Complaint/Hosp Course 46-year-old female with a history of 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 She is followed by Oncology as an OP. Last chemo was 5 weeks ago and she is contemplating discontinuing treatment. On 04/06/17 at 10:00 pm, while at rest she developed acute onset of mid-sternal chest pressure with radiation to the jaw and posterior neck. Her face felt warm as well. The symptoms lasted 15 minutes and spontaneously subsided. On 04/07/17 at 0800, the constellation of symptoms returned with a 8/10 severity. She then presented to the [facility] ED. Here. troponins have been elevated and are now down-trending. EKG showed no acute changes. Her cardiac symptoms have completely resolved. She now denies chest pain, shortness of breath, PND, orthopnea, LE edema, presyncope, syncope or palpitations. No prior CV history or known CV risk factors. She also complains of severe right knee pain. Problems: Additional Assessment/Plan Assessment: 1. NSTEMI 2. Metastatic choriocarcinoma 3. Right knee pathologic fracture 4. Seizures secondary to brain metastases stable on Keppra therapy Recommendations: 1. ASA 81 mg daily, Plavix 75 mg daily. Discontinue Lovenox after this am dose 2. Lipitor 40 mg qhs 3. Continue Lopressor 12.5 mg bid 4. Discussed management options with patient/. Complex situation considering advanced metastatic choriocarcinoma. After discussing indications/ risks/benefits/alternatives she wishes to proceed. Cardiac cath scheduled for tomorrow at 12:[address] Evans. 5. Patient requesting a second opinion from Oncology 6. Consider Ortho eval of right knee pathologic fracture 7. NPO post light breakfast, gently hydrate overnight MIREILLE CHAND MD Apr 09, 2017 07:38
[2017-04-09] MEDS: LEVETIRACETAM (100 MG/ML) 5ML CUP PO SCH ×2 (08:14→21:07)
[2017-04-09] MEDS: CLOPIDOGREL 75 MG TAB PO SCH (08:15)
[2017-04-09] MEDS: morphine (ER) 15 MG TAB PO SCH ×2 (08:15→21:14)
[2017-04-09] MEDS: ASPIRIN (EC) 81 MG TAB PO SCH (08:15)
[2017-04-09] MEDS: METOPROLOL 25 MG TAB PO SCH ×2 (08:40→21:07)
--- NOTE | 2017-04-09 12:30 | PN ---
Date/Time of Note Date/Time of Note DATE: 04/09/17 TIME: 12:29 Assessment/Plan VTE Prophylaxis VTE Prophylaxis Intervention: LMWH Lines/Catheters [facility] Saline Lock Assessment/Plan Chief Complaint/Hosp Course Assessment and plan 1. Chest pain secondary to non ST elevated myocardial infarction. Cat Scanner Operator following. Continue the recommendations. patient agreeable to angiogram. Continue on therapeutic Lovenox for now 2. Right knee pathologic fracture. Continue with analgesics. 3. 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 Continue Keppra 4. Metastatic cholangiocarcinoma. Chemotherapy on hold due to patient's decision. Patient for outpatient follow-up for this issue. Disposition and plan: Continue monitoring on telemetry. plan for angiogram. will f/u Discussed plan of care with Dr. Mera Problems: Subjective 24 Hr Interval Summary Free Text/Dictation no s/s of distress. comfortable at present. Exam/Review of Systems Vital Signs Vitals Vital Signs Date Time Temp Pulse Resp B/P Pulse Ox O2 Delivery O2 Flow Rate FiO2 04/09/17 12:22 63 04/09/17 11:17 98.2 17 112/58 95 04/07/17 13:52 Room Air Intake and Output 04/08/17 04/08/17 04/09/17 15:00 23:00 07:00 Intake Total 400 ml Balance 400 ml Exam Constitutional: alert, obese, oriented Head: atraumatic, normocephalic Neck: non-tender, supple Respiratory: clear to auscultation Cardiovascular: regular rate and rhythm Gastrointestinal: non-tender, soft Musculoskeletal: nl extremities to inspection Extremities: normal pulses Neurological: PAIRER II-XII intact, nl mental status, nl speech Skin: nl turgor Results Result Diagram: 04/09/17 0550 04/09/17 0550 Results 24 hrs Laboratory Tests Test 04/09/17 05:50 White Blood Count 6.7 Red Blood Count 3.21 L Hemoglobin 8.7 L Hematocrit 28.0 L Mean Corpuscular Volume 87.2 Mean Corpuscular Hemoglobin 27.1 L Mean Corpuscular Hemoglobin Concent 31.1 L Red Cell Distribution Width 17.6 H Platelet Count 225 Mean Platelet Volume 10.5 H Neutrophils % 56.0 Lymphocytes % 25.9 Monocytes % 10.5 Eosinophils % 5.4 Basophils % 0.9 Nucleated Red Blood Cells % 0.3 H Neutrophils # 3.8 Lymphocytes # 1.7 Monocytes # 0.7 Eosinophils # 0.4 Basophils # 0.1 Nucleated Red Blood Cells # 0.0 Sodium Level 140 Potassium Level 3.9 Chloride Level 104 Carbon Dioxide Level 29 Anion Gap 11 Blood Urea Nitrogen 13 Creatinine 0.77 Glucose Level 89 Calcium Level 9.1 Medications Medications Current Medications Enoxaparin Sodium (Lovenox) 105 mg Q12H SC Last administered on 04/09/17 05: 49; Admin Dose 105 MG; Start 04/07/17 at 17:00; Stop 04/09/17 at 13:00 Aspirin (Halfprin) 81 mg DAILY PO Last administered on 04/09/17 08:15; Admin Dose 81 MG; Start 04/08/17 at 09:00 Ondansetron HCl (Zofran Inj) 4 mg Q6H PRN IV NAUSEA AND/OR VOMITING; Start 04/07/17 at 15:30 Levetiracetam (Keppra Liquid) 500 mg BID PO Last administered on 04/09/17 08: 14; Admin Dose 500 MG; Start 04/07/17 at 21:00 Pantoprazole (Protonix Tab) 40 mg DAILY@06 PO Last administered on 04/09/17 05:35; Admin Dose 40 MG; Start 04/08/17 at 06:00 Metoprolol Tartrate (Lopressor) 12.5 mg BID PO Last administered on 04/08/17 21:35; Admin Dose 12.5 MG; Start 04/07/17 at 21:00 Morphine Sulfate (morphine) 4 mg Q4H PRN IV pain; Start 04/07/17 at 23:30 Hydromorphone HCl (Dilaudid) 1 mg Q3H PRN IV pain Last administered on 08:14; Admin Dose 1 MG; Start 04/07/17 at 22:00 Acetaminophen/ Hydrocodone Bitart ([place] (10/325)) 1 tab Q4H PRN PO PAIN; Start 04/07/17 at 22:00 Morphine Sulfate (Ms Contin (Er)) 15 mg BID PO Last administered on 04/09/17 08:15; Admin Dose 15 MG; Start 04/07/17 at 22:00 Atorvastatin Calcium (Lipitor) 40 mg HS PO Last administered on 04/08/17 21:33 ; Admin Dose 40 MG; Start 04/08/17 at 21:00 Clopidogrel Bisulfate 75 mg 75 mg DAILY PO Last administered on 04/09/17 08: 15; Admin Dose 75 MG; Start 04/08/17 at 13:00 Sodium Chloride (1/2 NS) 1,000 ml @ 75 mls/hr [id number] IV ; Start 04/10/17 at 01:00; Stop 04/10/17 at 12:59 BERENICE COE Apr 09, 2017 12:30
[2017-04-09] MEDS: ATORVASTATIN 40 MG TAB PO SCH (21:07)
[2017-04-10] VITALS (33 sets, daily range): BP systolic 84–129; BP diastolic 50–63; PULSE 60–95; RESP 13–20
[2017-04-10] MEDS ORDERED: SOD CHLORIDE 0.45% 1,000 ML IV SCH (01:00)
[2017-04-10] MEDS: HYDROmorphONE 1 MG/ML SYG IV PRN ×4 (01:37→15:27)
[2017-04-10] MEDS: PANTOPRAZOLE (EC) 40 MG TAB PO SCH (05:27)
[2017-04-10 05:56] LABS: BASOPHILS % 0.6 % (0.0-2.0); EOSINOPHILS # 0.3 10^3/ul (0.0-0.5); EOSINOPHILS % 4.9 % (0.0-7.0); HEMATOCRIT 27.2 % (37.0-47.0); HEMOGLOBIN 8.5 g/dl (12.0-16.0); LYMPHOCYTES # 1.6 10^3/ul (0.8-2.9); LYMPHOCYTES % 22.7 % (15.0-51.0); MEAN CORPUSCULAR HEMOGLOBIN 27.5 pg (29.0-33.0); MEAN CORPUSCULAR HGB CONC 31.3 g/dl (32.0-37.0); MEAN PLATELET VOLUME 10.4 fl (7.4-10.4); MONOCYTE # 0.7 10^3/ul (0.3-0.9); MONOCYTES % 9.8 % (0.0-11.0); NEUTROPHIL # 4.2 10^3/ul (1.6-7.5); NEUTROPHILS % 60.6 % (39.0-77.0); PLATELET COUNT 225 10^3/UL (140-415); RED BLOOD COUNT 3.09 10^6/ul (4.20-5.40); RED CELL DISTRIBUTION WIDTH 17.4 % (11.5-14.5); WHITE BLOOD COUNT 6.9 10^3/ul (4.8-10.8)
[2017-04-10 06:22] LABS: CREATININE 0.84 mg/dl (0.44-1.00); POTASSIUM 4.2 mmol/L (3.5-5.1)
[2017-04-10] MEDS: CLOPIDOGREL 75 MG TAB PO SCH (07:51)
[2017-04-10] MEDS: LEVETIRACETAM (100 MG/ML) 5ML CUP PO SCH ×2 (08:53→21:47)
[2017-04-10] MEDS: ASPIRIN (EC) 81 MG TAB PO SCH (08:54)
[2017-04-10] MEDS: morphine (ER) 15 MG TAB PO SCH ×2 (08:54→22:53)
[2017-04-10] MEDS: METOPROLOL 25 MG TAB PO SCH (09:00)
[2017-04-10] MEDS ORDERED: HEPARIN 1000 UNITS/ML 10 ML INJ ONE (10:08)
[2017-04-10] MEDS ORDERED: VERAPAMIL 5 MG INJ ONE (10:08)
[2017-04-10] MEDS ORDERED: LIDOCAINE 1% (MDV) 20 ML INJ ONE (10:08)
[2017-04-10] MEDS ORDERED: IODIXANOL LOCM 100 ML BTL ONE (10:08)
[2017-04-10] MEDS ORDERED: NITROGLYCERIN (IC) 100 MCG/ML INJ ONE (10:08)
[2017-04-10] MEDS ORDERED: MIDAZOLAM 1 MG/ML 2 ML INJ ONE (10:25)
[2017-04-10] MEDS ORDERED: FENTAnyl 50 MCG/ML VIAL ONE (10:25)
--- NOTE | 2017-04-10 11:07 | OPR ---
Date/Time of Note Date/Time of Note DATE: 04/10/17 TIME: 11:00 Operative Report Preoperative Diagnosis NSTEMI Postoperative Diagnosis NSTEMI Surgeon see signature line Needle Maker none Anesthesia Type: moderate sedation Estimated Blood Loss: minimal Transfusion none Specimen none Grafts/Implants none Complications none Procedure Description Procedure Date: 04/10/2017 Spray Gun Repairer Helper/surgeon:Hay Evans MD. Procedures Performed: 1)Left heart catheterization with selective left and right coronary angiography. Pre-operative Diagnosis:NSTEMI Post-operative Diagnosis:NSTEMI Indications: 46 yo F with recurrent chest pain and NSTEMI (trop 5). Description of Procedure: After informed consent, the patient was brought to the cardiac catheterization lab. The procedure site was prepped and draped in usual manner. The patient was premedicated with versed 1.5mg and fentanyl 50 mcg. 2 mL lidocaine was injected into the right wrist. Next using the posterior wall technique, the 6/ 5 [place] sheath was inserted into the right radial artery. Next using the JL3.5 and JR4, selective angiography of the right and semiselective of the left ( radial spasm and adequate visualization) coronary arteries were obtained. Next all equipment was removed and hemostasis was obtained by TR band. Findings: Anatomy/Hemodynamics: Left main:normal LAD:normal Diagonal:normal Circumflex:normal Obtuse marginal:normal RCA:normal PDA:normal PLV:normal LV angiography:not done AV not crossed Estimated blood loss<10 mL. Specimen: none Grafts/implants: none Complications: none Assessment: NSTEMI with normal coronary arteries. ?Spasm Plan: -medical management HAY EVANS Apr 10, 2017 11:07
[2017-04-10] MEDS: morphine 4 MG/ML VIAL IV PRN ×2 (11:19→19:55)
--- NOTE | 2017-04-10 12:07 | PN ---
Date/Time of Note Date/Time of Note DATE: 04/10/17 TIME: 11:58 Assessment/Plan VTE Prophylaxis VTE Prophylaxis Intervention: SCD's Lines/Catheters IV Catheter Type (from Nrsg): Peripheral IV Assessment/Plan Chief Complaint/Hosp Course Assessment and plan 1. Chest pain secondary to non ST elevated myocardial infarction. Traveling Buyer following. Continue the recommendations. plan for angiogram. Continue on therapeutic Lovenox for now 2. Right knee pathologic fracture. Continue with analgesics. 3. 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 Continue Keppra 4. Metastatic cholangiocarcinoma. Chemotherapy on hold due to patient's decision. Patient for outpatient follow-up for this issue. Disposition and plan: Continue monitoring on telemetry. patient for heart cath today. will follow post-op. follow up with billing customer service representative oniel. Discussed plan of care with Dr. Page Problems: Subjective 24 Hr Interval Summary Free Text/Dictation patient for heart cath Exam/Review of Systems Vital Signs Vitals Vital Signs Date Time Temp Pulse Resp B/P Pulse Ox O2 Delivery O2 Flow Rate FiO2 04/10/17 11:37 64 15 92/55 97 Room Air 04/10/17 11:08 97.8 Intake and Output 04/09/17 04/09/17 04/10/17 14:59 22:59 06:59 Intake Total 450 ml 725 ml Balance 450 ml 725 ml Exam patient for heart cath Results Result Diagram: 04/10/17 0537 04/10/17 0537 Results 24 hrs Laboratory Tests Test 04/10/17 05:37 White Blood Count 6.9 Red Blood Count 3.09 L Hemoglobin 8.5 L Hematocrit 27.2 L Mean Corpuscular Volume 88.0 Mean Corpuscular Hemoglobin 27.5 L Mean Corpuscular Hemoglobin Concent 31.3 L Red Cell Distribution Width 17.4 H Platelet Count 225 Mean Platelet Volume 10.4 Neutrophils % 60.6 Lymphocytes % 22.7 Monocytes % 9.8 Eosinophils % 4.9 Basophils % 0.6 Nucleated Red Blood Cells % 0.0 Neutrophils # 4.2 Lymphocytes # 1.6 Monocytes # 0.7 Eosinophils # 0.3 Basophils # 0.0 Nucleated Red Blood Cells # 0.0 Sodium Level 138 Potassium Level 4.2 Chloride Level 102 Carbon Dioxide Level 29 Anion Gap 11 Blood Urea Nitrogen 16 Creatinine 0.84 Glucose Level 85 Calcium Level 9.0 Medications Medications Current Medications Aspirin (Halfprin) 81 mg DAILY PO Last administered on 04/10/17 08:54; Admin Dose 81 MG; Start 04/08/17 at 09:00 Ondansetron HCl (Zofran Inj) 4 mg Q6H PRN IV NAUSEA AND/OR VOMITING; Start 04/07/17 at 15:30 Levetiracetam (Keppra Liquid) 500 mg BID PO Last administered on 04/10/17 08: 53; Admin Dose 500 MG; Start 04/07/17 at 21:00 Pantoprazole (Protonix Tab) 40 mg DAILY@06 PO Last administered on 04/10/17 05:27; Admin Dose 40 MG; Start 04/08/17 at 06:00 Metoprolol Tartrate (Lopressor) 12.5 mg BID PO Last administered on 04/09/17 21:07; Admin Dose 12.5 MG; Start 04/07/17 at 21:00 Morphine Sulfate (morphine) 4 mg Q4H PRN IV pain Last administered on 11:19; Admin Dose 4 MG; Start 04/07/17 at 23:30 Hydromorphone HCl (Dilaudid) 1 mg Q3H PRN IV pain Last administered on 08:55; Admin Dose 1 MG; Start 04/07/17 at 22:00 Acetaminophen/ Hydrocodone Bitart ([place] (10/325)) 1 tab Q4H PRN PO PAIN Last administered on 04/10/17 03:45; Admin Dose 1 TAB; Start 04/07/17 at 22:00 Morphine Sulfate (Ms Contin (Er)) 15 mg BID PO Last administered on 04/10/17 08:54; Admin Dose 15 MG; Start 04/07/17 at 22:00 Atorvastatin Calcium (Lipitor) 40 mg HS PO Last administered on 04/09/17 21: 07; Admin Dose 40 MG; Start 04/08/17 at 21:00 Clopidogrel Bisulfate 75 mg 75 mg DAILY PO Last administered on 04/09/17 08: 15; Admin Dose 75 MG; Start 04/08/17 at 13:00 Sodium Chloride (1/2 NS) 1,000 ml @ 75 mls/hr [id number] IV Last administered on 04/10/17 01:40; Admin Dose 75 MLS/HR; Start 04/10/17 at 01:00; Stop at 12:59 BERENICE COE Apr 10, 2017 12:07
[2017-04-10] MEDS ORDERED: HYDROmorphONE 4 MG TAB PO PRN (18:00)
--- NOTE | 2017-04-10 18:37 | CONS ---
Date/Time of Note Date/Time of Note DATE: 04/10/17 TIME: 18:34 Assessment/Plan Assessment/Plan Chief Complaint/Hosp Course Assessment: 1. NSTEMI - possible coronary vasospasm, normal coronary arteries on angiography 2. Metastatic choriocarcinoma 3. Right knee pathologic fracture 4. Seizures secondary to brain metastases stable on Keppra therapy Recommendations: -continue aspirin 81mg daily -discontinue clopidogrel, atorvastatin, metoprolol -can consider calcium channel yoko for vasospasm, though currently with borderline blood pressures and cannot tolerate -no additional cardiac work up at this time Problems: Consultation Date/Type/Reason Admit Date/Time Apr 07, 2017 at 13:46 Initial Consult Date 04/08/17 Type of Consultation: Cardiology 24 HR Interval Summary Free Text/Dictation Coronary angiogram today showed normal coronary arteries. Doing well post-procedure. Right radial artery access site intact. Detailed Summary Additional Comments 14 point review of systems without changes. Exam/Review of Systems Vital Signs Vitals Vital Signs Date Time Temp Pulse Resp B/P Pulse Ox O2 Delivery O2 Flow Rate FiO2 04/10/17 16:00 71 04/10/17 15:14 98.6 19 114/56 96 04/10/17 13:12 Room Air Intake and Output 04/09/17 04/09/17 04/10/17 14:59 22:59 06:59 Intake Total 450 ml 725 ml Balance 450 ml 725 ml Exam Constitutional: alert, oriented Neck: non-tender, supple, no bruits, No jvd Respiratory: clear to auscultation, normal air movement, no crackles/rales, No wheezing Cardiovascular: nl pulses, regular rate and rhythm, N S3, No S4, No diastolic murmur, No edema, No jugular venous distention (JVD), No murmurs/extra sounds Gastrointestinal: bowel sounds, non-tender, soft Extremities: normal pulses, no calf tenderness, No clubbing, No cyanosis, No edema Skin: nl turgor, rash or lesions Results Result Diagram: 04/10/17 0537 04/10/17 0537 Results 24 hrs Laboratory Tests Test 04/10/17 05:37 White Blood Count 6.9 Red Blood Count 3.09 L Hemoglobin 8.5 L Hematocrit 27.2 L Mean Corpuscular Volume 88.0 Mean Corpuscular Hemoglobin 27.5 L Mean Corpuscular Hemoglobin Concent 31.3 L Red Cell Distribution Width 17.4 H Platelet Count 225 Mean Platelet Volume 10.4 Neutrophils % 60.6 Lymphocytes % 22.7 Monocytes % 9.8 Eosinophils % 4.9 Basophils % 0.6 Nucleated Red Blood Cells % 0.0 Neutrophils # 4.2 Lymphocytes # 1.6 Monocytes # 0.7 Eosinophils # 0.3 Basophils # 0.0 Nucleated Red Blood Cells # 0.0 Sodium Level 138 Potassium Level 4.2 Chloride Level 102 Carbon Dioxide Level 29 Anion Gap 11 Blood Urea Nitrogen 16 Creatinine 0.84 Glucose Level 85 Calcium Level 9.0 Medications Medications Current Medications Aspirin (Halfprin) 81 mg DAILY PO Last administered on 04/10/17 08:54; Admin Dose 81 MG; Start 04/08/17 at 09:00 Ondansetron HCl (Zofran Inj) 4 mg Q6H PRN IV NAUSEA AND/OR VOMITING; Start 04/07/17 at 15:30 Levetiracetam (Keppra Liquid) 500 mg BID PO Last administered on 04/10/17 08: 53; Admin Dose 500 MG; Start 04/07/17 at 21:00 Pantoprazole (Protonix Tab) 40 mg DAILY@06 PO Last administered on 04/10/17 05:27; Admin Dose 40 MG; Start 04/08/17 at 06:00 Metoprolol Tartrate (Lopressor) 12.5 mg BID PO Last administered on 04/09/17 21:07; Admin Dose 12.5 MG; Start 04/07/17 at 21:00 Morphine Sulfate (morphine) 4 mg Q4H PRN IV pain Last administered on 11:19; Admin Dose 4 MG; Start 04/07/17 at 23:30 Acetaminophen/ Hydrocodone Bitart ([place] (10/325)) 1 tab Q4H PRN PO PAIN Last administered on 04/10/17 03:45; Admin Dose 1 TAB; Start 04/07/17 at 22:00 Morphine Sulfate (Ms Contin (Er)) 15 mg BID PO Last administered on 04/10/17 08:54; Admin Dose 15 MG; Start 04/07/17 at 22:00 Atorvastatin Calcium (Lipitor) 40 mg HS PO Last administered on 04/09/17 21: 07; Admin Dose 40 MG; Start 04/08/17 at 21:00 Clopidogrel Bisulfate (plaVIX) 75 mg DAILY PO Last administered on 04/09/17t 08:15; Admin Dose 75 MG; Start 04/08/17 at 13:00 Hydromorphone HCl (Dilaudid) 4 mg Q3H PRN PO PAIN; Start 04/10/17 at 18:00 MELANY OTTO MD Apr 10, 2017 18:37
[2017-04-11] VITALS (12 sets, daily range): BP systolic 103–119; BP diastolic 52–70; PULSE 68–92; RESP 20–21
[2017-04-11] MEDS: morphine 4 MG/ML VIAL IV PRN ×4 (04:08→19:37)
[2017-04-11] MEDS: PANTOPRAZOLE (EC) 40 MG TAB PO SCH (06:37)
[2017-04-11] MEDS: ASPIRIN (EC) 81 MG TAB PO SCH (08:07)
[2017-04-11] MEDS: morphine (ER) 15 MG TAB PO SCH ×2 (08:07→21:30)
[2017-04-11] MEDS: LEVETIRACETAM (100 MG/ML) 5ML CUP PO SCH ×2 (08:07→21:29)
--- NOTE | 2017-04-11 16:21 | CONS ---
Date/Time of Note Date/Time of Note DATE: 04/11/17 TIME: 16:20 Assessment/Plan Assessment/Plan Chief Complaint/Hosp Course Assessment: 1. NSTEMI - possible coronary vasospasm, normal coronary arteries on angiography 2. Metastatic choriocarcinoma 3. Right knee pathologic fracture 4. Seizures secondary to brain metastases stable on Keppra therapy Recommendations: -continue aspirin 81mg daily -can consider calcium channel yoko for vasospasm, though currently with borderline blood pressures and cannot tolerate -no additional cardiac work up at this time Problems: Consultation Date/Type/Reason Admit Date/Time Apr 07, 2017 at 13:46 Initial Consult Date 04/08/17 Type of Consultation: Cardiology 24 HR Interval Summary Free Text/Dictation No acute events. Denies chest pain or shortness of breath. Right radial artery access site intact. Detailed Summary Additional Comments 14 point review of systems without changes. Exam/Review of Systems Vital Signs Vitals Vital Signs Date Time Temp Pulse Resp B/P Pulse Ox O2 Delivery O2 Flow Rate FiO2 04/11/17 16:06 71 04/11/17 15:57 98.5 20 103/52 98 04/10/17 13:12 Room Air Intake and Output 04/10/17 04/10/17 04/11/17 15:00 23:00 07:00 Intake Total 800 ml 600 ml Balance 800 ml 600 ml Exam Constitutional: alert, oriented Neck: non-tender, supple, no bruits, No jvd Respiratory: clear to auscultation, normal air movement, no crackles/rales, No wheezing Cardiovascular: nl pulses, regular rate and rhythm, N S3, No S4, No diastolic murmur, No edema, No jugular venous distention (JVD), No murmurs/extra sounds Gastrointestinal: bowel sounds, non-tender, soft Extremities: normal pulses, no calf tenderness, No clubbing, No cyanosis, No edema Skin: nl turgor, rash or lesions Results Result Diagram: 04/10/17 0537 04/10/17 0537 Medications Medications Current Medications Aspirin (Halfprin) 81 mg DAILY PO Last administered on 04/11/17t 08:07; Admin Dose 81 MG; Start 04/08/17 at 09:00 Ondansetron HCl (Zofran Inj) 4 mg Q6H PRN IV NAUSEA AND/OR VOMITING; Start 04/07/17 at 15:30 Levetiracetam (Keppra Liquid) 500 mg BID PO Last administered on 04/11/17 08: 07; Admin Dose 500 MG; Start 04/07/17 at 21:00 Pantoprazole (Protonix Tab) 40 mg DAILY@06 PO Last administered on 04/11/17 06:37; Admin Dose 40 MG; Start 04/08/17 at 06:00 Morphine Sulfate (morphine) 4 mg Q4H PRN IV pain Last administered on 15:00; Admin Dose 4 MG; Start 04/07/17 at 23:30 Acetaminophen/ Hydrocodone Bitart ([place] (10/325)) 1 tab Q4H PRN PO PAIN Last administered on 04/10/17 03:45; Admin Dose 1 TAB; Start 04/07/17 at 22:00 Morphine Sulfate (Ms Contin (Er)) 15 mg BID PO Last administered on 04/11/17 08:07; Admin Dose 15 MG; Start 04/07/17 at 22:00 Hydromorphone HCl (Dilaudid) 4 mg Q3H PRN PO PAIN Last administered on 18:44; Admin Dose 4 MG; Start 04/10/17 at 18:00 MELANY OTTO MD Apr 11, 2017 16:21
--- NOTE | 2017-04-11 17:48 | PN ---
Date/Time of Note Date/Time of Note DATE: 04/11/17 TIME: 17:45 Assessment/Plan VTE Prophylaxis VTE Prophylaxis Intervention: LMWH Lines/Catheters IV [facility] ([facility] Peripheral IV Urinary Cath still in place: No Assessment/Plan Chief Complaint/Hosp Course 1. Non-ST elevation myocardial infarction. -Status post left heart catheterization that showed normal coronary arteries. -Possible coronary artery spasms. -Continue aspirin. -Calcium channel blockers if blood pressure allows. 2. Right distal femoral supracondylar fracture. -Pain control. -Orthopedic surgery evaluation. -Possible pathologic fracture. 3. Seizure disorder secondary to brain metastasis. -Continue Keppra. -Seizure precautions. 4. Anemia. -Normocytic and hypochromic. -Monitor H&H closely. -Obtain iron panel. 5. 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 -.Follows up with outpatient oncologist. -Currently not on any chemotherapy because she chose not to. 6. Fluids, electrolytes, and nutrition. -Low-cholesterol diet. 7. DVT prophylaxis. -Subcutaneous Lovenox. 8. Plan. -Continue aspirin. -Obtain orthopedic surgery consult. Case discussed with Dr. Celestin. Problems: Subjective 24 Hr Interval Summary Free Text/Dictation Denies any chest pain. Complains of right knee pain. Exam/Review of Systems Vital Signs Vitals Vital Signs Date Time Temp Pulse Resp B/P Pulse Ox O2 Delivery O2 Flow Rate FiO2 04/11/17 16:06 71 04/11/17 15:57 98.5 20 103/52 98 04/10/17 13:12 Room Air Intake and Output 04/10/17 04/10/17 04/11/17 14:59 22:59 06:59 Intake Total 800 ml 600 ml Balance 800 ml 600 ml Exam General: Obese 46 year-old female lying in bed in no apparent distress. HEENT: Normocephalic, Surgical scar on the right occipital area. Eyes: Anicteric sclerae, conjunctivae clear. ENT: Nasal septum midline, oral mucosa moist. Neck supple, no JVD noticed. Respiratory: Bilaterally clear breath sounds. No use of accessory muscles of respiration. No adventitious breath sounds. Cardiovascular: S1, S2 heard. No murmurs or gallops. Abdomen: Soft, nontender, and nondistended. Bowel sounds positive in all 4 quadrants. Genitourinary: Deferred. Extremities: Right knee edema with tenderness to touch and decreased ROM. Neurologic: Cranial nerves II through XII grossly intact. The patient is awake, alert, and oriented. Skin: Normal skin turgor. No skin rashes. Results Result Diagram: 04/10/17 0537 04/10/17 0537 Medications Medications Current Medications Aspirin (Halfprin) 81 mg DAILY PO Last administered on 04/11/17 08:07; Admin Dose 81 MG; Start 04/08/17 at 09:00 Ondansetron HCl (Zofran Inj) 4 mg Q6H PRN IV NAUSEA AND/OR VOMITING; Start 04/07/17 at 15:30 Levetiracetam (Keppra Liquid) 500 mg BID PO Last administered on 04/11/17 08: 07; Admin Dose 500 MG; Start 04/07/17 at 21:00 Pantoprazole (Protonix Tab) 40 mg DAILY@06 PO Last administered on 04/11/17 06:37; Admin Dose 40 MG; Start 04/08/17 at 06:00 Morphine Sulfate (morphine) 4 mg Q4H PRN IV pain Last administered on 15:00; Admin Dose 4 MG; Start 04/07/17 at 23:30 Acetaminophen/ Hydrocodone Bitart ([place] (10/325)) 1 tab Q4H PRN PO PAIN Last administered on 04/10/17 03:45; Admin Dose 1 TAB; Start 04/07/17 at 22:00 Morphine Sulfate (Ms Contin (Er)) 15 mg BID PO Last administered on 04/11/17 08:07; Admin Dose 15 MG; Start 04/07/17 at 22:00 Hydromorphone HCl (Dilaudid) 4 mg Q3H PRN PO PAIN Last administered on 18:44; Admin Dose 4 MG; Start 04/10/17 at 18:00 CARY CALLAHAN NP Apr 11, 2017 17:48
[2017-04-11] MEDS: HYDROmorphONE 1 MG/ML SYG IV PRN (22:36)
--- NOTE | 2017-04-11 22:58 | CONS ---
DATE OF ADMISSION: 04/07/2017 DATE OF CONSULTATION: 04/11/2017 ORTHOPEDIC SURGICAL CONSULTATION REPORT HISTORY OF PRESENT ILLNESS: The patient is a 46-year-old female with choriocarcinoma, with known metastasis to the lung and brain, who was admitted on the March, when she came to the emergency room complaining of pain involving her right knee and left-sided chest pain. She already underwent craniotomy to relieve the intracranial pressure from brain metastasis and has a seizure disorder, which is controlled with Keppra therapy. She was undergoing chemotherapy; however, this is on hold for now. She started to have pain around the right knee about a month ago; however, there was a sudden increase of the pain about a week prior to her admission. Diagnostic studies, including CT scan of the right lower extremity revealed the presence of a metastatic lesion in the distal femur around the supracondylar area, with obvious fracture through the metastatic lesion. She has a mild but diffuse swelling around the supracondylar area of the right knee. There was a tenderness on palpation. Range of motion of the right knee was limited because of the pain. There was no obvious neurovascular compromise involving the right lower extremity at this time. CT scan of the right lower extremity revealed a supracondylar fracture of the right femur through the area of the metastatic lesion. DIAGNOSTIC IMPRESSION: 1. Pathologic fracture involving the supracondylar area of the right femur. Recommendations for treatment will be temporary immobilization with a long-leg brace, with a dial lock at the knee joint for preoperative and postoperative use as a protection. 2. Open reduction internal fixation of the supracondylar fracture of the right femur when medically cleared. Dictated By: In Catherine Cannon MD /[email or web address]/isabel /Document#: [id number]
[2017-04-12] VITALS (11 sets, daily range): BP systolic 99–117; BP diastolic 51–67; PULSE 64–86; RESP 19–20
[2017-04-12] MEDS ORDERED: DIPHENHYDRAMINE 50 MG CAP PO ONE (01:30)
[2017-04-12] MEDS: PANTOPRAZOLE (EC) 40 MG TAB PO SCH (06:25)
[2017-04-12] MEDS: HYDROmorphONE 1 MG/ML SYG IV PRN ×2 (06:26→13:14)
[2017-04-12 06:44] LABS: BASOPHIL # 0.1 10^3/ul (0.0-0.1); BASOPHILS % 0.6 % (0.0-2.0); EOSINOPHILS # 0.4 10^3/ul (0.0-0.5); EOSINOPHILS % 4.3 % (0.0-7.0); HEMATOCRIT 27.8 % (37.0-47.0); HEMOGLOBIN 8.9 g/dl (12.0-16.0); LYMPHOCYTES # 1.9 10^3/ul (0.8-2.9); LYMPHOCYTES % 22.3 % (15.0-51.0); MEAN CORPUSCULAR HEMOGLOBIN 27.4 pg (29.0-33.0); MEAN CORPUSCULAR VOLUME 85.5 fl (82.0-101.0); MEAN PLATELET VOLUME 10.7 fl (7.4-10.4); MONOCYTE # 0.8 10^3/ul (0.3-0.9); MONOCYTES % 9.6 % (0.0-11.0); NEUTROPHIL # 5.4 10^3/ul (1.6-7.5); NEUTROPHILS % 62.3 % (39.0-77.0); PLATELET COUNT 233 10^3/UL (140-415); RED BLOOD COUNT 3.25 10^6/ul (4.20-5.40); RED CELL DISTRIBUTION WIDTH 17.6 % (11.5-14.5); WHITE BLOOD COUNT 8.6 10^3/ul (4.8-10.8)
[2017-04-12 07:04] LABS: IRON 34 ug/dl (35-150)
[2017-04-12 07:05] LABS: MAGNESIUM 1.8 mg/dl (1.7-2.5); PHOSPHORUS 4.4 mg/dl (2.5-4.9)
[2017-04-12 07:09] LABS: CALCIUM 9.2 mg/dl (8.4-10.2); CREATININE 0.76 mg/dl (0.44-1.00); POTASSIUM 3.8 mmol/L (3.5-5.1)
[2017-04-12 07:13] LABS: TOTAL IRON BINDING CAPACITY 308 ug/dl (241-421)
[2017-04-12] MEDS: ASPIRIN (EC) 81 MG TAB PO SCH (08:29)
[2017-04-12] MEDS: LEVETIRACETAM (100 MG/ML) 5ML CUP PO SCH ×2 (08:29→20:28)
[2017-04-12] MEDS: morphine (ER) 15 MG TAB PO SCH ×2 (08:29→20:28)
[2017-04-12] MEDS: ENOXAPARIN 40 MG/0.4 ML SYG SC SCH (08:31)
--- NOTE | 2017-04-12 14:22 | PN ---
Date/Time of Note Date/Time of Note DATE: 04/12/17 TIME: 14:15 Assessment/Plan VTE Prophylaxis VTE Prophylaxis Intervention: LMWH Lines/Catheters IV [facility]ter Type (from [facility] Saline Lock Urinary Cath still in place: No Assessment/Plan Chief Complaint/Hosp Course 1. Non-ST elevation myocardial infarction. -Status post left heart catheterization that showed normal coronary arteries. -Possible coronary artery spasms. -Continue aspirin. -Calcium channel blockers if blood pressure allows. 2. Right distal femoral supracondylar fracture. -Pain control. -Orthopedic surgery evaluation. -Orthopedic surgery recommending open reduction and internal fixation. 3. Seizure disorder secondary to brain metastasis. -Continue Keppra. -Seizure precautions. 4. Anemia. -Normocytic and hypochromic. -Monitor H&H closely. -Iron panel showing iron deficiency. Start iron supplements. 5. 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 -.Follows up with outpatient oncologist. -Currently not on any chemotherapy because she chose not to. 5. Fluids, electrolytes, and nutrition. -Low-cholesterol diet. 6. DVT prophylaxis. -Subcutaneous Lovenox. 7. Plan. -Await orthopedic surgery intervention. Perioperative risk stratification: The patient is a 46-year-old female with significant comorbidities including morbid obesity, metastatic cholangiocarcinoma and a recent NSTEMI with angiogram showing clean coronaries. Given that the patient is at [id number] risk for perioperative medical complications. Nevertheless, the benefits of surgical intervention for her right supracondylar femoral fracture will outweigh the risks. Case discussed with Dr. Celestin. Problems: Subjective 24 Hr Interval Summary Free Text/Dictation Denies any chest pain. Complains of right knee pain. Exam/Review of Systems Vital Signs Vitals Vital Signs Date Time Temp Pulse Resp B/P Pulse Ox O2 Delivery O2 Flow Rate FiO2 04/12/17 12:13 75 04/12/17 10:59 97.7 20 109/66 96 04/10/17 13:12 Room Air Intake and Output 04/11/17 04/11/17 04/12/17 14:59 22:59 06:59 Intake Total 1200 ml 550 ml Balance 1200 ml 550 ml Exam General: Obese 46 year-old female lying in bed in no apparent distress. HEENT: Normocephalic, Surgical scar on the right occipital area. Eyes: Anicteric sclerae, conjunctivae clear. ENT: Nasal septum midline, oral mucosa moist. Neck supple, no JVD noticed. Respiratory: Bilaterally clear breath sounds. No use of accessory muscles of respiration. No adventitious breath sounds. Cardiovascular: S1, S2 heard. No murmurs or gallops. Abdomen: Soft, nontender, and nondistended. Bowel sounds positive in all 4 quadrants. Genitourinary: Deferred. Extremities: Right knee edema with tenderness to touch and decreased ROM. Neurologic: Cranial nerves II through XII grossly intact. The patient is awake, alert, and oriented. Skin: Normal skin turgor. No skin rashes. Results Result Diagram: 04/12/17 0607 04/12/17 0607 Results 24 hrs Laboratory Tests Test 04/12/17 06:07 White Blood Count 8.6 # Red Blood Count 3.25 L Hemoglobin 8.9 L Hematocrit 27.8 L Mean Corpuscular Volume 85.5 Mean Corpuscular Hemoglobin 27.4 L Mean Corpuscular Hemoglobin Concent 32.0 Red Cell Distribution Width 17.6 H Platelet Count 233 Mean Platelet Volume 10.7 H Neutrophils % 62.3 Lymphocytes % 22.3 Monocytes % 9.6 Eosinophils % 4.3 Basophils % 0.6 Nucleated Red Blood Cells % 0.0 Neutrophils # 5.4 Lymphocytes # 1.9 Monocytes # 0.8 Eosinophils # 0.4 Basophils # 0.1 Nucleated Red Blood Cells # 0.0 Sodium Level 139 Potassium Level 3.8 Chloride Level 104 Carbon Dioxide Level 26 Anion Gap 13 Blood Urea Nitrogen 18 Creatinine 0.76 Glucose Level 88 Calcium Level 9.2 Phosphorus Level 4.4 Magnesium Level 1.8 Iron Level 34 L Total Iron Binding Capacity 308 Percent Iron Saturation 11 L Ferritin 411.0 H Medications Medications Current Medications Aspirin (Halfprin) 81 mg DAILY PO Last administered on 04/12/17 08:29; Admin Dose 81 MG; Start 04/08/17 at 09:00 Ondansetron HCl (Zofran Inj) 4 mg Q6H PRN IV NAUSEA AND/OR VOMITING; Start 04/07/17 at 15:30 Levetiracetam (Keppra Liquid) 500 mg BID PO Last administered on 04/12/17 08: 29; Admin Dose 500 MG; Start 04/07/17 at 21:00 Pantoprazole (Protonix Tab) 40 mg DAILY@06 PO Last administered on 04/12/17 06:25; Admin Dose 40 MG; Start 04/08/17 at 06:00 Morphine Sulfate (morphine) 4 mg Q4H PRN IV pain Last administered on 19:37; Admin Dose 4 MG; Start 04/07/17 at 23:30; Status Future Hold Acetaminophen/ Hydrocodone Bitart ([place] (10/325)) 1 tab Q4H PRN PO PAIN Last administered on 04/10/17 03:45; Admin Dose 1 TAB; Start 04/07/17 at 22:00 Morphine Sulfate (Ms Contin (Er)) 15 mg BID PO Last administered on 04/12/17 08:29; Admin Dose 15 MG; Start 04/07/17 at 22:00 Hydromorphone HCl (Dilaudid) 4 mg Q3H PRN PO PAIN Last administered on 18:44; Admin Dose 4 MG; Start 04/10/17 at 18:00; Status Future Hold Enoxaparin Sodium (Lovenox) 40 mg DAILY SC Last administered on 04/12/17 08: 31; Admin Dose 40 MG; Start 04/12/17 at 09:00 Hydromorphone HCl (Dilaudid) 1 mg Q4H PRN IV SEVERE PAIN LEVEL 7-10 Last administered on 04/12/17 13:14; Admin Dose 1 MG; Start 04/11/17 at 21:00 Docusate Sodium/ Ferrous Fumarate (Shweta-Sequels) 1 tab BID PO ; Start at 15:00 CARY CALLAHAN NP Apr 12, 2017 14:22
[2017-04-12] MEDS: FERROUS FUMARATE (SR) TAB PO SCH ×2 (15:38→20:28)
[2017-04-12] MEDS ORDERED: SOD CHLORIDE 0.9% 250 ML IV* ONE (17:59)
[2017-04-12] MEDS ORDERED: HYDROmorphONE 1 MG/ML SYG IV PRN (18:00)
[2017-04-12] MEDS ORDERED: FUROSEMIDE 40 MG INJ IV SCH (18:00)
--- NOTE | 2017-04-12 19:07 | CONS ---
Date/Time of Note Date/Time of Note DATE: 04/12/17 TIME: 19:04 Assessment/Plan Assessment/Plan Chief Complaint/Hosp Course Pre-op evaluation: Pt is to undergo intermediate risk surgery. She is at intermediate risk due to recent NSTEMI though coronaries were free of significant disease. EF preserved and no heart failure. No further workup necessary and can proceed with surgery as planned. NSTEMI - possible coronary vasospasm, normal coronary arteries on angiography Metastatic choriocarcinoma Right knee pathologic fracture Seizures secondary to brain metastases stable on Keppra therapy No further workup necessary and can proceed with surgery as planned. -ASA held. Can restart after surgery -can consider imdur after surgery Problems: Consultation Date/Type/Reason Admit Date/Time Apr 07, 2017 at 13:46 Initial Consult Date 04/08/17 Type of Consultation: Cardiology 24 HR Interval Summary Free Text/Dictation No o/n events. Plan is for ORIF of knee fracture Exam/Review of Systems Vital Signs Vitals Vital Signs Date Time Temp Pulse Resp B/P Pulse Ox O2 Delivery O2 Flow Rate FiO2 04/12/17 16:35 72 04/12/17 15:51 97.8 20 109/54 100 04/10/17 13:12 Room Air Intake and Output 04/11/17 04/11/17 04/12/17 15:00 23:00 07:00 Intake Total 1200 ml 550 ml Balance 1200 ml 550 ml Exam Constitutional: alert, oriented Psych: no complaints Head: atraumatic, normocephalic Neck: No jvd Respiratory: clear to auscultation, No crackles/rales Cardiovascular: regular rate and rhythm, No edema, No systolic murmur Gastrointestinal: non-tender, soft Neurological: nl mental status, nl speech Results Result Diagram: 04/12/17 0607 04/12/17 0607 Results 24 hrs Laboratory Tests Test 04/12/17 06:07 White Blood Count 8.6 # Red Blood Count 3.25 L Hemoglobin 8.9 L Hematocrit 27.8 L Mean Corpuscular Volume 85.5 Mean Corpuscular Hemoglobin 27.4 L Mean Corpuscular Hemoglobin Concent 32.0 Red Cell Distribution Width 17.6 H Platelet Count 233 Mean Platelet Volume 10.7 H Neutrophils % 62.3 Lymphocytes % 22.3 Monocytes % 9.6 Eosinophils % 4.3 Basophils % 0.6 Nucleated Red Blood Cells % 0.0 Neutrophils # 5.4 Lymphocytes # 1.9 Monocytes # 0.8 Eosinophils # 0.4 Basophils # 0.1 Nucleated Red Blood Cells # 0.0 Sodium Level 139 Potassium Level 3.8 Chloride Level 104 Carbon Dioxide Level 26 Anion Gap 13 Blood Urea Nitrogen 18 Creatinine 0.76 Glucose Level 88 Calcium Level 9.2 Phosphorus Level 4.4 Magnesium Level 1.8 Iron Level 34 L Total Iron Binding Capacity 308 Percent Iron Saturation 11 L Ferritin 411.0 H Medications Medications Current Medications Aspirin (Halfprin) 81 mg DAILY PO Last administered on 04/12/17 08:29; Admin Dose 81 MG; Start 04/08/17 at 09:00; Status Future Hold Ondansetron HCl (Zofran Inj) 4 mg Q6H PRN IV NAUSEA AND/OR VOMITING; Start 04/07/17 at 15:30 Levetiracetam (Keppra Liquid) 500 mg BID PO Last administered on 04/12/17 08: 29; Admin Dose 500 MG; Start 04/07/17 at 21:00 Pantoprazole (Protonix Tab) 40 mg DAILY@06 PO Last administered on 04/12/17 06:25; Admin Dose 40 MG; Start 04/08/17 at 06:00 Morphine Sulfate (morphine) 4 mg Q4H PRN IV pain Last administered on 19:37; Admin Dose 4 MG; Start 04/07/17 at 23:30; Status Future Hold Acetaminophen/ Hydrocodone Bitart ([place] (10/325)) 1 tab Q4H PRN PO PAIN Last administered on 04/10/17 03:45; Admin Dose 1 TAB; Start 04/07/17 at 22:00 Morphine Sulfate (Ms Contin (Er)) 15 mg BID PO Last administered on 04/12/17 08:29; Admin Dose 15 MG; Start 04/07/17 at 22:00 Enoxaparin Sodium (Lovenox) 40 mg DAILY SC Last administered on 04/12/17 08: 31; Admin Dose 40 MG; Start 04/12/17 at 09:00; Status Future Hold Hydromorphone HCl (Dilaudid) 1 mg Q4H PRN IV SEVERE PAIN LEVEL 7-10 Last administered on 04/12/17 13:14; Admin Dose 1 MG; Start 04/11/17 at 21:00; Status Future Hold Docusate Sodium/ Ferrous Fumarate ([place]weta-Sequels) 1 tab BID PO Last administered on 04/12/17t 15:38; Admin Dose 1 TAB; Start 04/12/17 at 15:00 Furosemide (Lasix) 10 mg ONCE IV ; Start 04/12/17 at 18:00; Stop 04/13/17 at 17:59 Hydromorphone HCl (Dilaudid) 8 mg Q3H PRN PO PAIN; Start 04/12/17 at 18:30 ROME NICHOLS Apr 12, 2017 19:07
[2017-04-12] MEDS: HYDROmorphONE 4 MG TAB PO PRN (21:39)
[2017-04-13] VITALS (26 sets, daily range): BP systolic 103–164; BP diastolic 53–95; PULSE 64–124; RESP 13–27
[2017-04-13] MEDS: HYDROmorphONE 4 MG TAB PO PRN ×2 (00:42→23:51)
[2017-04-13] MEDS: PANTOPRAZOLE (EC) 40 MG TAB PO SCH (00:42)
[2017-04-13 08:48] LABS: BASOPHIL # 0.1 10^3/ul (0.0-0.1); BASOPHILS % 0.6 % (0.0-2.0); EOSINOPHILS # 0.4 10^3/ul (0.0-0.5); EOSINOPHILS % 4.2 % (0.0-7.0); HEMATOCRIT 33.8 % (37.0-47.0); HEMOGLOBIN 10.9 g/dl (12.0-16.0); LYMPHOCYTES # 1.1 10^3/ul (0.8-2.9); LYMPHOCYTES % 13.2 % (15.0-51.0); MEAN CORPUSCULAR HEMOGLOBIN 27.7 pg (29.0-33.0); MEAN CORPUSCULAR HGB CONC 32.2 g/dl (32.0-37.0); MEAN PLATELET VOLUME 10.3 fl (7.4-10.4); MONOCYTE # 0.7 10^3/ul (0.3-0.9); MONOCYTES % 8.4 % (0.0-11.0); NEUTROPHIL # 6.2 10^3/ul (1.6-7.5); NEUTROPHILS % 72.8 % (39.0-77.0); PLATELET COUNT 202 10^3/UL (140-415); RED BLOOD COUNT 3.93 10^6/ul (4.20-5.40); WHITE BLOOD COUNT 8.5 10^3/ul (4.8-10.8)
[2017-04-13 08:58] LABS: CREATININE 0.79 mg/dl (0.44-1.00)
[2017-04-13 09:00] LABS: MAGNESIUM 1.7 mg/dl (1.7-2.5); PHOSPHORUS 4.4 mg/dl (2.5-4.9)
[2017-04-13 09:10] LABS: INR 1.03; PROTIME 13.6 Sec (11.9-14.9); PT RATIO 1.1
[2017-04-13 09:11] LABS: PARTIAL THROMBOPLASTIN TIME 28.6 Sec (25.0-35.0)
[2017-04-13] MEDS: LEVETIRACETAM (100 MG/ML) 5ML CUP PO SCH ×2 (10:06→20:23)
[2017-04-13] MEDS: FERROUS FUMARATE (SR) TAB PO SCH ×2 (10:06→20:23)
[2017-04-13] MEDS: morphine (ER) 15 MG TAB PO SCH ×2 (10:07→20:23)
--- NOTE | 2017-04-13 10:12 | PN ---
Date/Time of Note Date/Time of Note DATE: 04/13/17 TIME: 10:11 Assessment/Plan VTE Prophylaxis VTE Prophylaxis Intervention: contraindicated Lines/Catheters IV [facility] Type (from [facility]): Saline Lock Urinary Cath still in place: No Assessment/Plan Chief Complaint/Hosp Course 1. Non-ST elevation myocardial infarction. -Status post left heart catheterization that showed normal coronary arteries. -Possible coronary artery spasms. -Continue aspirin. -Calcium channel blockers if blood pressure allows. 2. Right distal femoral supracondylar fracture. -Pain control. -Orthopedic surgery evaluation. -Orthopedic surgery recommending open reduction and internal fixation. 3. Seizure disorder secondary to brain metastasis. -Continue Keppra. -Seizure precautions. 4. Anemia. -Normocytic and hypochromic. -Monitor H&H closely. -Iron panel showing iron deficiency. Start iron supplements. 5. 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 -.Follows up with outpatient oncologist. -Currently not on any chemotherapy because she chose not to. 5. Fluids, electrolytes, and nutrition. -Low-cholesterol diet. 6. DVT prophylaxis. -Subcutaneous Lovenox. 7. Plan. -Await orthopedic surgery intervention. Case discussed with Dr. Celestin. Problems: Subjective 24 Hr Interval Summary Free Text/Dictation Right knee pain fairly well controlled. Exam/Review of Systems Vital Signs Vitals Vital Signs Date Time Temp Pulse Resp B/P Pulse Ox O2 Delivery O2 Flow Rate FiO2 04/13/17 08:07 76 04/13/17 07:11 98.1 19 122/66 99 04/10/17 13:12 Room Air Intake and Output 04/12/17 04/12/17 04/13/17 15:00 23:00 07:00 Intake Total 1000 ml 800 ml Balance 1000 ml 800 ml Exam General: Obese 46 year-old female lying in bed in no apparent distress. HEENT: Normocephalic, Surgical scar on the right occipital area. Eyes: Anicteric sclerae, conjunctivae clear. ENT: Nasal septum midline, oral mucosa moist. Neck supple, no JVD noticed. Respiratory: Bilaterally clear breath sounds. No use of accessory muscles of respiration. No adventitious breath sounds. Cardiovascular: S1, S2 heard. No murmurs or gallops. Abdomen: Soft, nontender, and nondistended. Bowel sounds positive in all 4 quadrants. Genitourinary: Deferred. Extremities: Right knee edema with tenderness to touch and decreased ROM. Neurologic: Cranial nerves II through XII grossly intact. The patient is awake, alert, and oriented. Skin: Normal skin turgor. No skin rashes. Results Result Diagram: 04/13/1782004/13/17 0821 Results 24 hrs Laboratory Tests Test 04/13/17 08:21 White Blood Count 8.5 Red Blood Count 3.93 #L Hemoglobin 10.9 #L Hematocrit 33.8 #L Mean Corpuscular Volume 86.0 Mean Corpuscular Hemoglobin 27.7 L Mean Corpuscular Hemoglobin Concent 32.2 Red Cell Distribution Width 16.0 H Platelet Count 202 Mean Platelet Volume 10.3 Neutrophils % 72.8 Lymphocytes % 13.2 L Monocytes % 8.4 Eosinophils % 4.2 Basophils % 0.6 Nucleated Red Blood Cells % 0.0 Neutrophils # 6.2 Lymphocytes # 1.1 Monocytes # 0.7 Eosinophils # 0.4 Basophils # 0.1 Nucleated Red Blood Cells # 0.0 Prothrombin Time 13.6 Prothrombin Time Ratio 1.1 INR International Normalized Ratio 1.03 Activated Partial Thromboplast Time 28.6 Sodium Level 137 Potassium Level 4.0 Chloride Level 102 Carbon Dioxide Level 28 Anion Gap 11 Blood Urea Nitrogen 16 Creatinine 0.79 Glucose Level 85 Calcium Level 9.0 Phosphorus Level 4.4 Magnesium Level 1.7 Medications Medications Current Medications Aspirin (Halfprin) 81 mg DAILY PO Last administered on 04/12/17 08:29; Admin Dose 81 MG; Start 04/08/17 at 09:00; Status Future Hold Ondansetron HCl (Zofran Inj) 4 mg Q6H PRN IV NAUSEA AND/OR VOMITING; Start 04/07/17 at 15:30 Levetiracetam (Keppra Liquid) 500 mg BID PO Last administered on 04/13/17 10: 06; Admin Dose 500 MG; Start 04/07/17 at 21:00 Pantoprazole (Protonix Tab) 40 mg DAILY@06 PO Last administered on 04/13/17 00:42; Admin Dose 40 MG; Start 04/08/17 at 06:00 Morphine Sulfate (morphine) 4 mg Q4H PRN IV pain Last administered on 19:37; Admin Dose 4 MG; Start 04/07/17 at 23:30; Status Future Hold Acetaminophen/ Hydrocodone Bitart ([place] (10)) 1 tab Q4H PRN PO PAIN Last administered on 04/10/17 03:45; Admin Dose 1 TAB; Start 04/07/17 at 22:00 Morphine Sulfate (Ms Contin (Er)) 15 mg BID PO Last administered on 04/13/17 10:07; Admin Dose 15 MG; Start 04/07/17 at 22:00 Enoxaparin Sodium (Lovenox) 40 mg DAILY SC Last administered on 04/12/17 08: 31; Admin Dose 40 MG; Start 04/12/17 at 09:00; Status Future Hold Hydromorphone HCl (Dilaudid) 1 mg Q4H PRN IV SEVERE PAIN LEVEL 7-10 Last administered on 04/12/17 13:14; Admin Dose 1 MG; Start 04/11/17 at 21:00; Status Future Hold Docusate Sodium/ Ferrous Fumarate (Shweta-Sequels) 1 tab BID PO Last administered on 04/13/17 10:06; Admin Dose 1 TAB; Start 04/12/17 at 15:00 Furosemide (Lasix) 10 mg ONCE IV Last administered on 04/13/17 03:18; Admin Dose 10 MG; Start 04/12/17 at 18:00; Stop 04/13/17 at 17:59 Hydromorphone HCl (Dilaudid) 8 mg Q3H PRN PO PAIN Last administered on 00:42; Admin Dose 8 MG; Start 04/12/17 at 18:30 CARY CALLAHAN NP Apr 13, 2017 10:12
--- NOTE | 2017-04-13 10:32 | CONS ---
Date/Time of Note Date/Time of Note DATE: 04/13/17 TIME: 10:31 Assessment/Plan Assessment/Plan Chief Complaint/Hosp Course Pre-op evaluation: Pt is to undergo intermediate risk surgery. She is at intermediate risk due to recent NSTEMI though coronaries were free of significant disease. EF preserved and no heart failure. No further workup necessary and can proceed with surgery as planned. NSTEMI - possible coronary vasospasm, normal coronary arteries on angiography Metastatic choriocarcinoma Right knee pathologic fracture Seizures secondary to brain metastases stable on Keppra therapy No further workup necessary and can proceed with surgery as planned. -ASA held. Can restart after surgery -can consider imdur after surgery Problems: Consultation Date/Type/Reason Admit Date/Time Apr 07, 2017 at 13:46 Initial Consult Date 04/08/17 Type of Consultation: Cardiology 24 HR Interval Summary Free Text/Dictation No o/n events. Awaiting surgery today Exam/Review of Systems Vital Signs Vitals Vital Signs Date Time Temp Pulse Resp B/P Pulse Ox O2 Delivery O2 Flow Rate FiO2 04/13/17 08:07 76 04/13/17 07:11 98.1 19 122/66 99 04/10/17 13:12 Room Air Intake and Output 04/12/17 04/12/17 04/13/17 15:00 23:00 07:00 Intake Total 1000 ml 800 ml Balance 1000 ml 800 ml Exam Constitutional: alert, oriented Psych: nl mood/affect, no complaints Head: atraumatic, normocephalic Neck: supple, No jvd Respiratory: clear to auscultation, No crackles/rales Cardiovascular: regular rate and rhythm, No edema Gastrointestinal: non-tender, soft Neurological: nl mental status, nl speech Results Result Diagram: 04/13/1782004/13/17820 Results 24 hrs Laboratory Tests Test 04/13/17 08:21 White Blood Count 8.5 Red Blood Count 3.93 #L Hemoglobin 10.9 #L Hematocrit 33.8 #L Mean Corpuscular Volume 86.0 Mean Corpuscular Hemoglobin 27.7 L Mean Corpuscular Hemoglobin Concent 32.2 Red Cell Distribution Width 16.0 H Platelet Count 202 Mean Platelet Volume 10.3 Neutrophils % 72.8 Lymphocytes % 13.2 L Monocytes % 8.4 Eosinophils % 4.2 Basophils % 0.6 Nucleated Red Blood Cells % 0.0 Neutrophils # 6.2 Lymphocytes # 1.1 Monocytes # 0.7 Eosinophils # 0.4 Basophils # 0.1 Nucleated Red Blood Cells # 0.0 Prothrombin Time 13.6 Prothrombin Time Ratio 1.1 INR International Normalized Ratio 1.03 Activated Partial Thromboplast Time 28.6 Sodium Level 137 Potassium Level 4.0 Chloride Level 102 Carbon Dioxide Level 28 Anion Gap 11 Blood Urea Nitrogen 16 Creatinine 0.79 Glucose Level 85 Calcium Level 9.0 Phosphorus Level 4.4 Magnesium Level 1.7 Medications Medications Current Medications Aspirin (Halfprin) 81 mg DAILY PO Last administered on 04/12/17 08:29; Admin Dose 81 MG; Start 04/08/17 at 09:00; Status Future Hold Ondansetron HCl (Zofran Inj) 4 mg Q6H PRN IV NAUSEA AND/OR VOMITING; Start 04/07/17 at 15:30 Levetiracetam (Keppra Liquid) 500 mg BID PO Last administered on 04/13/17 10: 06; Admin Dose 500 MG; Start 04/07/17 at 21:00 Pantoprazole (Protonix Tab) 40 mg DAILY@06 PO Last administered on 04/13/17 00:42; Admin Dose 40 MG; Start 04/08/17 at 06:00 Morphine Sulfate (morphine) 4 mg Q4H PRN IV pain Last administered on 19:37; Admin Dose 4 MG; Start 04/07/17 at 23:30; Status Future Hold Acetaminophen/ Hydrocodone Bitart ([place] (10/325)) 1 tab Q4H PRN PO PAIN Last administered on 04/10/17 03:45; Admin Dose 1 TAB; Start 04/07/17 at 22:00 Morphine Sulfate (Ms Contin (Er)) 15 mg BID PO Last administered on 04/13/17 10:07; Admin Dose 15 MG; Start 04/07/17 at 22:00 Enoxaparin Sodium (Lovenox) 40 mg DAILY SC Last administered on 04/12/17 08: 31; Admin Dose 40 MG; Start 04/12/17 at 09:00; Status Future Hold Hydromorphone HCl (Dilaudid) 1 mg Q4H PRN IV SEVERE PAIN LEVEL 7-10 Last administered on 04/12/17 13:14; Admin Dose 1 MG; Start 04/11/17 at 21:00; Status Future Hold Docusate Sodium/ Ferrous Fumarate (Shweta-Sequels) 1 tab BID PO Last administered on 04/13/17 10:06; Admin Dose 1 TAB; Start 04/12/17 at 15:00 Furosemide (Lasix) 10 mg ONCE IV Last administered on 04/13/17 03:18; Admin Dose 10 MG; Start 04/12/17 at 18:00; Stop 04/13/17 at 17:59 Hydromorphone HCl (Dilaudid) 8 mg Q3H PRN PO PAIN Last administered on 00:42; Admin Dose 8 MG; Start 04/12/17 at 18:30 ROME NICHOLS Apr 13, 2017 10:32
[2017-04-13] MEDS: morphine 4 MG/ML VIAL IV PRN ×2 (11:04→21:27)
[2017-04-13] MEDS ORDERED: HYDROmorphONE (0.2 MG/ML) 10ML SYG IV PRN ×3 (14:30)
[2017-04-13] MEDS ORDERED: FENTAnyl 50 MCG/ML VIAL IV PRN ×3 (14:30)
[2017-04-13] MEDS ORDERED: DIPHENHYDRAMINE 50 MG INJ IV PRN (14:30)
[2017-04-13] MEDS ORDERED: MEPERIDINE 25 MG INJ IV PRN (14:30)
[2017-04-13] MEDS ORDERED: PROCHLORPERAZINE 10 MG INJ IV PRN (14:30)
[2017-04-13] MEDS ORDERED: ONDANSETRON 4 MG INJ IV PRN (14:30)
[2017-04-13] MEDS ORDERED: POLYMYXIN/BACITRACIN 1L IRRIG ONE (14:40)
--- NOTE | 2017-04-13 14:53 | HPN ---
Date/Time of Note Date/Time of Note DATE: 04/13/17 TIME: 14:52 Interval H&P Admission Note Pt. seen H&P reviewed: No system changes LIDYA ABRAMS MD Apr 13, 2017 14:53
[2017-04-13] MEDS ORDERED: FENTAnyl 50 MCG/ML VIAL ONE (15:09)
[2017-04-13] MEDS ORDERED: MIDAZOLAM 1 MG/ML 2 ML INJ ONE (15:09)
[2017-04-13] MEDS ORDERED: SUCCINYLCHOLINE CHLORIDE 100 MG/5 ML SYG IV ONE (15:09)
[2017-04-13] MEDS ORDERED: PROPOFOL 20 ML ONE (15:09)
[2017-04-13] MEDS ORDERED: ROCURONIUM 50 MG INJ ONE (15:09)
[2017-04-13] MEDS ORDERED: LIDOCAINE 2% (SDV) 5 ML INJ ONE (15:09)
[2017-04-13] MEDS ORDERED: CEFAZOLIN 1 GM INJ ONE (15:27)
[2017-04-13] MEDS ORDERED: FAMOTIDINE 20 MG INJ ONE (15:37)
[2017-04-13] MEDS ORDERED: ONDANSETRON 4 MG INJ ONE (15:37)
[2017-04-13] MEDS ORDERED: DEXAMETHASONE 4 MG/ML 1 ML INJ ONE (15:37)
[2017-04-13] MEDS ORDERED: HYDROmorphONE 2 MG/ML SYG ONE ×2 (16:28→18:44)
[2017-04-13] MEDS ORDERED: HYDROCODONE/APAP (5/325) TAB PO PRN (18:30)
[2017-04-13] MEDS ORDERED: morphine 4 MG/ML VIAL IV PRN (18:30)
[2017-04-13] MEDS ORDERED: NACL 0.9% 3 ML SYG IV SCH (18:30)
--- NOTE | 2017-04-13 18:32 | SIPON ---
Date/Time of Note Date/Time of Note DATE: 04/13/17 TIME: 18:27 Operative Report Preoperative Diagnosis pathologic supracondylar fracture of Rt. femer Postoperative Diagnosis same as preop Operation/Procedure Performed orif of above Surgeon see signature line engineer first assistant none Anesthesia: general Estimated blood loss: 150 - 200 ml's Transfusion Required none Specimen none Grafts/Implants plate and screws Complications none LIDYA ABRAMS MD Apr 13, 2017 18:32
--- NOTE | 2017-04-13 19:15 | RADRPT ---
PROCEDURE: XR Knee. CLINICAL INDICATION: Postop follow-up TECHNIQUE: Three views of the right knee are available for review. COMPARISON: 04/07/2017 FINDINGS: There has been interval placement of metallic plate and multiple cortical and compression screws mauro ng the lateral aspect of the distal right femur. Alignment at the fracture site is anatomic. There is interval placement of skin sudheer along the lateral aspect of the distal thigh. There is no evidence of hardware failure. Subcutaneous emphysema in the soft tissues of the lateral thigh are likely postsurgical in nature. IMPRESSION: 1. Interval ORIF of distal right femur fracture with anatomic alignment and without evidence of jenny dware failure or other complication. 2. Subcutaneous emphysema, likely postsurgical. RPTAT: HLDM .Rio Lara MD, MD Date Time Electronically viewed and signed by .Rio Lara MD, on 04/13/2017 19:15 .M/
[2017-04-13] MEDS: CEFAZOLIN 1 GM/50 ML (PMX) 50 ML IVPB SCH (19:52)
[2017-04-13] MEDS: SOD CHLORIDE 0.9% 1,000 ML IV SCH (20:23)
--- NOTE | 2017-04-13 20:27 | OPR ---
DATE OF OPERATION: 04/13/2017 PREOPERATIVE DIAGNOSIS: Pathologic fracture involving the supracondylar portion of the right femur. POSTOPERATIVE DIAGNOSIS: Pathologic fracture involving the supracondylar portion of the right femur. OPERATIVE PERFORMED: Open reduction and internal fixation of the supracondylar fracture of the right femur using plate for supracondylar fracture and screws. ANESTHESIA: General anesthesia. SURGEON: Corina Cannon MD OPERATIVE PROCEDURE AND FINDINGS: Under general anesthesia, the patient was placed in supine position upon the operating table. A tourniquet was placed over the proximal portion of the right thigh and was inflated up to 300 mmHg. Through the lateral longitudinal incision, distal femur and supracondylar area was exposed. On inspection, there indeed was a pathologic fracture, with obvious metastatic material. There were some metastatic tissues lateral to the supracondylar area. It was noted that there was considerable bleeding, which was rather difficult to control. Because of this reason and also because of the fear of further spreading the metastatic lesion, the open reduction and internal fixation was carried out in situ. The plate was somewhat applied more laterally, avoiding an invasion into the metastatic lesion in the lateral aspect of the supracondylar portion of the right femur. At the end of the procedure, the stability was satisfactory. After irrigation and hemostasis, closure of the incision was carried out using 0 Vicryl for muscle and fascia and 2-0 Vicryl for subcutaneous tissues. Final skin closure was carried out with skin sudheer. The patient tolerated the entire procedure very well and was sent to the recovery room in good condition. Dictated By: In Catherine Cannon MD /aleena/isabel /Document#: [id number]
--- NOTE | 2017-04-13 23:46 | RADRPT ---
PROCEDURE: Fluoroscopy. CLINICAL INDICATION: Intraoperative fluoroscopic guidance. ORIF right femur TECHNIQUE: Fluoroscopic guidance provided for intraoperative procedure. 81.3 seconds fluoroscopy t taran was used. 5 intraoperative spot radiographs/cine sequences obtained. COMPARISON: 04/13/2017 right femur FINDINGS: Right lateral fixator plate and screws with progressive placement along the lateral distal femur. Ramirez rgical drain in place. IMPRESSION: Fluoroscopic guidance provided for intraoperative procedure. Distal right femoral fracture repair. RPTAT:AAJJ Shandra Miller Physician Date Time Electronically viewed and signed by Physician Michele on 04/13/2017 23:45 DESTINY/
[2017-04-14] VITALS (12 sets, daily range): BP systolic 100–132; BP diastolic 60–84; PULSE 96–107; RESP 16–20
[2017-04-14] MEDS: morphine 4 MG/ML VIAL IV PRN ×2 (01:53→05:57)
[2017-04-14] MEDS: CEFAZOLIN 1 GM/50 ML (PMX) 50 ML IVPB SCH ×2 (01:58→09:48)
[2017-04-14] MEDS: SOD CHLORIDE 0.9% 1,000 ML IV SCH ×2 (04:11→09:48)
[2017-04-14] MEDS: HYDROmorphONE 4 MG TAB PO PRN (04:53)
[2017-04-14] MEDS: PANTOPRAZOLE (EC) 40 MG TAB PO SCH (05:57)
[2017-04-14 07:01] LABS: BASOPHILS % 0.3 % (0.0-2.0); EOSINOPHILS % 0.1 % (0.0-7.0); HEMATOCRIT 30.4 % (37.0-47.0); HEMOGLOBIN 9.8 g/dl (12.0-16.0); LYMPHOCYTES # 1.3 10^3/ul (0.8-2.9); LYMPHOCYTES % 11.1 % (15.0-51.0); MEAN CORPUSCULAR HEMOGLOBIN 27.5 pg (29.0-33.0); MEAN CORPUSCULAR HGB CONC 32.2 g/dl (32.0-37.0); MEAN CORPUSCULAR VOLUME 85.4 fl (82.0-101.0); MEAN PLATELET VOLUME 10.4 fl (7.4-10.4); MONOCYTE # 1.2 10^3/ul (0.3-0.9); NEUTROPHILS % 77.6 % (39.0-77.0); PLATELET COUNT 213 10^3/UL (140-415); RED BLOOD COUNT 3.56 10^6/ul (4.20-5.40); RED CELL DISTRIBUTION WIDTH 15.9 % (11.5-14.5); WHITE BLOOD COUNT 11.6 10^3/ul (4.8-10.8)
[2017-04-14 07:32] LABS: CALCIUM 8.3 mg/dl (8.4-10.2); CREATININE 0.67 mg/dl (0.44-1.00); POTASSIUM 4.1 mmol/L (3.5-5.1)
[2017-04-14 07:45] LABS: MAGNESIUM 1.7 mg/dl (1.7-2.5); PHOSPHORUS 3.7 mg/dl (2.5-4.9)
[2017-04-14] MEDS ORDERED: HYDROmorphONE 0.2 MG/ML PCA IV SCH (08:00)
--- NOTE | 2017-04-14 09:17 | CONS ---
Date/Time of Note Date/Time of Note DATE: 04/14/17 TIME: 09:16 Assessment/Plan Assessment/Plan Chief Complaint/Hosp Course Pre-op evaluation: s/p surgery without complications NSTEMI - possible coronary vasospasm, normal coronary arteries on angiography Metastatic choriocarcinoma Right knee pathologic fracture Seizures secondary to brain metastases stable on Keppra therapy -can restart ASA when safe -imdur to prevent possible spasm -will follow as needed. Please contact with any issues/concerns Problems: Consultation Date/Type/Reason Admit Date/Time Apr 07, 2017 at 13:46 Initial Consult Date 04/08/17 Type of Consultation: Cardiology 24 HR Interval Summary Free Text/Dictation s/p surgery which was uneventful. Has alot of knee pain. No chest pain Exam/Review of Systems Vital Signs Vitals Vital Signs Date Time Temp Pulse Resp B/P Pulse Ox O2 Delivery O2 Flow Rate FiO2 04/14/17 08:12 Nasal Cannula 3.0 04/14/17 08:00 105 04/14/17 07:41 97.9 17 132/77 95 Intake and Output 04/13/17 04/13/17 04/14/17 15:00 23:00 07:00 Intake Total 1150 ml 1000 ml Output Total 100 ml Balance 1050 ml 1000 ml Exam Constitutional: alert, oriented Psych: nl mood/affect, no complaints Head: atraumatic, normocephalic Neck: No jvd Respiratory: clear to auscultation, No crackles/rales Cardiovascular: regular rate and rhythm, No edema Gastrointestinal: non-tender, soft Neurological: nl mental status, nl speech Results Result Diagram: 04/14/17 0600 04/14/17 0600 Results 24 hrs Laboratory Tests Test 04/14/17 06:00 White Blood Count 11.6 #H Red Blood Count 3.56 L Hemoglobin 9.8 L Hematocrit 30.4 L Mean Corpuscular Volume 85.4 Mean Corpuscular Hemoglobin 27.5 L Mean Corpuscular Hemoglobin Concent 32.2 Red Cell Distribution Width 15.9 H Platelet Count 213 Mean Platelet Volume 10.4 Neutrophils % 77.6 H Lymphocytes % 11.1 L Monocytes % 10.0 Eosinophils % 0.1 Basophils % 0.3 Nucleated Red Blood Cells % 0.0 Neutrophils # 9.0 H Lymphocytes # 1.3 Monocytes # 1.2 H Eosinophils # 0.0 Basophils # 0.0 Nucleated Red Blood Cells # 0.0 Sodium Level 135 Potassium Level 4.1 Chloride Level 102 Carbon Dioxide Level 24 Anion Gap 13 Blood Urea Nitrogen 15 Creatinine 0.67 Glucose Level 111 Calcium Level 8.3 L Phosphorus Level 3.7 Magnesium Level 1.7 Medications Medications Current Medications Aspirin (Halfprin) 81 mg DAILY PO Last administered on 04/12/17 08:29; Admin Dose 81 MG; Start 04/08/17 at 09:00; Status Future Hold Ondansetron HCl (Zofran Inj) 4 mg Q6H PRN IV NAUSEA AND/OR VOMITING Last administered on 04/13/17 19:26; Admin Dose 4 MG; Start 04/07/17 at 15:30 Levetiracetam (Keppra Liquid) 500 mg BID PO Last administered on 04/13/17 20: 23; Admin Dose 500 MG; Start 04/07/17 at 21:00 Pantoprazole (Protonix Tab) 40 mg DAILY@06 PO Last administered on 04/14/17 05:57; Admin Dose 40 MG; Start 04/08/17 at 06:00 Enoxaparin Sodium (Lovenox) 40 mg DAILY SC Last administered on 04/12/17 08: 31; Admin Dose 40 MG; Start 04/12/17 at 09:00; Status Future Hold Docusate Sodium/ Ferrous Fumarate 1 tab 1 tab BID PO Last administered on 04/13 20:23; Admin Dose 1 TAB; Start 04/12/17 at 15:00 Cefazolin Sodium 50 ml @ 100 mls/hr Q8H IVPB Last administered on 04/14/17 01:58; Admin Dose 100 MLS/HR; Start 04/13/17 at 18:30; Stop 04/14/17 at 10:59 Sodium Chloride (NS) 1,000 ml @ 100 mls/hr Q10H IV Last administered on 20:23; Admin Dose 100 MLS/HR; Start 04/13/17 at 18:11 Hydromorphone HCl 1 mg 1 mg Q4PCA IV ; Start 04/14/17 at 08:00 Acetaminophen (Ofirmev 1000mg/ 100ml Iv) 100 ml @ 400 mls/hr Q6H IVPB ; Start 04/14/17 at 08:00; Status UNV KOSHKARYAN,ROME Apr 14, 2017 09:17
[2017-04-14] MEDS: FERROUS FUMARATE (SR) TAB PO SCH ×2 (09:47→20:51)
[2017-04-14] MEDS: LEVETIRACETAM (100 MG/ML) 5ML CUP PO SCH ×2 (09:47→20:51)
--- NOTE | 2017-04-14 11:13 | CONS ---
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 Will discontinue morphine just continue on Dilaudid however when she is tapered down will restart her long- acting medications and start a different as needed breakthrough pain control medication at a later date. So we will will start IV Tylenol scheduled. Consultation Date/Type/Reason Admit Date/Time Apr 07, 2017 at 13:46 Hx of Present Illness This is a 46-year-old female that see in pain management consultation. Patient has a history of metastatic choriocarcinoma with widespread metastasis who had a pathological fracture of her distal femoral supracondylar fracture. Patient has had a definitive surgical procedure done 04/13. She complains of severe pain in the affected postsurgical knee region rated 10/10 with appropriate medications of IV Dilaudid at 3 mg IV every 3 hours. Additionally she is taking Dilaudid 8 mg every 3 hours as needed. She states that approximately 50 % her pain is alleviated with IV Dilaudid the pain is interfering with her physical functioning mood sleeping pattern she is postop day 1. She denies nausea vomiting constipation itching mental cloudiness sweating fatigue drowsiness side effects of current pain control medications are none with the exception of codeine-based medication she becomes nauseous. Patient has refused chemotherapy for her underlying diagnosis although she states she is getting in a second thought now since she has had a metastatic lesion to her bone. As far as pain management there is no history of alcohol or drug abuse patient has never admitted to any type of rehab program she is not asked for frequent dosings are short and or shortening intervals . Nor is she using her pain medication response to situational stressors there is no past history of arrests or victims for her been a victim of abuse. There are no psychosocial issues clinically apparent or by history. Pain management Social History Alcohol Use: none Smoking Status: Never smoker Drug Use: none Exam/Review of Systems Vital Signs Vitals Vital Signs Date Time Temp Pulse Resp B/P Pulse Ox O2 Delivery O2 Flow Rate FiO2 04/14/17 10:33 18 04/14/17 08:12 Nasal Cannula 3.0 04/14/17 08:00 105 04/14/17 07:41 97.9 132/77 95 Intake and Output 04/13/17 04/13/17 04/14/17 14:59 22:59 06:59 Intake Total 1150 ml 1000 ml Output Total 100 ml Balance 1050 ml 1000 ml Exam Constitutional: alert, oriented, well developed Psych: nl mood/affect, no complaints Head: atraumatic, normocephalic ENMT: nl external ears & nose, nl lips & teeth, nl nasal mucosa & septum Neck: non-tender, supple Respiratory: clear to auscultation, normal air movement, other (Decreased breath sounds left lobe compared to right) Cardiovascular: nl pulses, regular rate and rhythm Gastrointestinal: nl liver, spleen, non-tender, soft Neurological: HISTOPATHOLOGIST II-XII intact, nl mental status, nl speech, nl strength Results Result Diagram: 04/14/17 0600 04/14/17 0600 Results 24 hrs Laboratory Tests Test 04/14/17 06:00 White Blood Count 11.6 #H Red Blood Count 3.56 L Hemoglobin 9.8 L Hematocrit 30.4 L Mean Corpuscular Volume 85.4 Mean Corpuscular Hemoglobin 27.5 L Mean Corpuscular Hemoglobin Concent 32.2 Red Cell Distribution Width 15.9 H Platelet Count 213 Mean Platelet Volume 10.4 Neutrophils % 77.6 H Lymphocytes % 11.1 L Monocytes % 10.0 Eosinophils % 0.1 Basophils % 0.3 Nucleated Red Blood Cells % 0.0 Neutrophils # 9.0 H Lymphocytes # 1.3 Monocytes # 1.2 H Eosinophils # 0.0 Basophils # 0.0 Nucleated Red Blood Cells # 0.0 Sodium Level 135 Potassium Level 4.1 Chloride Level 102 Carbon Dioxide Level 24 Anion Gap 13 Blood Urea Nitrogen 15 Creatinine 0.67 Glucose Level 111 Calcium Level 8.3 L Phosphorus Level 3.7 Magnesium Level 1.7 Medications Medications Current Medications Aspirin (Halfprin) 81 mg DAILY PO Last administered on 04/12/17 08:29; Admin Dose 81 MG; Start 04/08/17 at 09:00; Status Future Hold Ondansetron HCl (Zofran Inj) 4 mg Q6H PRN IV NAUSEA AND/OR VOMITING Last administered on 04/13/17 19:26; Admin Dose 4 MG; Start 04/07/17 at 15:30 Levetiracetam (Keppra Liquid) 500 mg BID PO Last administered on 04/14/17 09: 47; Admin Dose 500 MG; Start 04/07/17 at 21:00 Pantoprazole (Protonix Tab) 40 mg DAILY@06 PO Last administered on 04/14/17 05:57; Admin Dose 40 MG; Start 04/08/17 at 06:00 Enoxaparin Sodium (Lovenox) 40 mg DAILY SC Last administered on 04/12/17 08: 31; Admin Dose 40 MG; Start 04/12/17 at 09:00; Status Future Hold Docusate Sodium/ Ferrous Fumarate 1 tab 1 tab BID PO Last administered on 04/14 09:47; Admin Dose 1 TAB; Start 04/12/17 at 15:00 Sodium Chloride (NS) 1,000 ml @ 100 mls/hr Q10H IV Last administered on 09:48; Admin Dose 100 MLS/HR; Start 04/13/17 at 18:11 Hydromorphone HCl 1 mg 1 mg Q4PCA IV Last administered on 04/14/17 10:19; Admin Dose 1 MG; Start 04/14/17 at 08:00 Acetaminophen (Ofirmev 1000mg/ 100ml Iv) 100 ml @ 400 mls/hr Q6H IVPB ; Start 04/14/17 at 10:00 Isosorbide Mononitrate (Imdur) 30 mg DAILY PO ; Start 04/15/17 at 09:00 BRYCE RITCHIE Apr 14, 2017 11:13
[2017-04-14] MEDS: ACETAMINOPHEN 1000MG/100ML IV 100 ML IVPB SCH ×3 (12:34→22:00)
--- NOTE | 2017-04-14 13:35 | PN ---
Date/Time of Note Date/Time of Note DATE: 04/14/17 TIME: 13:21 Assessment/Plan VTE Prophylaxis VTE Prophylaxis Intervention: LMWH Lines/Catheters IV Catheter Type (from Nrs): Peripheral IV Urinary Cath still in place: No Assessment/Plan Assessment/Plan 1. Pathological right supracondylar femur fracture, s/p ORIF 04/13/2017, follow up with surgery and PT 2. Metastatic choriocarcinoma, to lungs, bones, brain, follow up with oncology 3. NSTEMI with negative coronary angiography 4. Seizure disorder, on keppra 5. Normocytic anemia, malignancy related, follow up with H/H 6. DVT prophylaxis: lovenox Subjective 24 Hr Interval Summary Free Text/Dictation right knee pain from surgery Exam/Review of Systems Vital Signs Vitals Vital Signs Date Time Temp Pulse Resp B/P Pulse Ox O2 Delivery O2 Flow Rate FiO2 04/14/17 12:00 98 04/14/17 11:28 97.8 17 116/67 96 04/14/17 11:25 Nasal Cannula 3.0 Intake and Output 04/13/17 04/13/17 04/14/17 15:00 23:00 07:00 Intake Total 1150 ml 1000 ml Output Total 100 ml Balance 1050 ml 1000 ml Exam Constitutional: alert, obese, oriented, well developed Psych: nl mood/affect, no complaints Head: atraumatic, normocephalic Eyes: EOMI, PERRL, nl conjunctiva, nl lids ENMT: nl external ears & nose, nl lips & teeth, nl nasal mucosa & septum Neck: non-tender, supple Respiratory: clear to auscultation, normal air movement, No congested cough, No crackles/rales, No diminished breath sounds, No intercostal retraction, No labored breathing, No other, No respirations, No tactile fremitus, No wheezing Cardiovascular: nl pulses, regular rate and rhythm, No S3, No S4, No bruits, No diastolic murmur, No edema, No gallop, No irregular rhythm, No jugular venous distention (JVD), No murmurs/extra sounds, No other, No rub, No systolic murmur Gastrointestinal: nl liver, spleen, non-tender, soft Extremities: normal pulses, other (right knee pain), No calf tenderness, No clubbing, No cyanosis 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, nl mental status, nl speech, nl strength Skin: nl turgor Lymph: nl lymph nodes Results Result Diagram: 04/14/17 0600 04/14/17 0600 Results 24 hrs Laboratory Tests Test 04/14/17 06:00 White Blood Count 11.6 #H Red Blood Count 3.56 L Hemoglobin 9.8 L Hematocrit 30.4 L Mean Corpuscular Volume 85.4 Mean Corpuscular Hemoglobin 27.5 L Mean Corpuscular Hemoglobin Concent 32.2 Red Cell Distribution Width 15.9 H Platelet Count 213 Mean Platelet Volume 10.4 Neutrophils % 77.6 H Lymphocytes % 11.1 L Monocytes % 10.0 Eosinophils % 0.1 Basophils % 0.3 Nucleated Red Blood Cells % 0.0 Neutrophils # 9.0 H Lymphocytes # 1.3 Monocytes # 1.2 H Eosinophils # 0.0 Basophils # 0.0 Nucleated Red Blood Cells # 0.0 Sodium Level 135 Potassium Level 4.1 Chloride Level 102 Carbon Dioxide Level 24 Anion Gap 13 Blood Urea Nitrogen 15 Creatinine 0.67 Glucose Level 111 Calcium Level 8.3 L Phosphorus Level 3.7 Magnesium Level 1.7 Medications Medications Current Medications Aspirin (Halfprin) 81 mg DAILY PO Last administered on 04/12/17 08:29; Admin Dose 81 MG; Start 04/08/17 at 09:00; Status Future Hold Ondansetron HCl (Zofran Inj) 4 mg Q6H PRN IV NAUSEA AND/OR VOMITING Last administered on 04/13/17 19:26; Admin Dose 4 MG; Start 04/07/17 at 15:30 Levetiracetam (Keppra Liquid) 500 mg BID PO Last administered on 04/14/17 09: 47; Admin Dose 500 MG; Start 04/07/17 at 21:00 Pantoprazole (Protonix Tab) 40 mg DAILY@06 PO Last administered on 04/14/17 05:57; Admin Dose 40 MG; Start 04/08/17 at 06:00 Enoxaparin Sodium (Lovenox) 40 mg DAILY SC Last administered on 04/12/17 08: 31; Admin Dose 40 MG; Start 04/12/17 at 09:00; Status Future Hold Docusate Sodium/ Ferrous Fumarate 1 tab 1 tab BID PO Last administered on 12/15 /17at 09:47; Admin Dose 1 TAB; Start 04/12/17 at 15:00 Sodium Chloride (NS) 1,000 ml @ 100 mls/hr Q10H IV Last administered on 09:48; Admin Dose 100 MLS/HR; Start 04/13/17 at 18:11 Hydromorphone HCl 1 mg 1 mg Q4PCA IV Last administered on 04/14/17 10:19; Admin Dose 1 MG; Start 04/14/17 at 08:00 Acetaminophen (Ofirmev 1000mg/ 100ml Iv) 100 ml @ 400 mls/hr Q6H IVPB Last administered on 04/14/17 12:34; Admin Dose 400 MLS/HR; Start 04/14/17 at 10: 00 Isosorbide Mononitrate (Imdur) 30 mg DAILY PO ; Start 04/15/17 at 09:00 ROMAN LOONEY MD Apr 14, 2017 13:31
[2017-04-14] MEDS: HYDROmorphONE 2 MG/ML SYG IV PRN ×2 (15:08→20:05)
[2017-04-14] MEDS: morphine (ER) 15 MG TAB PO SCH (23:44)
[2017-04-15] VITALS (12 sets, daily range): BP systolic 107–121; BP diastolic 58–68; PULSE 99–125; RESP 16–24
[2017-04-15] MEDS: SOD CHLORIDE 0.9% 1,000 ML IV SCH ×3 (01:11→22:40)
[2017-04-15] MEDS: HYDROmorphONE 2 MG/ML SYG IV PRN ×5 (01:12→21:31)
[2017-04-15] MEDS: ACETAMINOPHEN 1000MG/100ML IV 100 ML IVPB SCH ×4 (03:29→22:40)
[2017-04-15] MEDS: PANTOPRAZOLE (EC) 40 MG TAB PO SCH (05:11)
[2017-04-15 06:42] LABS: BASOPHILS % 0.4 % (0.0-2.0); EOSINOPHILS # 0.2 10^3/ul (0.0-0.5); EOSINOPHILS % 2.4 % (0.0-7.0); HEMATOCRIT 26.1 % (37.0-47.0); HEMOGLOBIN 8.4 g/dl (12.0-16.0); LYMPHOCYTES # 1.7 10^3/ul (0.8-2.9); LYMPHOCYTES % 16.6 % (15.0-51.0); MEAN CORPUSCULAR HEMOGLOBIN 28.1 pg (29.0-33.0); MEAN CORPUSCULAR HGB CONC 32.2 g/dl (32.0-37.0); MEAN CORPUSCULAR VOLUME 87.3 fl (82.0-101.0); MEAN PLATELET VOLUME 10.5 fl (7.4-10.4); MONOCYTE # 1.1 10^3/ul (0.3-0.9); MONOCYTES % 10.7 % (0.0-11.0); NEUTROPHILS % 69.3 % (39.0-77.0); PLATELET COUNT 177 10^3/UL (140-415); RED BLOOD COUNT 2.99 10^6/ul (4.20-5.40); RED CELL DISTRIBUTION WIDTH 16.4 % (11.5-14.5); WHITE BLOOD COUNT 10.1 10^3/ul (4.8-10.8)
[2017-04-15 07:04] LABS: MAGNESIUM 1.8 mg/dl (1.7-2.5); PHOSPHORUS 2.8 mg/dl (2.5-4.9)
[2017-04-15 07:06] LABS: CALCIUM 8.2 mg/dl (8.4-10.2); CREATININE 0.75 mg/dl (0.44-1.00); POTASSIUM 4.3 mmol/L (3.5-5.1)
[2017-04-15] MEDS: LEVETIRACETAM (100 MG/ML) 5ML CUP PO SCH ×2 (08:53→21:28)
[2017-04-15] MEDS: ISOSORBIDE MONONITRATE(SR)30 MG TAB PO SCH (08:53)
[2017-04-15] MEDS: morphine (ER) 15 MG TAB PO SCH ×2 (08:53→21:29)
[2017-04-15] MEDS: FERROUS FUMARATE (SR) TAB PO SCH ×2 (08:53→21:28)
--- NOTE | 2017-04-15 11:54 | PN ---
Date/Time of Note Date/Time of Note DATE: 04/15/17 TIME: 11:53 Assessment/Plan VTE Prophylaxis VTE Prophylaxis Intervention: other (Will resume once cleared by Orthopedic Surgery.) Lines/Catheters IV Catheter Type (from [facility]): Peripheral IV Urinary Cath still in place: No Assessment/Plan Chief Complaint/Hosp Course 1. S/P non-ST elevation myocardial infarction. -Status post left heart catheterization that showed normal coronary arteries. -Possible coronary artery spasms. -Continue aspirin. -Calcium channel blockers if blood pressure allows. 2. Right distal femoral supracondylar fracture. -Pain control. -Status post open reduction and internal fixation of the supracondylar fracture of the right femur using plate for supracondylar fracture and screws. 3. Seizure disorder secondary to brain metastasis. -Continue Keppra. -Seizure precautions. 4. Anemia. -Normocytic and hypochromic. -Monitor H&H closely. -Iron panel showing iron deficiency. Continue iron supplements. 5. 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 -.Follows up with outpatient oncologist. -Currently not on any chemotherapy because she chose not to. Patient asking for a second opinion. 6. Fluids, electrolytes, and nutrition. -Low-cholesterol diet. 7. DVT prophylaxis. -Subcutaneous Lovenox (to be resumed once cleared by Orthopedic Surgery). 8. Plan. -Continue pain control. -Obtain oncology evaluation. Case discussed with Dr. Page. Problems: Subjective 24 Hr Interval Summary Free Text/Dictation Right knee pain well controlled. Exam/Review of Systems Vital Signs Vitals Vital Signs Date Time Temp Pulse Resp B/P Pulse Ox O2 Delivery O2 Flow Rate FiO2 04/15/17 08:17 Nasal Cannula 3.0 04/15/17 08:14 99 04/15/17 07:53 98.6 16 115/59 94 Intake and Output 04/14/17 04/14/17 04/15/17 15:00 23:00 07:00 Intake Total 750 ml 1200 ml 900 ml Balance 750 ml 1200 ml 900 ml Exam General: Obese 46 year-old female lying in bed in no apparent distress. HEENT: Normocephalic, Surgical scar on the right occipital area. Eyes: Anicteric sclerae, conjunctivae clear. ENT: Nasal septum midline, oral mucosa moist. Neck supple, no JVD noticed. Respiratory: Bilaterally clear breath sounds. No use of accessory muscles of respiration. No adventitious breath sounds. Cardiovascular: S1, S2 heard. No murmurs or gallops. Abdomen: Soft, nontender, and nondistended. Bowel sounds positive in all 4 quadrants. Genitourinary: Deferred. Extremities: Right lower extremity immobilizer in place. Neurologic: Cranial nerves II through XII grossly intact. The patient is awake, alert, and oriented. Skin: Normal skin turgor. No skin rashes. Results Result Diagram: 04/15/1715 04/15/17 0615 Results 24 hrs Laboratory Tests Test 04/15/17 06:15 04/15/17 06:29 White Blood Count 10.1 Red Blood Count 2.99 L Hemoglobin 8.4 L Hematocrit 26.1 L Mean Corpuscular Volume 87.3 Mean Corpuscular Hemoglobin 28.1 L Mean Corpuscular Hemoglobin Concent 32.2 Red Cell Distribution Width 16.4 H Platelet Count 177 Mean Platelet Volume 10.5 H Neutrophils % 69.3 Lymphocytes % 16.6 Monocytes % 10.7 Eosinophils % 2.4 Basophils % 0.4 Nucleated Red Blood Cells % 0.0 Neutrophils # 7.0 Lymphocytes # 1.7 Monocytes # 1.1 H Eosinophils # 0.2 Basophils # 0.0 Nucleated Red Blood Cells # 0.0 Sodium Level 137 Potassium Level 4.3 Chloride Level 103 Carbon Dioxide Level 30 Anion Gap 8 Blood Urea Nitrogen 14 Creatinine 0.75 Glucose Level 96 Calcium Level 8.2 L Phosphorus Level 2.8 Magnesium Level 1.8 Lab Scanned Report BLOOD TRANSFUSION Medications Medications Current Medications Aspirin (Halfprin) 81 mg DAILY PO Last administered on 04/12/17 08:29; Admin Dose 81 MG; Start 04/08/17 at 09:00; Status Future Hold Ondansetron HCl (Zofran Inj) 4 mg Q6H PRN IV NAUSEA AND/OR VOMITING Last administered on 04/13/17 19:26; Admin Dose 4 MG; Start 04/07/17 at 15:30 Levetiracetam (Keppra Liquid) 500 mg BID PO Last administered on 04/15/17 08: 53; Admin Dose 500 MG; Start 04/07/17 at 21:00 Pantoprazole (Protonix Tab) 40 mg DAILY@06 PO Last administered on 04/15/17 05:11; Admin Dose 40 MG; Start 04/08/17 at 06:00 Enoxaparin Sodium (Lovenox) 40 mg DAILY SC Last administered on 04/12/17 08: 31; Admin Dose 40 MG; Start 04/12/17 at 09:00; Status Future Hold Docusate Sodium/ Ferrous Fumarate 1 tab 1 tab BID PO Last administered on 04/15 08:53; Admin Dose 1 TAB; Start 04/12/17 at 15:00 Sodium Chloride 1,000 ml @ 100 mls/hr Q10H IV Last administered on 04/15/17 08:52; Admin Dose 100 MLS/HR; Start 04/13/17 at 18:11 Acetaminophen (Ofirmev 1000mg/ 100ml Iv) 100 ml @ 400 mls/hr Q6H IVPB Last administered on 04/15/17 08:53; Admin Dose 400 MLS/HR; Start 04/14/17 at 10: 00 Isosorbide Mononitrate (Imdur) 30 mg DAILY PO Last administered on 04/15/17 08:53; Admin Dose 30 MG; Start 04/15/17 at 09:00 Hydromorphone HCl (Dilaudid) 4 mg Q4H PRN IV PAIN Last administered on 08:54; Admin Dose 4 MG; Start 04/14/17 at 14:30 Morphine Sulfate (Ms Contin (Er)) 15 mg BID PO Last administered on 04/15/17 08:53; Admin Dose 15 MG; Start 04/14/17 at 21:00 CARY CALLAHAN NP Apr 15, 2017 11:54
--- NOTE | 2017-04-15 15:11 | CONS ---
Date/Time of Note Date/Time of Note DATE: 04/15/17 TIME: 15:02 Assessment/Plan Assessment/Plan Chief Complaint/Hosp Course metastatic choriocarcinoma with metastases to the lungs and brain s/p left parietal craniotomy 4 years ago. She is managed as outpatient with Dr. Aiken but after 4 years of different therapies, at this time she has chosen to put chemotherapy on hold. After her last session about 6 weeks ago, she developed severe pain in her right knee. was found to have femur pathological fracture s/ p ORIF. Normocytic anemia secondary iron deficiency and chronic disease, need to rule out other etiology non-ST elevation myocardial infarction. -Status post left heart catheterization that showed normal coronary arteries. 04/10/17 Right distal femoral supracondylar fracture -Status post open reduction and internal fixation of the supracondylar fracture of the right femur using plate for supracondylar fracture and screws. on 04/13/17 Seizure disorder secondary to brain metastasis. Plans: Outpatient radiaiton at the femur pathological fracture site after recovered from surgery. Patient is symptomatic from numerous pulmnoar nodules (metastatic disease), she had received different chemotherapy in the past 4 years. She chose to put chemo on hold in the past 6 weeks. After found the new pathological fracture at femur , She thought about her symptoms and young children, would like to discuss about the option of treatment. Recommend next line of chemotherapy based on the chemotherapy she had received in the past. If didn't want to receive more chemotherapy due to the toxicity in the past 4 years, could consider Immunotherapy either compassionate use or on clinical trial. continue iron supplement Vitamin B12, folic acid level Follow up other specialist other management per PMD. Discussed with patient and her regarding medical condition and above recommendations,understood and would like to see her primary oncologist outpatient for further discussion Time spent on patient 70' Problems: Consultation Date/Type/Reason Admit Date/Time Apr 07, 2017 at 13:46 Date of Consultation: Apr 15, 2017 Type of Consultation: Hematology and oncology Reason for Consultation Metastatic gestational trophoblastic disease (choriocarcinoma) Referring Provider: CARY CALLAHAN NP Hx of Present Illness 46-year-old unfortunate female with a history of metastatic choriocarcinoma with metastases to the lungs and brain s/p left parietal craniotomy 4 years ago. She is managed as outpatient with Dr. Aiken but after 4 years of different therapies, at this time she has chosen to put chemotherapy on hold. After her last session about 6 weeks ago, she developed severe pain in her right knee. was found to have femur pathological fracture s/p ORIF. 07/13/15 MRI brain;~Prior left parietal craniotomy with subjacent resection cavity and hemosiderin deposition. 2. A 1.2 cm heterogeneous mass in the left posterior frontal convexity, concerning for a hemorrhagic metastatic focus with trace surrounding vasogenic edema. Recommend follow-up brain MRI with contrast for further evaluation. 04/07/17 CT head: status post right temporal parietal craniotomy. no acute finding. 04/07/17 CTA chest ; Numerous pulmonary nodules scattered throughout both lungs , most likely consistent with malignancy/metastatic disease. Status post cholecystectomy. Mild intrahepatic and extrahepatic biliary dilatation. NSTEMI with negative coronary angiography on 04/10/17 Pathological right supracondylar femur fracture, s/p ORIF 04/13/2017, follow up with surgery and PT Currently not on any chemotherapy because she chose not to. Patient asking for a second opinion. Oncology consult for Metastatic gestational trophoblastic disease ( choriocarcinoma) to lung and brain. Constitutional: febrile, requiring O2 ENT: No bleeding, No congestion, No discharge, No dysphagia, No no complaints, No other, No pain, No sore throat Respiratory: pleuritic pain, shortness of breath Cardiovascular: No chest pain, No edema, No lightheadedness, No no complaints, No orthopenea, No other, No palpitations, No paroxysmal nocturnal dyspnea Gastrointestinal: No blood, No constipation, No decreased appetite, No diarrhea , No flatus, No nausea, No no complaints, No other, No pain, No passing stool, No vomiting Genitourinary: No bleeding, No discharge, No dysuria, No flank pain, No hematuria, No no complaints, No other Musculoskeletal: No back pain, No bone/joint pain, No neck pain, No no complaints, No other, No restricted range of motion, No swelling Skin: No bruising, No erythema, No laceration, No no complaints, No other, No pruritis, No rash, No skin lesions Neurologic: No confusion, No dizziness, No focal-weakness, No headache, No no complaints, No other, No seizure, No syncope Endocrine: No dry skin, No no complaints, No other, No polydypsia, No polyuria , No temp intolerance Lymphatic: No adenopathy, No lymphadema, No no complaints, No other, No tender nodes Past Medical History Metastatic choriocarcinoma GERD R knee pain Seizure episode from brain mets Past Surgical History Hx of craniectomy in the past "to relieve pressure from mets" Cholecystectomy Family History Significant Family History: diabetes Social History Alcohol Use: none Smoking Status: Never smoker Drug Use: none Other Social History live with family Exam/Review of Systems Vital Signs Vitals Vital Signs Date Time Temp Pulse Resp B/P Pulse Ox O2 Delivery O2 Flow Rate FiO2 04/15/17 12:24 Nasal Cannula 3.0 04/15/17 12:10 97.5 121 22 119/66 100 Intake and Output 04/14/17 04/14/17 04/15/17 15:00 23:00 07:00 Intake Total 750 ml 1200 ml 900 ml Balance 750 ml 1200 ml 900 ml Exam Constitutional: No alert, No distress, No frail, No non-verbal, No obese, No oriented, No other, No well developed Psych: No anxiety, No confusion, No depression, No nl mood/affect, No no complaints, No other, No suicidal Head: No atraumatic, No hematomas, No lacerations, No normocephalic, No other Eyes: No EOMI, No PERRL, No fundi, disc, No icteric, No nl conjunctiva, No nl lids, No nl sclera, No other ENMT: No intubated, No mucosa pink and moist, No nl external ears & nose, No nl lips & teeth, No nl nasal mucosa & septum, No other, No tympanic membranes Respiratory: diminished breath sounds Cardiovascular: No S3, No S4, No bruits, No diastolic murmur, No edema, No gallop, No irregular rhythm, No jugular venous distention (JVD), No murmurs/ extra sounds, No nl pulses, No other, No regular rate and rhythm, No rub, No systolic murmur Gastrointestinal: No ascites, No bowel sounds, No distended, No firm, No hepatomegaly, No mass, No nl liver, spleen, No non-tender, No other, No rebound or guarding, No soft, No splenomegaly, No surgical scars, No tender Extremities: No calf tenderness, No clubbing, No cyanosis, No edema, No normal pulses, No other, No palpable cord, No pitting pedal edema, No tenderness Neurological: No M[employer] II-XII intact, No DTR's symmetric, No confused, No focal weakness, No lethargic, No nl mental status, No nl speech, No nl strength, No numbness, No other, No reflexes, No unresponsive Skin: No diaphoresis, No ecchymosis, No laceration, No nl turgor, No other, No puncture, No rash or lesions Results Result Diagram: 04/15/1715 04/15/1715 Results 24 hrs Laboratory Tests Test 04/15/17 06:15 04/15/17 06:29 White Blood Count 10.1 Red Blood Count 2.99 L Hemoglobin 8.4 L Hematocrit 26.1 L Mean Corpuscular Volume 87.3 Mean Corpuscular Hemoglobin 28.1 L Mean Corpuscular Hemoglobin Concent 32.2 Red Cell Distribution Width 16.4 H Platelet Count 177 Mean Platelet Volume 10.5 H Neutrophils % 69.3 Lymphocytes % 16.6 Monocytes % 10.7 Eosinophils % 2.4 Basophils % 0.4 Nucleated Red Blood Cells % 0.0 Neutrophils # 7.0 Lymphocytes # 1.7 Monocytes # 1.1 H Eosinophils # 0.2 Basophils # 0.0 Nucleated Red Blood Cells # 0.0 Sodium Level 137 Potassium Level 4.3 Chloride Level 103 Carbon Dioxide Level 30 Anion Gap 8 Blood Urea Nitrogen 14 Creatinine 0.75 Glucose Level 96 Calcium Level 8.2 L Phosphorus Level 2.8 Magnesium Level 1.8 Lab Scanned Report BLOOD TRANSFUSION Medications Medications Current Medications Aspirin (Halfprin) 81 mg DAILY PO Last administered on 04/12/17 08:29; Admin Dose 81 MG; Start 04/08/17 at 09:00; Status Future hold Ondansetron HCl (Zofran Inj) 4 mg Q6H PRN IV NAUSEA AND/OR VOMITING Last administered on 04/13/17 19:26; Admin Dose 4 MG; Start 04/07/17 at 15:30 Levetiracetam (Keppra Liquid) 500 mg BID PO Last administered on 04/15/17 08: 53; Admin Dose 500 MG; Start 04/07/17 at 21:00 Pantoprazole (Protonix Tab) 40 mg DAILY@06 PO Last administered on 04/15/17 05:11; Admin Dose 40 MG; Start 04/08/17 at 06:00 Enoxaparin Sodium (Lovenox) 40 mg DAILY SC Last administered on 04/12/17 08: 31; Admin Dose 40 MG; Start 04/12/17 at 09:00; Status Future Hold Docusate Sodium/ Ferrous Fumarate 1 tab 1 tab BID PO Last administered on 04/15 08:53; Admin Dose 1 TAB; Start 04/12/17 at 15:00 Sodium Chloride 1,000 ml @ 100 mls/hr Q10H IV Last administered on 04/15/17 08:52; Admin Dose 100 MLS/HR; Start 04/13/17 at 18:11 Acetaminophen (Ofirmev 1000mg/ 100ml Iv) 100 ml @ 400 mls/hr Q6H IVPB Last administered on 04/15/17 08:53; Admin Dose 400 MLS/HR; Start 04/14/17 at 10: 00 Isosorbide Mononitrate (Imdur) 30 mg DAILY PO Last administered on 04/15/17 08:53; Admin Dose 30 MG; Start 04/15/17 at 09:00 Hydromorphone HCl (Dilaudid) 4 mg Q4H PRN IV PAIN Last administered on 14:26; Admin Dose 4 MG; Start 04/14/17 at 14:30 Morphine Sulfate (Ms Contin (Er)) 15 mg BID PO Last administered on 04/15/17 08:53; Admin Dose 15 MG; Start 04/14/17 at 21:00 LEO JONES MD Apr 15, 2017 15:11
[2017-04-15] MEDS ORDERED: FERROUS SULFATE (EC) 325 MG TAB PO SCH (21:00)
[2017-04-16] VITALS (9 sets, daily range): BP systolic 106–120; BP diastolic 53–69; PULSE 83–109; RESP 18–20
[2017-04-16] MEDS: ACETAMINOPHEN 1000MG/100ML IV 100 ML IVPB SCH ×4 (04:12→22:30)
[2017-04-16] MEDS: HYDROmorphONE 2 MG/ML SYG IV PRN ×5 (04:41→22:31)
[2017-04-16] MEDS: PANTOPRAZOLE (EC) 40 MG TAB PO SCH (06:21)
[2017-04-16 06:48] LABS: HEMATOCRIT 24.7 % (37.0-47.0); HEMOGLOBIN 7.7 g/dl (12.0-16.0); MEAN CORPUSCULAR HEMOGLOBIN 27.8 pg (29.0-33.0); MEAN CORPUSCULAR HGB CONC 31.2 g/dl (32.0-37.0); MEAN CORPUSCULAR VOLUME 89.2 fl (82.0-101.0); MEAN PLATELET VOLUME 10.9 fl (7.4-10.4); PLATELET COUNT 165 10^3/UL (140-415); RED BLOOD COUNT 2.77 10^6/ul (4.20-5.40); WHITE BLOOD COUNT 8.8 10^3/ul (4.8-10.8)
[2017-04-16 06:51] LABS: POSITIVE DIFF @See below
[2017-04-16 07:24] LABS: CREATININE 0.58 mg/dl (0.44-1.00)
[2017-04-16 08:02] LABS: ANISOCYTOSIS 1+ (0-0); BASOPHILS % (M) 1 % (0-2); EOSINOPHILS % (M) 1 % (0-7); MICROCYTOSIS 1+ (0-0); MONOCYTES % (M) 10 % (0-11); OVALOCYTES 1+ (0-0); PLATELET ESTIMATE NORMAL; POIKILOCYTOSIS 1+ (0-0); POLYCHROMASIA 2+ (0-0)
[2017-04-16] MEDS: FERROUS FUMARATE (SR) TAB PO SCH ×2 (09:01→20:58)
[2017-04-16] MEDS: ISOSORBIDE MONONITRATE(SR)30 MG TAB PO SCH (09:01)
[2017-04-16] MEDS: LEVETIRACETAM (100 MG/ML) 5ML CUP PO SCH ×2 (09:01→20:58)
[2017-04-16 09:13] LABS: MAGNESIUM 1.8 mg/dl (1.7-2.5); PHOSPHORUS 3.3 mg/dl (2.5-4.9)
--- NOTE | 2017-04-16 09:17 | PN ---
Date/Time of Note Date/Time of Note DATE: 04/16/17 TIME: 09:15 Assessment/Plan VTE Prophylaxis VTE Prophylaxis Intervention: LMWH Lines/Catheters IV C[facility]ter Type (from [facility] Peripheral IV Urinary Cath still in place: No Assessment/Plan Chief Complaint/Hosp Course 1. S/P non-ST elevation myocardial infarction. -Status post left heart catheterization that showed normal coronary arteries. -Possible coronary artery spasms. -Continue aspirin. 2. Right distal femoral supracondylar fracture. -Pain control. -Status post open reduction and internal fixation of the supracondylar fracture of the right femur using plate for supracondylar fracture and screws. 3. Seizure disorder secondary to brain metastasis. -Continue Keppra. -Seizure precautions. 4. Anemia. -Normocytic and hypochromic. -Monitor H&H closely. -Iron panel showing iron deficiency. Continue iron supplements. -Transfuse blood products as needed. 5. 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 -.Follows up with outpatient oncologist. -Currently not on any chemotherapy because she chose not to. S/P evaluation by inpatient oncologist. After discussion with the inpatient oncologist, she wants to be resumed on chemotherapy with her primary oncologist. 6. Fluids, electrolytes, and nutrition. -Low-cholesterol diet. 7. DVT prophylaxis. -Subcutaneous Lovenox. Hold if worsening anemia. 8. Plan. -Continue pain control. -Continue PT. -Transfer to Med/Surg. -Address discharge disposition. -The patient's wants to take the patient home upon discharge. Case discussed with Dr. Page. Problems: Subjective 24 Hr Interval Summary Free Text/Dictation Right knee pain well controlled. Exam/Review of Systems Vital Signs Vitals Vital Signs Date Time Temp Pulse Resp B/P Pulse Ox O2 Delivery O2 Flow Rate FiO2 04/16/17 08:14 83 04/16/17 08:05 99.3 20 106/53 99 04/15/17 23:51 3.0 04/15/17 21:28 Nasal Cannula Intake and Output 04/15/17 04/15/17 04/16/17 15:00 23:00 07:00 Intake Total 100 ml 2400 ml 200 ml Balance 100 ml 2400 ml 200 ml Exam General: Obese 46 year-old female lying in bed in no apparent distress. HEENT: Normocephalic, Surgical scar on the right occipital area. Eyes: Anicteric sclerae, conjunctivae clear. ENT: Nasal septum midline, oral mucosa moist. Neck supple, no JVD noticed. Respiratory: Bilaterally clear breath sounds. No use of accessory muscles of respiration. No adventitious breath sounds. Cardiovascular: S1, S2 heard. No murmurs or gallops. Abdomen: Soft, nontender, and nondistended. Bowel sounds positive in all 4 quadrants. Genitourinary: Deferred. Extremities: Right lower extremity immobilizer in place. Neurologic: Cranial nerves II through XII grossly intact. The patient is awake, alert, and oriented. Skin: Normal skin turgor. No skin rashes. Results Result Diagram: 04/16/1717 04/16/17 0616 Results 24 hrs Laboratory Tests Test 04/16/17 06:16 04/16/17 06:17 Sodium Level 136 Potassium Level 4.0 Chloride Level 104 Carbon Dioxide Level 24 Anion Gap 12 Blood Urea Nitrogen 11 Creatinine 0.58 Glucose Level 90 Calcium Level 8.0 L White Blood Count 8.8 Red Blood Count 2.77 L Hemoglobin 7.7 L Hematocrit 24.7 L Mean Corpuscular Volume 89.2 Mean Corpuscular Hemoglobin 27.8 L Mean Corpuscular Hemoglobin Concent 31.2 L Red Cell Distribution Width 16.0 H Platelet Count 165 Mean Platelet Volume 10.9 H Neutrophils % Segmented Neutrophils % (Manual) 67 Band Neutrophils % (Manual) 1 Lymphocytes % Lymphocytes % (Manual) 20 Monocytes % Monocytes % (Manual) 10 Eosinophils % Eosinophils % (Manual) 1 Basophils % Basophils % (Manual) 1 Nucleated Red Blood Cells % 0.0 Neutrophils # Neutrophils # (Manual) 5.9 Band Neutrophils # 0.0 Absolute Lymphocytes (Manual) 1.7 Lymphocytes # Monocytes # Absolute Monocytes (Manual) 0.8 Eosinophils # Basophils # Basophils # (Manual) 0.0 Nucleated Red Blood Cells # Platelet Estimate NORMAL Polychromasia 2+ Poikilocytosis 1+ Anisocytosis 1+ Microcytosis 1+ Ovalocytes 1+ Medications Medications Current Medications Aspirin (Halfprin) 81 mg DAILY PO Last administered on 04/12/17t 08:29; Admin Dose 81 MG; Start 04/08/17 at 09:00; Status Future hold Ondansetron HCl (Zofran Inj) 4 mg Q6H PRN IV NAUSEA AND/OR VOMITING Last administered on 04/13/17 19:26; Admin Dose 4 MG; Start 04/07/17 at 15:30 Levetiracetam (Keppra Liquid) 500 mg BID PO Last administered on 04/15/17 21: 28; Admin Dose 500 MG; Start 04/07/17 at 21:00 Pantoprazole (Protonix Tab) 40 mg DAILY@06 PO Last administered on 04/16/17 06:21; Admin Dose 40 MG; Start 04/08/17 at 06:00 Enoxaparin Sodium (Lovenox) 40 mg DAILY SC Last administered on 04/12/17 08: 31; Admin Dose 40 MG; Start 04/12/17 at 09:00; Status Future hold Docusate Sodium/ Ferrous Fumarate 1 tab 1 tab BID PO Last administered on 04/15 21:28; Admin Dose 1 TAB; Start 04/12/17 at 15:00 Sodium Chloride 1,000 ml @ 100 mls/hr Q10H IV Last administered on 04/15/17 22:40; Admin Dose 100 MLS/HR; Start 04/13/17 at 18:11 Acetaminophen (Ofirmev 1000mg/ 100ml Iv) 100 ml @ 400 mls/hr Q6H IVPB Last administered on 04/16/17 04:12; Admin Dose 400 MLS/HR; Start 04/14/17 at 10: 00 Isosorbide Mononitrate (Imdur) 30 mg DAILY PO Last administered on 04/15/17 08:53; Admin Dose 30 MG; Start 04/15/17 at 09:00 Hydromorphone HCl (Dilaudid) 4 mg Q4H PRN IV PAIN Last administered on 04:41; Admin Dose 4 MG; Start 04/14/17 at 14:30 Morphine Sulfate (Ms Contin (Er)) 15 mg BID PO Last administered on 04/15/17 21:29; Admin Dose 15 MG; Start 04/14/17 at 21:00 CARY CALLAHAN NP Apr 16, 2017 09:17
[2017-04-16] MEDS: ENOXAPARIN 40 MG/0.4 ML SYG SC SCH (09:34)
[2017-04-16] MEDS: SOD CHLORIDE 0.9% 1,000 ML IV SCH ×3 (11:46→20:58)
[2017-04-16] MEDS: ASPIRIN (EC) 81 MG TAB PO SCH (11:46)
[2017-04-16] MEDS: morphine (ER) 15 MG TAB PO SCH ×2 (11:47→20:58)
[2017-04-17 01:59] VITALS: BP 100/60; RESP 18
[2017-04-17] MEDS: HYDROmorphONE 2 MG/ML SYG IV PRN ×5 (02:44→21:08)
[2017-04-17] MEDS: ACETAMINOPHEN 1000MG/100ML IV 100 ML IVPB SCH ×4 (05:17→21:09)
[2017-04-17 06:08] LABS: BASOPHILS % 0.3 % (0.0-2.0); EOSINOPHILS # 0.4 10^3/ul (0.0-0.5); EOSINOPHILS % 4.7 % (0.0-7.0); HEMATOCRIT 22.5 % (37.0-47.0); HEMOGLOBIN 7.2 g/dl (12.0-16.0); LYMPHOCYTES # 1.7 10^3/ul (0.8-2.9); LYMPHOCYTES % 18.8 % (15.0-51.0); MEAN CORPUSCULAR HEMOGLOBIN 28.1 pg (29.0-33.0); MEAN CORPUSCULAR VOLUME 87.9 fl (82.0-101.0); MEAN PLATELET VOLUME 10.7 fl (7.4-10.4); MONOCYTE # 0.6 10^3/ul (0.3-0.9); MONOCYTES % 6.9 % (0.0-11.0); NEUTROPHIL # 6.1 10^3/ul (1.6-7.5); NEUTROPHILS % 68.7 % (39.0-77.0); PLATELET COUNT 181 10^3/UL (140-415); RED BLOOD COUNT 2.56 10^6/ul (4.20-5.40); RED CELL DISTRIBUTION WIDTH 15.9 % (11.5-14.5); WHITE BLOOD COUNT 8.9 10^3/ul (4.8-10.8)
[2017-04-17] MEDS: PANTOPRAZOLE (EC) 40 MG TAB PO SCH (06:24)
[2017-04-17] MEDS: SOD CHLORIDE 0.9% 1,000 ML IV SCH ×3 (06:26→16:49)
[2017-04-17 06:44] LABS: CALCIUM 7.4 mg/dl (8.4-10.2); CREATININE 0.54 mg/dl (0.44-1.00); POTASSIUM 3.7 mmol/L (3.5-5.1)
[2017-04-17 07:03] LABS: MAGNESIUM 1.7 mg/dl (1.7-2.5); PHOSPHORUS 3.2 mg/dl (2.5-4.9)
[2017-04-17 07:30] VITALS: BP 105/57; RESP 18
[2017-04-17] MEDS: FERROUS FUMARATE (SR) TAB PO SCH ×2 (08:32→21:07)
[2017-04-17] MEDS: LEVETIRACETAM (100 MG/ML) 5ML CUP PO SCH ×2 (08:32→21:06)
[2017-04-17] MEDS: ISOSORBIDE MONONITRATE(SR)30 MG TAB PO SCH (08:33)
[2017-04-17] MEDS: morphine (ER) 15 MG TAB PO SCH ×2 (08:33→21:07)
[2017-04-17] MEDS: ASPIRIN (EC) 81 MG TAB PO SCH (08:33)
[2017-04-17] MEDS: ENOXAPARIN 40 MG/0.4 ML SYG SC SCH (08:43)
--- NOTE | 2017-04-17 13:32 | PN ---
Date/Time of Note Date/Time of Note DATE: 04/17/17 TIME: 13:29 Assessment/Plan VTE Prophylaxis VTE Prophylaxis Intervention: SCD's Lines/Catheters IV C[facility]ter Type [facility]from [facility] Peripheral IV Urinary Cath still in place: No Assessment/Plan Chief Complaint/Hosp Course Assessment and plan 1. Status post non-ST elevated myocardial infarction. Patient did have left heart catheterization that did show normal coronary arteries. Suspect possible coronary artery spasms. Continue antiplatelet therapy. Follow-up was cardiovascular surgical tech or conditions. 2. Distal femoral supracondyle fracture. Continue with analgesics. Patient did have ORIF of the supracondylar fracture of the right femur using plate for supracondylar fracture and screws. Continue physical therapy. 3. Seizure disorder. Likely secondary to history of brain metastasis. Continue Keppra and seizure precautions. 4. Anemia. Noted with iron deficiency. Continue iron supplement. 5. 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 Patient for outpatient follow-up with oncologist. Patient for outpatient chemotherapy per her oncologist. Disposition and plan: Continue with physical therapy. We will see for acute rehab transfer. Will follow up with case management. Discussed plan of care with Dr. Trejo Problems: Subjective 24 Hr Interval Summary Free Text/Dictation no s/s of distress Exam/Review of Systems Vital Signs Vitals Vital Signs Date Time Temp Pulse Resp B/P Pulse Ox O2 Delivery O2 Flow Rate FiO2 04/17/17 08:00 Nasal Cannula 2.0 04/17/17 07:30 98.3 82 18 105/57 97 Intake and Output 04/16/17 04/16/17 04/17/17 15:00 23:00 07:00 Intake Total 1400 ml 1300 ml Output Total 1200 ml Balance 1400 ml 100 ml Exam Constitutional: alert, oriented Psych: nl mood/affect Head: atraumatic, normocephalic Eyes: nl conjunctiva Respiratory: clear to auscultation, normal air movement Cardiovascular: regular rate and rhythm Gastrointestinal: non-tender, soft Musculoskeletal: other (right leg in brace ) Extremities: other (minimal edema BLE ) Neurological: DOMESTIC TECHNICIAN II-XII intact, nl mental status, nl speech Results Result Diagram: 04/17/1724 04/17/17 0524 Results 24 hrs Laboratory Tests Test 04/17/17 05:24 White Blood Count 8.9 Red Blood Count 2.56 L Hemoglobin 7.2 L Hematocrit 22.5 L Mean Corpuscular Volume 87.9 Mean Corpuscular Hemoglobin 28.1 L Mean Corpuscular Hemoglobin Concent 32.0 Red Cell Distribution Width 15.9 H Platelet Count 181 Mean Platelet Volume 10.7 H Neutrophils % 68.7 Lymphocytes % 18.8 Monocytes % 6.9 Eosinophils % 4.7 Basophils % 0.3 Nucleated Red Blood Cells % 0.0 Neutrophils # 6.1 Lymphocytes # 1.7 Monocytes # 0.6 Eosinophils # 0.4 Basophils # 0.0 Nucleated Red Blood Cells # 0.0 Sodium Level 126 L Potassium Level 3.7 Chloride Level 96 L Carbon Dioxide Level 25 Anion Gap 9 Blood Urea Nitrogen 9 Creatinine 0.54 Glucose Level 78 Calcium Level 7.4 L Phosphorus Level 3.2 Magnesium Level 1.7 Medications Medications Current Medications Aspirin (Halfprin) 81 mg DAILY PO Last administered on 04/17/17 08:33; Admin Dose 81 MG; Start 04/08/17 at 09:00; Status Future hold Ondansetron HCl (Zofran Inj) 4 mg Q6H PRN IV NAUSEA AND/OR VOMITING Last administered on 04/13/17 19:26; Admin Dose 4 MG; Start 04/07/17 at 15:30 Levetiracetam (Keppra Liquid) 500 mg BID PO Last administered on 04/17/17 08: 32; Admin Dose 500 MG; Start 04/07/17 at 21:00 Pantoprazole (Protonix Tab) 40 mg DAILY@06 PO Last administered on 04/17/17 06:24; Admin Dose 40 MG; Start 04/08/17 at 06:00 Enoxaparin Sodium (Lovenox) 40 mg DAILY SC Last administered on 04/17/17 08: 43; Admin Dose 40 MG; Start 04/12/17 at 09:00; Status Future hold Docusate Sodium/ Ferrous Fumarate 1 tab 1 tab BID PO Last administered on 04/17 08:32; Admin Dose 1 TAB; Start 04/12/17 at 15:00 Sodium Chloride 1,000 ml @ 100 mls/hr Q10H IV Last administered on 04/17/17 06:26; Admin Dose 100 MLS/HR; Start 04/13/17 at 18:11 Acetaminophen (Ofirmev 1000mg/ 100ml Iv) 100 ml @ 400 mls/hr Q6H IVPB Last administered on 04/17/17 08:34; Admin Dose 400 MLS/HR; Start 04/14/17 at 10: 00 Isosorbide Mononitrate (Imdur) 30 mg DAILY PO Last administered on 04/17/17 08:33; Admin Dose 30 MG; Start 04/15/17 at 09:00 Hydromorphone HCl (Dilaudid) 4 mg Q4H PRN IV PAIN Last administered on 12:49; Admin Dose 4 MG; Start 04/14/17 at 14:30 Morphine Sulfate (Ms Contin (Er)) 15 mg BID PO Last administered on 04/17/17 08:33; Admin Dose 15 MG; Start 04/14/17 at 21:00 BERENICE COE Apr 17, 2017 13:32
[2017-04-17 14:04] VITALS: BP 123/65; RESP 20
[2017-04-17 18:48] LABS: HEMATOCRIT 23.6 % (37.0-47.0); HEMOGLOBIN 7.3 g/dl (12.0-16.0)
[2017-04-17 19:23] VITALS: BP 109/58; RESP 18
--- NOTE | 2017-04-17 22:42 | PN ---
DATE: 04/17/2017 Third postop day. Afebrile, comfortable, with the right lower extremity in a long-leg brace. H and H is 7.2/22.5. No neurovascular compromise. Can be up and around, with touchdown weightbearing on the right lower extremity. Dictated By: In Catherine Cannon MD /aleena/isabel /Document#: [id number]
[2017-04-18] MEDS: SOD CHLORIDE 0.9% 1,000 ML IV SCH ×5 (01:43→22:36)
[2017-04-18] MEDS: HYDROmorphONE 2 MG/ML SYG IV PRN ×5 (01:46→20:23)
[2017-04-18 01:54] VITALS: BP 117/65; RESP 18
[2017-04-18] MEDS: ACETAMINOPHEN 1000MG/100ML IV 100 ML IVPB SCH ×5 (06:06→22:36)
[2017-04-18] MEDS: PANTOPRAZOLE (EC) 40 MG TAB PO SCH (06:06)
[2017-04-18 06:25] LABS: BASOPHILS % 0.4 % (0.0-2.0); EOSINOPHILS # 0.4 10^3/ul (0.0-0.5); EOSINOPHILS % 5.5 % (0.0-7.0); HEMATOCRIT 23.1 % (37.0-47.0); HEMOGLOBIN 7.3 g/dl (12.0-16.0); LYMPHOCYTES # 1.5 10^3/ul (0.8-2.9); MEAN CORPUSCULAR HEMOGLOBIN 27.7 pg (29.0-33.0); MEAN CORPUSCULAR HGB CONC 31.6 g/dl (32.0-37.0); MEAN CORPUSCULAR VOLUME 87.5 fl (82.0-101.0); MEAN PLATELET VOLUME 10.5 fl (7.4-10.4); MONOCYTE # 0.5 10^3/ul (0.3-0.9); MONOCYTES % 6.5 % (0.0-11.0); NEUTROPHIL # 5.3 10^3/ul (1.6-7.5); PLATELET COUNT 192 10^3/UL (140-415); RED BLOOD COUNT 2.64 10^6/ul (4.20-5.40); RED CELL DISTRIBUTION WIDTH 15.9 % (11.5-14.5); WHITE BLOOD COUNT 7.8 10^3/ul (4.8-10.8)
[2017-04-18 07:02] LABS: CALCIUM 8.6 mg/dl (8.4-10.2); CREATININE 0.65 mg/dl (0.44-1.00); POTASSIUM 4.1 mmol/L (3.5-5.1)
[2017-04-18 07:41] VITALS: BP 122/59; RESP 18
[2017-04-18] MEDS: ASPIRIN (EC) 81 MG TAB PO SCH (09:05)
[2017-04-18] MEDS: FERROUS FUMARATE (SR) TAB PO SCH ×2 (09:05→20:24)
[2017-04-18] MEDS: LEVETIRACETAM (100 MG/ML) 5ML CUP PO SCH ×2 (09:05→20:22)
[2017-04-18] MEDS: ISOSORBIDE MONONITRATE(SR)30 MG TAB PO SCH (09:06)
[2017-04-18] MEDS: ENOXAPARIN 40 MG/0.4 ML SYG SC SCH (09:09)
[2017-04-18 09:13] VITALS: BP 118/67; PULSE 91
[2017-04-18] MEDS: morphine (ER) 15 MG TAB PO SCH ×2 (09:13→20:23)
--- NOTE | 2017-04-18 10:18 | CONS ---
Date/Time of Note Date/Time of Note DATE: 04/18/17 TIME: : Assessment/Plan Assessment/Plan Chief Complaint/Hosp Course This is a 46-year-old female that see in pain management consultation. Patient has a history of metastatic choriocarcinoma with widespread metastasis who had a pathological fracture of her distal femoral supracondylar fracture. Patient has had a definitive surgical procedure done 04/13. She complains of severe pain in the affected postsurgical knee region rated 10/10 with appropriate medications of IV Dilaudid at 3 mg IV every 3 hours. Additionally she is taking Dilaudid 8 mg every 3 hours as needed. She states that approximately 50 % her pain is alleviated with IV Dilaudid the pain is interfering with her physical functioning mood sleeping pattern she is postop day 1. She denies nausea vomiting constipation itching mental cloudiness sweating fatigue drowsiness side effects of current pain control medications are none with the exception of codeine-based medication she becomes nauseous. Patient has refused chemotherapy for her underlying diagnosis although she states she is getting in a second thought now since she has had a metastatic lesion to her bone. As far as pain management there is no history of alcohol or drug abuse patient has never admitted to any type of rehab program she is not asked for frequent dosings are short and or shortening intervals . Nor is she using her pain medication response to situational stressors there is no past history of arrests or victims for her been a victim of abuse. There are no psychosocial issues clinically apparent or by history. Pain management Problems: Consultation Date/Type/Reason Admit Date/Time Apr 07, 2017 at 13:46 Initial Consult Date 04/15/17 Type of Consultation: Pain management Referring Provider: CARY CALLAHAN FIELD AUDITOR 24 HR Interval Summary Free Text/Dictation He is doing well states her pain is under better control her only complaint is constipation. Denies nausea vomiting chest pain shortness of breath dizziness diplopia disorientation skin rash. Exam/Review of Systems Vital Signs Vitals Vital Signs Date Time Temp Pulse Resp B/P Pulse Ox O2 Delivery O2 Flow Rate FiO2 04/18/17 09:13 91 118/67 04/18/17 07:41 98.0 18 98 04/18/17 00:12 2.0 04/17/17 08:00 Nasal Cannula Intake and Output 04/17/17 04/17/17 04/18/17 15:00 23:00 07:00 Intake Total 100 ml 2340 ml 2225 ml Output Total 700 ml Balance 100 ml 2340 ml 1525 ml Exam Constitutional: alert, oriented, well developed Neurological: MOLD CLOSER HELPER II-XII intact, nl mental status, nl speech, nl strength, No DTR's symmetric, No confused, No focal weakness, No lethargic, No numbness , No other, No reflexes, No unresponsive Results Result Diagram: 04/18/17 0545 04/18/17 0545 Results 24 hrs Laboratory Tests Test 04/17/17 18:31 04/18/17 05:45 Hemoglobin 7.3 L 7.3 L Hematocrit 23.6 L 23.1 L White Blood Count 7.8 Red Blood Count 2.64 L Mean Corpuscular Volume 87.5 Mean Corpuscular Hemoglobin 27.7 L Mean Corpuscular Hemoglobin Concent 31.6 L Red Cell Distribution Width 15.9 H Platelet Count 192 Mean Platelet Volume 10.5 H Neutrophils % 68.0 Lymphocytes % 19.0 Monocytes % 6.5 Eosinophils % 5.5 Basophils % 0.4 Nucleated Red Blood Cells % 0.0 Neutrophils # 5.3 Lymphocytes # 1.5 Monocytes # 0.5 Eosinophils # 0.4 Basophils # 0.0 Nucleated Red Blood Cells # 0.0 Sodium Level 138 Potassium Level 4.1 Chloride Level 102 Carbon Dioxide Level 29 Anion Gap 11 Blood Urea Nitrogen 10 Creatinine 0.65 Glucose Level 85 Calcium Level 8.6 Medications Medications Current Medications Aspirin (Halfprin) 81 mg DAILY PO Last administered on 04/18/17 09:05; Admin Dose 81 MG; Start 04/08/17 at 09:00; Status Future hold Ondansetron HCl (Zofran Inj) 4 mg Q6H PRN IV NAUSEA AND/OR VOMITING Last administered on 04/13/17 19:26; Admin Dose 4 MG; Start 04/07/17 at 15:30 Levetiracetam (Keppra Liquid) 500 mg BID PO Last administered on 04/18/17 09: 05; Admin Dose 500 MG; Start 04/07/17 at 21:00 Pantoprazole (Protonix Tab) 40 mg DAILY@06 PO Last administered on 04/18/17 06:06; Admin Dose 40 MG; Start 04/08/17 at 06:00 Enoxaparin Sodium (Lovenox) 40 mg DAILY SC Last administered on 04/18/17 09: 09; Admin Dose 40 MG; Start 04/12/17 at 09:00; Status Future hold Docusate Sodium/ Ferrous Fumarate 1 tab 1 tab BID PO Last administered on 04/18 09:05; Admin Dose 1 TAB; Start 04/12/17 at 15:00 Sodium Chloride 1,000 ml @ 100 mls/hr Q10H IV Last administered on 04/18/17 01:43; Admin Dose 100 MLS/HR; Start 04/13/17 at 18:11 Acetaminophen (Ofirmev 1000mg/ 100ml Iv) 100 ml @ 400 mls/hr Q6H IVPB Last administered on 04/18/17 06:06; Admin Dose 400 MLS/HR; Start 04/14/17 at 10: 00 Isosorbide Mononitrate (Imdur) 30 mg DAILY PO Last administered on 04/18/17 09:06; Admin Dose 30 MG; Start 04/15/17 at 09:00 Hydromorphone HCl (Dilaudid) 4 mg Q4H PRN IV PAIN Last administered on 06:07; Admin Dose 4 MG; Start 04/14/17 at 14:30 Morphine Sulfate (Ms Contin (Er)) 15 mg BID PO Last administered on 04/18/17 09:13; Admin Dose 15 MG; Start 04/14/17 at 21:00 BRYCE RITCHIE Apr 18, 2017 10:18
[2017-04-18 15:07] VITALS: BP 116/57; RESP 16
--- NOTE | 2017-04-18 15:33 | PN ---
Date/Time of Note Date/Time of Note DATE: 04/18/17 TIME: 15:32 Assessment/Plan VTE Prophylaxis VTE Prophylaxis Intervention: SCD's Lines/Catheters IV C[facility] Type (from [facility] Peripheral IV Urinary Cath still in place: No Assessment/Plan Chief Complaint/Hosp Course Assessment and plan 1. Status post non-ST elevated myocardial infarction. Patient did have left heart catheterization that did show normal coronary arteries. Suspect possible coronary artery spasms. Continue antiplatelet therapy. Follow-up was senior air director recnatalia 2. Distal femoral supracondyle fracture. Continue with analgesics. Patient did have ORIF of the supracondylar fracture of the right femur using plate for supracondylar fracture and screws. Continue physical therapy. 3. Seizure disorder. Likely secondary to history of brain metastasis. Continue Keppra and seizure precautions. 4. Anemia. Noted with iron deficiency. Continue iron supplement. 5. 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 Patient for outpatient follow-up with oncologist. Patient for outpatient chemotherapy per her oncologist. Disposition and plan: Continue with physical therapy. awaiting ARU eval. will request OT evaL Discussed plan of care with Dr. Trejo Problems: Subjective 24 Hr Interval Summary Free Text/Dictation no s/s of distress Exam/Review of Systems Vital Signs Vitals Vital Signs Date Time Temp Pulse Resp B/P Pulse Ox O2 Delivery O2 Flow Rate FiO2 04/18/17 15:07 98.3 85 16 116/57 98 04/18/17 00:12 2.0 04/17/17 08:00 Nasal Cannula Intake and Output 04/17/17 04/17/17 04/18/17 15:00 23:00 07:00 Intake Total 100 ml 2340 ml 2225 ml Output Total 700 ml Balance 100 ml 2340 ml 1525 ml Exam Constitutional: alert, oriented Psych: nl mood/affect Head: atraumatic, normocephalic Eyes: nl conjunctiva Respiratory: clear to auscultation, normal air movement Cardiovascular: regular rate and rhythm Gastrointestinal: non-tender, soft Musculoskeletal: other (right leg in brace ) Extremities: other (minimal edema BLE ) Neurological: SET ILLUSTRATOR II-XII intact, nl mental status, nl speech Results Result Diagram: 04/18/17 0545 04/18/17 0545 Results 24 hrs Laboratory Tests Test 04/17/17 18:31 04/18/17 05:45 Hemoglobin 7.3 L 7.3 L Hematocrit 23.6 L 23.1 L White Blood Count 7.8 Red Blood Count 2.64 L Mean Corpuscular Volume 87.5 Mean Corpuscular Hemoglobin 27.7 L Mean Corpuscular Hemoglobin Concent 31.6 L Red Cell Distribution Width 15.9 H Platelet Count 192 Mean Platelet Volume 10.5 H Neutrophils % 68.0 Lymphocytes % 19.0 Monocytes % 6.5 Eosinophils % 5.5 Basophils % 0.4 Nucleated Red Blood Cells % 0.0 Neutrophils # 5.3 Lymphocytes # 1.5 Monocytes # 0.5 Eosinophils # 0.4 Basophils # 0.0 Nucleated Red Blood Cells # 0.0 Sodium Level 138 Potassium Level 4.1 Chloride Level 102 Carbon Dioxide Level 29 Anion Gap 11 Blood Urea Nitrogen 10 Creatinine 0.65 Glucose Level 85 Calcium Level 8.6 Medications Medications Current Medications Aspirin (Halfprin) 81 mg DAILY PO Last administered on 04/18/17 09:05; Admin Dose 81 MG; Start 04/08/17 at 09:00; Status Future hold Ondansetron HCl (Zofran Inj) 4 mg Q6H PRN IV NAUSEA AND/OR VOMITING Last administered on 04/13/17 19:26; Admin Dose 4 MG; Start 04/07/17 at 15:30 Levetiracetam (Keppra Liquid) 500 mg BID PO Last administered on 04/18/17 09: 05; Admin Dose 500 MG; Start 04/07/17 at 21:00 Pantoprazole (Protonix Tab) 40 mg DAILY@06 PO Last administered on 04/18/17 06:06; Admin Dose 40 MG; Start 04/08/17 at 06:00 Enoxaparin Sodium (Lovenox) 40 mg DAILY SC Last administered on 04/18/17 09: 09; Admin Dose 40 MG; Start 04/12/17 at 09:00; Status Future hold Docusate Sodium/ Ferrous Fumarate 1 tab 1 tab BID PO Last administered on 04/18 09:05; Admin Dose 1 TAB; Start 04/12/17 at 15:00 Sodium Chloride 1,000 ml @ 100 mls/hr Q10H IV Last administered on 04/18/17 12:36; Admin Dose 100 MLS/HR; Start 04/13/17 at 18:11 Acetaminophen (Ofirmev 1000mg/ 100ml Iv) 100 ml @ 400 mls/hr Q6H IVPB Last administered on 04/18/17 12:35; Admin Dose 400 MLS/HR; Start 04/14/17 at 10: 00 Isosorbide Mononitrate (Imdur) 30 mg DAILY PO Last administered on 04/18/17 09:06; Admin Dose 30 MG; Start 04/15/17 at 09:00 Hydromorphone HCl (Dilaudid) 4 mg Q4H PRN IV PAIN Last administered on 15:19; Admin Dose 4 MG; Start 04/14/17 at 14:30 Morphine Sulfate (Ms Contin (Er)) 15 mg BID PO Last administered on 04/18/17 09:13; Admin Dose 15 MG; Start 04/14/17 at 21:00 Polyethylene Glycol (Miralax) 17 gm DAILY PO ; Start 04/19/17 at 09:00 Senna/Docusate Sodium (Senokot-S) 2 tab BID PO ; Start 04/18/17 at 21:00 BERENICE COE Apr 18, 2017 15:33
[2017-04-18 20:00] VITALS: BP 121/69; RESP 20
[2017-04-18] MEDS: SENNA/DOCUSATE NA (8.6MG/50MG) TAB PO SCH (20:24)
[2017-04-19 02:00] VITALS: BP 112/60; RESP 20
[2017-04-19] MEDS: HYDROmorphONE 2 MG/ML SYG IV PRN ×5 (02:32→20:46)
[2017-04-19] MEDS: PANTOPRAZOLE (EC) 40 MG TAB PO SCH (05:11)
[2017-04-19] MEDS: ACETAMINOPHEN 1000MG/100ML IV 100 ML IVPB SCH ×3 (05:11→18:16)
[2017-04-19 06:00] LABS: BASOPHILS % 0.4 % (0.0-2.0); EOSINOPHILS # 0.4 10^3/ul (0.0-0.5); HEMATOCRIT 21.7 % (37.0-47.0); LYMPHOCYTES # 1.8 10^3/ul (0.8-2.9); LYMPHOCYTES % 21.4 % (15.0-51.0); MEAN CORPUSCULAR HEMOGLOBIN 27.6 pg (29.0-33.0); MEAN CORPUSCULAR HGB CONC 32.3 g/dl (32.0-37.0); MEAN CORPUSCULAR VOLUME 85.4 fl (82.0-101.0); MEAN PLATELET VOLUME 10.1 fl (7.4-10.4); MONOCYTE # 0.6 10^3/ul (0.3-0.9); MONOCYTES % 7.6 % (0.0-11.0); NEUTROPHIL # 5.3 10^3/ul (1.6-7.5); NEUTROPHILS % 64.9 % (39.0-77.0); PLATELET COUNT 193 10^3/UL (140-415); RED BLOOD COUNT 2.54 10^6/ul (4.20-5.40); RED CELL DISTRIBUTION WIDTH 15.9 % (11.5-14.5); WHITE BLOOD COUNT 8.2 10^3/ul (4.8-10.8)
[2017-04-19 06:46] LABS: CALCIUM 8.3 mg/dl (8.4-10.2); CREATININE 0.58 mg/dl (0.44-1.00); POTASSIUM 3.8 mmol/L (3.5-5.1)
[2017-04-19 08:02] VITALS: BP 103/56; RESP 18
[2017-04-19] MEDS ORDERED: POLYETHYLENE GLYCOL 17 GM PACKET PO SCH (09:00)
[2017-04-19] MEDS: LEVETIRACETAM (100 MG/ML) 5ML CUP PO SCH ×2 (09:59→20:45)
[2017-04-19] MEDS: SENNA/DOCUSATE NA (8.6MG/50MG) TAB PO SCH ×2 (10:00→20:45)
[2017-04-19] MEDS: ISOSORBIDE MONONITRATE(SR)30 MG TAB PO SCH (10:00)
[2017-04-19] MEDS: SOD CHLORIDE 0.9% 1,000 ML IV SCH ×2 (10:00→14:11)
[2017-04-19] MEDS: ASPIRIN (EC) 81 MG TAB PO SCH (10:00)
[2017-04-19] MEDS: morphine (ER) 15 MG TAB PO SCH ×3 (10:00→22:02)
[2017-04-19] MEDS: FERROUS FUMARATE (SR) TAB PO SCH ×2 (10:00→20:45)
[2017-04-19] MEDS: ENOXAPARIN 40 MG/0.4 ML SYG SC SCH (10:16)
[2017-04-19] MEDS ORDERED: SOD CHLORIDE 0.9% 250 ML IV* ONE (11:55)
[2017-04-19] MEDS ORDERED: PANT40TA4 PO (12:26)
[2017-04-19] MEDS ORDERED: SENN1TAB19 PO (12:26)
[2017-04-19] MEDS ORDERED: POLY17PO6 PO (12:26)
[2017-04-19] MEDS ORDERED: HYDR2SYR2 IV (12:26)
[2017-04-19] MEDS ORDERED: LEVETIRACETAM PO (12:26)
[2017-04-19] MEDS ORDERED: FERR1TAB14 PO (12:26)
[2017-04-19] MEDS ORDERED: ISOS30TA5 PO (12:26)
[2017-04-19] MEDS ORDERED: ENOX40DI12 SC (12:26)
[2017-04-19] MEDS ORDERED: ASPI-664 PO (12:26)
[2017-04-19] MEDS ORDERED: MORP15TA3 PO (12:26)
--- NOTE | 2017-04-19 12:28 | PDOCDIS ---
Discharge Instructions DIAGNOSIS Discharge Diagnosis 1. Status post non-ST elevated myocardial infarction. 2. Distal femoral supracondyle fracture. 3. Seizure disorder. 4. Anemia. CONDITION Patient Condition: Stable HOME CARE INSTRUCTIONS: Special Diet: low fat, low cholesterol BERENICE COE Apr 19, 2017 12:28
[2017-04-19 13:12] VITALS: BP 124/70; RESP 20
[2017-04-19 19:19] VITALS: BP 117/72; RESP 20
== END 2017-04-19 22:05 | DRG 982 ==
LOC: E/R 08:59 → TEL 13:46 → MS2 04-16 14:30
PROVIDERS: ADMIT Family Medicine; ATTEND Family Medicine
PROC: B211YZZ Fluoroscopy of Multiple Coronary Arteries using Other Contrast (ICD-10-PCS; 2017-04-10)
PROC: 4A023N7 Measurement of Cardiac Sampling and Pressure, Left Heart, Percutaneous Approach (ICD-10-PCS; principal; 2017-04-10 12:30)
PROC: 0QSB04Z Reposition Right Lower Femur with Internal Fixation Device, Open Approach (ICD-10-PCS; 2017-04-13)
DX: I21.4 Non-ST elevation (NSTEMI) myocardial infarction (principal); C78.00 Secondary malignant neoplasm of unspecified lung; C79.31 Secondary malignant neoplasm of brain; C79.51 Secondary malignant neoplasm of bone; M84.551A Pathological fracture in neoplastic disease, right femur, initial encounter for fracture; Z68.41 Body mass index [BMI] 40.0-44.9, adult; C58 Malignant neoplasm of placenta; G40.909 Epilepsy, unspecified, not intractable, without status epilepticus; K21.9 Gastro-esophageal reflux disease without esophagitis; E66.9 Obesity, unspecified; I10 Essential (primary) hypertension; E11.9 Type 2 diabetes mellitus without complications; D50.9 Iron deficiency anemia, unspecified
CPT/HCPCS: 36415; 36430; 70450; 71010; 71275; 73550; 73560; 73562; 73700; 80048; 80053; 80061; 81003; 82550; 82553; 82728; 83036; 83540; 83605; 83735; 84100; 84443; 84484; 85014; 85018; 85025; 85610; 85730; 86850; 86900; 86901; 86920; 87040; 87086; 93005; 93306; 93458; 93970; 96372; 96374; 96375; 96376; 97110; 97116; 97162; 97530; C1713; C1887; J0131; J0690; J1100; J1170; J1644; J1650; J1940; J2175; J2250; J2270; J2405; J3010; J7030; J7040; L1832; P9016; Q9967

== ENCOUNTER 2017-04-19 22:42 | Inpatient (IN) | END 2017-04-28 15:20 | disposition home health service (06) | DRG 559 ==

== ENCOUNTER 2017-05-14 23:52 | Inpatient (IN) | END 2017-05-20 22:30 | disposition EXP | DRG 755 ==